=== PATIENT | female | born 1985 | race Caucasian/White ===

== ENCOUNTER 2017-06-30 16:35 | Emergency (ER) | payer OTHER ==
[~2017-06-30] VITALS: Ht 167.6 cm; Wt 86.2 kg
--- OUTSIDE RECORDS SUMMARY | ~2017-06-30 | XMS ---
Demographics + + + | Address | [address] | | | [place] [address] | + + + | Preferred Language | Unknown | + + + | Marital Status | Unknown | + + + | Faith Affiliation | Unknown | + + + | Race | Unknown | + + + | Ethnic Group | Unknown | + + + Author + + + | Author | [facility] | + + + | Organization | [facility] | + + + | Address | [address] | | | [place] [address] | + + + | Phone | | + + + Care Team Providers + + + + | Care Toy Designer Name | Role | Phone | + + + + Unavailable | Unavailable | + + + + PROBLEMS +---------+ + + +--------+ + + | Type | Condition | ICD9-CM | [id number] | Onset | Condition | SNOMED | | | | Code | Code | Dates | Status | Code | +---------+ + + +--------+ + + | Problem | Encounter | Z34.90 | | | Active | [id number] | | | for | | | | | | | | supervisio | | | | | | | | n of | | | | | | | | normal | | | | | | | | | | | | | | +---------+ + + +--------+ + + | Problem | Asthma | | J45.909 | | Active | [id number] | +---------+ + + +--------+ + + ALLERGIES Unknown Allergies SOCIAL HISTORY No smoking Hx information available PLAN OF CARE VITAL SIGNS MEDICATIONS Unknown Medications RESULTS No Results PROCEDURES No Known procedures IMMUNIZATIONS No Known Immunizations"
[~2017-06-30 16:35] MED LIST: ADVAIR 250-501 EACH INH; ALBUTEROL SULF8.5 GM INH; CELEXA20 MG PO; CELEXA40 MG PO; CLARITIN10 MG PO; CYCLOBENZAPRINE5 MG PO; MACROBID 100 M100 MG PO; OMEPRAZOLE20 MG PO; ONDANSETRON ODT8 MG PO; PHENADOZ25 MG PR; PHENERGAN25 MG RC; POTASSIUM CHLO20 ME1 PO; PRENATAL 19 CH1 EAC1 PO; PRENATAL VITAM1 EAC7 PO; PROMETHAZINE HC25 M1 PO; PROMETHAZINE HC25 MG PR; REGLAN10 MG PO; ZOFRAN ODT4 MG PO; ZOFRAN ODT4 MG SL; ZOFRAN4 MG PO
== END 2017-06-30 16:48 | disposition home or self-care (01) ==
LOC: ED 16:35
DX: Z00.8 Encounter for other general examination (principal)

== ENCOUNTER 2017-08-10 01:40 | Inpatient (IN) | payer OTHER ==
[~2017-08-10] VITALS: Ht 167.6 cm; Wt 91.0 kg
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
--- OUTSIDE RECORDS SUMMARY | ~2017-08-10 | XMS ---
Demographics + + + | Address | [address] | | | [place] [address] | + + + | Preferred Language | Unknown | + + + | Marital Status | Unknown | + + + | Lutheran Affiliation | Unknown | + + + | Race | Unknown | + + + | Ethnic Group | Unknown | + + + Author + + + | Author | [facility] | + + + | Organization | [facility] | + + + | Address | [address] | | | [place] [address] | + + + | Phone | | + + + Care Team Providers + + + + | Care Hog Ringer Name | Role | Phone | + + + + Unavailable | Unavailable | + + + + PROBLEMS +---------+ + + +--------+ + + | Type | Condition | ICD9-CM | [id number] | Onset | Condition | SNOMED | | | | Code | Code | Dates | Status | Code | +---------+ + + +--------+ + + | Problem | Encounter | Z34.90 | | | Active | [id number] | | | for | | | | | | | | supervisio | | | | | | | | n of | | | | | | | | normal | | | | | | | | | | | | | | +---------+ + + +--------+ + + | Problem | Asthma | | J45.909 | | Active | [phone] | +---------+ + + +--------+ + + [...]
--- OUTSIDE RECORDS SUMMARY | ~2017-08-10 | XMS ---
Demographics + + + | Address | [address] | | | [place] [address] | + + + | Preferred Language | Unknown | + + + | Marital Status | Unknown | + + + | Rastafari Affiliation | Unknown | + + + | Race | Unknown | + + + | Ethnic Group | Unknown | + + + Author + + + | Author | [facility] | + + + | Organization | [facility] | + + + | Address | [address] | | | [place] [address] | + + + | Phone | | + + + Care Team Providers + + + + | Care Flavorer Name | Role | Phone | + + + + Unavailable | Unavailable | + + + + PROBLEMS +---------+ + + +--------+ + + | Type | Condition | ICD9-CM | [id number] | Onset | Condition | SNOMED | | | | Code | Code | Dates | Status | Code | +---------+ + + +--------+ + + | Problem | Encounter | Z34.90 | | | Active | [id number] | | | for | | | | | | | | supervisio | | | | | | | | n of | | | | | | | | normal | | | | | | | | | | | | | | +---------+ + + +--------+ + + | Problem | Asthma | | J45.909 | | Active | [id number] | +---------+ + + +--------+ + + [...]
--- OUTSIDE RECORDS SUMMARY | ~2017-08-10 | XMS ---
Demographics + + + | Address | [address] | | | [place] [address] | + + + | Preferred Language [...] | + + + | Organization | [facility] | + + + | Address | [address] | | | [place] [address] | + + + | Phone | | + + + Care Team Providers + + + + | Care Day Habilitation Specialist Name | Role | Phone | + + + + Unavailable | Unavailable | + + + + PROBLEMS +---------+ + + +--------+ + + | Type | Condition | ICD9-CM | APU53-ZE | Onset | Condition | SNOMED | | | | Code | Code | Dates | Status | Code | +---------+ + + +--------+ + + | Problem | Encounter | Z34.90 | | | Active | [id number] | | | for | | | | | | | | supervisio | | | | | | | | n of | | | | | | | | normal | | | | | | | | | | | | | | +---------+ + + +--------+ + + | Problem | Asthma | | J45.909 | | Active | [phone] | +---------+ + + +--------+ + + [...]
--- OUTSIDE RECORDS SUMMARY | ~2017-08-10 | XMS ---
Demographics + + + | Address | [address] | | | [place] [address] | + + + | Preferred Language | Unknown | + + + | Marital Status | Unknown | + + + | Judaism Affiliation | Unknown | + + + | Race | Unknown | + + + | Ethnic Group | Unknown | + + + Author + + + | Author | [facility] | + + + | Organization | [facility] | + + + | Address | [address] | | | [place] [address] | + + + | Phone | | + + + Care Team Providers + + + + | Care Commissioning Manager Name | Role | Phone | + + + + Unavailable | Unavailable | + + + + PROBLEMS +---------+ + + +--------+ + + | Type | Condition | ICD9-CM | OQI71-DU | Onset | Condition | SNOMED | | | | Code | Code | Dates | Status | Code | +---------+ + + +--------+ + + | Problem | Encounter | Z34.90 | | | Active | [id number] | | | for | | | | | | | | supervisio | | | | | | | | n of | | | | | | | | normal | | | | | | | | | | | | | | +---------+ + + +--------+ + + | Problem | Asthma | | J45.909 | | Active | [phone] | +---------+ + + +--------+ + + [...]
--- NOTE | 2017-08-10 05:32 | NUR ---
08/10/17 0532 Meghann Whitney 0524 - PT ARRIVED TO PACU. MAINTAINING OWN AIRWAY. DENIES PAIN AND NAUSEA.
--- NOTE | 2017-08-11 15:37 | OR ---
[facility] [address], [place] [address] Signed DATE OF PROCEDURE: 08/10/17 PREOPERATIVE DIAGNOSES The patient is a 32-year-old, 6, para 4 at 37.6 weeks with estimated gestational age, who presents to a birthing center with spontaneous rupture of membranes in active labor. She is for repeat of the section. Has a history of hyperemesis gravidarum, anemia, of borderline personality disorder with depression and PTSD, asthma. The has been complicated by multiple episodes of hypokalemia for which she has been treated with IV therapy. POSTOPERATIVE DIAGNOSES The patient is a 32-year-old, 6, para 4 at 37.6 weeks with estimated gestational age, who presents to a birthing center with spontaneous rupture of membranes in active labor. She is for repeat of the section. Has a history of hyperemesis gravidarum, anemia, of borderline personality disorder with depression and PTSD, asthma. The has been complicated by multiple episodes of hypokalemia for which she has been treated with IV therapy. PROCEDURE Emergent low transverse section with bilateral tubal ligation and lysis of adhesions. GARDENING SUPERVISOR SURGEON: Fantasma Young MD. ANESTHESIOLOGIST: Jann Rabago CRNA. IV FLUIDS: 1750 mL. ESTIMATED BLOOD LOSS: 750 mL. URINE OUTPUT: 300 mL with Silva draining to gravity. FINDINGS Extremely scarred abdominal wall with fascial thickening and scarring as well as omental adhesions and abnormally thickened uterine wall with scarring. PROCEDURE TECHNIQUE The patient was taken to the operating room with IV fluids hanging. She was placed in the sitting upright position and a spinal was placed. She was then repositioned in the supine position with a left lateral tilt. She was prepped and draped in the normal sterile fashion. A Silva catheter had been placed with sterile technique prior to the prep. She was then checked for anesthesia. A Pfannenstiel skin incision was made with a Electronically Signed By: ANJELICA MOREL MD 08/11/17 1537 PATIENT NAME: EH MCCRAY OPERATIVE REPORT DATE OF : 89 PHYSICIAN: ANJELICA MOREL MD REPORT #: [id number] REPORT IS CONFIDENTIAL AND NOT TO BE RELEASED WITHOUT AUTHORIZATION [facility] [address], [place] [address] Signed scalpel through the skin and through the subcutaneous tissue to the fascia, which was nicked in the midline. Bovie cautery was used as well as Garnett scissors. The incision was extended laterally with some difficulty due to significant scarring and thickening of that layer. Saji clamps were then used to grasp the inferior edge of the fascia and tented up and exposed the rectus abdominis muscles, which were off sharply and bluntly. The same was performed superiorly and the rectus abdominis muscles were in the midline. Garnett scissors were used to extend that incision superiorly and inferiorly. The attention was then turned to the bladder which was noted be quite low and the Karel retractor was placed into the incision and tightened down against the anterior abdominal wall. The uterovesical fascia was then easily visualized and it was noted that there was some significant scarring. A bladder flap was then created by entering the uterovesical fascia with Metzenbaum scissors and pushing the bladder down below the edge of the lower uterine segment. The scalpel was then used to incise the lower uterine segment, which was noted to be quite thin and the excision was extended laterally and digitally. The amniotic sac was noted to bulge out and was easily ruptured and baby's shoulders were noted to be present at the incision site. The blindstitch machine operator's hand was placed through the incision into the pelvis and baby's head and shoulders were lifted out through the incision in the direct OA position. The baby's right arm and shoulder were then delivered through the incision and then baby was delivered completely. The baby was bulb suctioned both mouth and nose, and cord was clamped and cut. The baby was passed off to the awaiting pediatric nurse. Baby was noted to have a weight of 7 pounds 11 ounces with Apgars of 8 at one minute and 9 at five minutes. Attention was then turned to the uterus where the cord blood had been drawn, the placenta was off manually and laparotomy sponge was used to clear out all membranes and debris from the uterus. The lateral apices were clamped with T clamps. There was a small extension of the incision noted on the patient's left apex. An 0 Monocryl was used to reapproximate the uterine incision in a continuous running locked fashion. A second layer was used to imbricate the first with 0 Monocryl continuous running in a vertical mattress fashion. There were some areas that needed to be oversewn with [id number] due to the bleeding and areas that were thin or had extra vasculature. Once good hemostasis was achieved, the pelvis was then irrigated with normal saline. Attention was then turned to the right fallopian tube, which was grasped with a Smita clamp. A small hole was made through the mesosalpinx and 0 chromic gut was then tied on either side of the tube. Tubal segment was cut with Metzenbaum scissors and passed off to pathology. Good hemostasis was achieved in those areas that were excised and same was performed on the left fallopian tube. Both sides were hemostatic and the uterus was then returned to the pelvis. The incision again inspected for hemostasis, which was adequate and the Karel retractor was then removed from the pelvis. The peritoneum was then identified and clamped with Nica clamps x3. The omentum was noted to be adherent to several areas and had to be freed from the peritoneum and so there was no entrapment of bowel. It was tied off and excised using the 0 chromic gut. Once it was cleared, the peritoneum was then reapproximated with 2-0 Vicryl in a Electronically Signed By: ANJELICA MOREL MD 08/11/17 1537 PATIENT NAME: EH MCCRAY OPERATIVE REPORT DATE OF : 89 PHYSICIAN: ANJELICA MOREL MD REPORT #: [id number] REPORT IS CONFIDENTIAL AND NOT TO BE RELEASED WITHOUT AUTHORIZATION [facility] [address] [place] [id number] Signed continuous running fashion. Good hemostasis was achieved and prior to closing the peritoneum, the ACell graft was placed over the uterine incision to promote healing. Attention was then turned to the rectus abdominis muscles, which were reapproximated with 0 Vicryl interrupted x2. There was a small area with a rent in the fascial layer anteriorly that was reapproximated with ksifhj-yo-uhneh 0 Vicryl as well and then the fascia and prior to doing this, the rectus abdominis muscle was sprinkled with ACell powder again to promote healing. The fascia was then reapproximated using 0 Vicryl in a continuous running fashion from the right apex to the midline and from the left apex to the midline. Good hemostasis was achieved and the subcutaneous layer was then approximated using 2-0 Vicryl in a continuous running fashion. A-Cell powder was sprinkled on the layers in order to promote healing and the skin was then closed using stainless steel stapler. A pressure dressing was placed over the incision and the uterus was expressed of all clots and debris. The patient was then taken to the [facility] room in stable condition. All sponge, needle, and instrument counts were correct. There were no complications and the baby had been taken to the nursery. MD SHUBHAM Adams/Ervin /[id number] cc: Sumit Levi DO Electronically Signed By: ANJELICA MOREL MD 08/11/17 1537 PATIENT NAME: EH MCCRAY JERILYN OPERATIVE REPORT DATE OF : 89 PHYSICIAN: ANJELICA MOREL MD REPORT #: [id number] REPORT IS CONFIDENTIAL AND NOT TO BE RELEASED WITHOUT AUTHORIZATION
== END 2017-08-12 11:35 | disposition home or self-care (01) | DRG 766 ==
LOC: FBCO 01:40 → FBC 01:55
PROVIDERS: ADMIT Obstetrics & Gynecology
PROC: 0UT70ZZ Resection of Bilateral Fallopian Tubes, Open Approach (ICD-10-PCS; 2017-08-10)
PROC: 10D00Z1 Extraction of Products of Conception, Low, Open Approach (ICD-10-PCS; principal; 2017-08-10 03:50)
DX: O34.211 Maternal care for low transverse scar from previous cesarean delivery (principal); Z3A.37 37 weeks gestation of pregnancy; Z37.0 Single live birth; O42.02 Full-term premature rupture of membranes, onset of labor within 24 hours of rupture; Z30.2 Encounter for sterilization
CPT/HCPCS: 01961; 36415; 80048; 85027; 90674; 94640; 94667; 94668; C1763; G0008; J0690; J1200; J1885; J2274; J2405; J2550; J2590; J2765; J3010; J3105; J3480; J7120

== ENCOUNTER 2017-09-17 08:57 | Emergency (ER) | payer OTHER ==
[~2017-09-17] VITALS: Ht 167.6 cm; Wt 90.7 kg
== END 2017-09-17 12:13 | disposition home or self-care (01) ==
LOC: ED 08:57
DX: O99.355 Diseases of the nervous system complicating the puerperium (principal); G43.A0 Cyclical vomiting, in migraine, not intractable; O99.345 Other mental disorders complicating the puerperium; F32.9 Major depressive disorder, single episode, unspecified; O99.335 Smoking (tobacco) complicating the puerperium; F17.200 Nicotine dependence, unspecified, uncomplicated; Z90.49 Acquired absence of other specified parts of digestive tract; Z88.0 Allergy status to penicillin; Z79.899 Other long term (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
CPT/HCPCS: 80053; 83690; 85025; 96361; 96372; 96374; 96375; 99283; J2405; J2550; J3486; J7030

== ENCOUNTER 2019-01-03 15:44 | Emergency (ER) | payer OTHER ==
[~2019-01-03] VITALS: Ht 167.6 cm; Wt 86.2 kg
--- OUTSIDE RECORDS SUMMARY | 2019-01-03 15:46 | XMS ---
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 Care History Substance Use/Overdose 01/28/2018 [facility] PATIENT CURRENTLY USING METHAMPHETAMINES. USE CAUTION WITH ANY NARCOTICS. PATIENT IS CURRENTLY HOMELESS AND HER CHILDREN ARE IN STATE CUSTODY. REFER TO MENTAL HEALTH FOLLOW UP AND ENCOURAGE DRUG/ALCOHOL REHABILITATION. E.D. VISIT COUNT (12 MO.) 1 [facility] TOTAL 1 NOTE: Visits indicate total known visits. ED/UCC VISIT TRACKING (12 MO.) 01/03/2019 15:45 [facility] [place] TYPE: Emergency COMPLAINT: - R EYE PAIN INPATIENT VISIT TRACKING (12 MO.) No inpatient visits to display in this time frame [id number]
[2019-01-03] MEDS ORDERED: CITALOPRAM HBR40 MG PO (16:00)
[2019-01-03] MEDS ORDERED: DOXYCYCLINE HY100 MG PO (16:14)
== END 2019-01-03 16:23 | disposition home or self-care (01) ==
LOC: ED 15:44
DX: L08.9 Local infection of the skin and subcutaneous tissue, unspecified (principal); J45.909 Unspecified asthma, uncomplicated; F43.10 Post-traumatic stress disorder, unspecified; F32.9 Major depressive disorder, single episode, unspecified; Z88.0 Allergy status to penicillin; Z79.899 Other long term (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
CPT/HCPCS: 99283

== ENCOUNTER 2019-02-15 10:39 | Emergency (ER) | payer OTHER ==
[~2019-02-15] VITALS: Ht 167.6 cm; Wt 86.2 kg
--- OUTSIDE RECORDS SUMMARY | ~2019-02-15 | XMS | Clinical Summary ---
Demographics + + + | Address | General Delivery | | | [place] [address] | + + + | Home Phone | | + + + | Preferred Language | Unknown | + + + | Marital Status | | + + + | Gnosticist Affiliation | Unknown | + + + | Race | Unknown | + + + | Ethnic Group | Unknown | + + + Author + + + | Author | [facility] | | | and [place] | + + + | Organization | [facility] | | | [...] Team Providers + +------+ + | Care Chief Of Staff Name | Role | Phone | + +------+ + | No, Physician | PP | Unavailable | + +------+ + Allergies + + + +--------+ + | Active Allergy | Reactions | Severity | Noted | Comments | | | | | Date | | + + + +--------+ + | Estradiol | Nausea And Vomiting | | | | + + + +--------+ + | Penicillins | Hives | | | | + + + +--------+ + Medications + + + +---------+------+------+-------+ | Medication | Sig | Dispensed | Refills | Star | End | Statu | | | | | | t | Date | s | | | | | | Date | | | + + + +---------+------+------+-------+ | 27-0.8 mg | Take 1 tablet by | | 0 | | | Activ | | multivitamin tablet | mouth Daily. | | | | | e | + + + +---------+------+------+-------+ | predniSONE | Take by mouth | | 0 | | | Activ | | (DELTASONE) 20 mg | Daily. | | | | | e | | tablet | | | | | | | + + + +---------+------+------+-------+ | | Inhale 1 puff into | | 0 | | | Activ | | fluticasone-salmeter | the lungs Twice | | | | | e | | ol (ADVAIR) 250-50 | Daily. | | | | | | | mcg/puff diskus | | | | | | | | inhaler | | | | | | | + + + +---------+------+------+-------+ | citalopram | Take 40 mg by mouth | | 0 | | | Activ | | (CELEXA) 40 mg | Daily. | | | | | e | | tablet | | | | | | | + + + +---------+------+------+-------+ Active Problems + + + | Problem | Noted Date | + + + | ASTHMA | | + + + | ALLERGIC RHINITIS | | + + + | DEPRESSION | | + + + | ECZEMA | | + + + Social History + + + +--------+ + | Tobacco Use | Types | Packs/Day | Years | Date | | | | | Used | | + + + +--------+ + | Former Smoker | Cigarettes | 0.5 | 0.5 | Quit: 02/16/2014 | + + + +--------+ + + +---+---+---+ | Smokeless Tobacco: | | | | | Never Used | | | | + +---+---+---+ + + +---------+ + | Alcohol Use | Drinks/We | oz/Week | Comments | | | ek | | | + + +---------+ + | No | | | | + + +---------+ + + + + | Sex Assigned at [...] recent travel history available. | + + Last Filed Vital Signs + + + + | Vital Sign | Reading | Time Taken | + + + + | Blood Pressure | 101/74 | 01/01/201843 PDT | + + + + | Pulse | 76 | 01/01/201843 PDT | + + + + | Temperature | 36.1 C (97 F) | 12/31/20172151 PDT | + + + + | Respiratory Rate | 14 | 01/01/201843 PDT | + + + + | Oxygen Saturation | 96% | 01/01/20184 PDT | + + + + | Inhaled Oxygen | - | - | | Concentration | | | + + + + | Weight | 73 kg (160 lb 15 oz) | 12/31/20172151 PDT | + + + + | Height | 167.6 cm (5' 6") | 12/31/20172151 PDT | + + + + | Body Mass Index | 25.98 | 12/31/20172151 PDT | + + + + Plan of Treatment + + + + + | Health Maintenance | Due Date | Last Done | Comments | + + + + + | Vaccine: | | | | | Dtap/Tdap/Td (1 - | 6 | | | | Tdap) | | | | + + + + + | Cervical Cancer | | 10/20/2008 | | | Screening (Pap) | 7 | | | + + + + + | Vaccine: Influenza | | | | | (Season Ended) | 9 | | | + + + + + Results Not on filefrom Last 3 Months Insurance + +--------+ +--------+ +---------+--------+ | Payer | Benefi | Subscriber | Effect | Phone | Address | Type | | | t Plan | ID | gus | | | | | | / | | Dates | | | | | | Group | | | | | | + +--------+ +--------+ +---------+--------+ | [employer] | CAREOR | [id number] | | [phone] | | Medica | | HMO | EGON | | 018-Pr | 0 | | id | | | HEALTH | | esent | | | | | | SHARE | | | | | | | | MDCD | | | | | | | | HMO [place] | | | | | | + +--------+ +--------+ +---------+--------+ + +--------+ +--------+ + + | Guarantor Name | Accoun | Relation to | Date | Phone | Billing Address | | | t Type | Patient | of | | | | | | | | | | + +--------+ +--------+ + + | Patito Nelson | Person | Self [birth year] | General Delivery | | | al/Fam | | 1984 | [phone] | [address] | | | may | | | [address] ([place]) | [address] | + +--------+ +--------+ + + Advance Directives Patient has advance care planning documents on file. For more information, please contact:[facility] [place] [address]
--- OUTSIDE RECORDS SUMMARY | ~2019-02-15 | XMS | Clinical Summary ---
Demographics + + + | Address | General Delivery | | | [place] [address] | + + + | Home Phone | | + + + | Preferred Language | Unknown | + + + | Marital Status | | + + + | Catholic Affiliation | Unknown | + + + | Race | Unknown | + + + | Ethnic Group | Unknown | + + + Author + + + | Author | [facility] | | | and [place] | + + + | Organization | [facility] | | | [...] Team Providers + +------+ + | Care Pit Shoveler Name | Role | Phone | + [...] +---------+--------+ | [employer] | CAREOR | [id number] | | [phone] | | Medica | [...] | | may | | | 4 ([place]) | [address] | + +--------+ +--------+ + + Advance Directives Patient has advance care planning documents on file. For more information, please contact:[facility] [place] [address]
[~2019-02-15 10:39] MED LIST changes: +CITALOPRAM HBR40 MG PO; +DOXYCYCLINE HY100 MG PO
--- OUTSIDE RECORDS SUMMARY | 2019-02-15 10:42 | XMS ---
PreManage Notification: EH MCCRAY Security Outsole Tacker Events No recent Security Events currently on file CRITERIA MET - Group Notification - [facility] CARE PROVIDERS FREDY ADAMS Physician 01/04/2019-Current PHONE: Unknown KIMBERLEE Stoddard Internal Medicine Current PHONE: Unknown [employer] Case or World History Teacher Current PHONE: [phone] FREDY Parham Current PHONE: [phone] Saleem has no Care Guidelines for this patient. Care History Substance Use/Overdose 01/28/2018 [facility] PATIENT CURRENTLY USING METHAMPHETAMINES. USE CAUTION WITH ANY NARCOTICS. PATIENT IS CURRENTLY HOMELESS AND HER CHILDREN ARE IN STATE CUSTODY. REFER TO MENTAL HEALTH FOLLOW UP AND ENCOURAGE DRUG/ALCOHOL REHABILITATION. Steve VISIT COUNT (12 MO.) 2 [facility] TOTAL 2 NOTE: Visits indicate total known visits. ED/UCC VISIT TRACKING (12 MO.) 02[facility]15/2019 10:[facility] [place] TYPE: Emergency COMPLAINT: - DIFFICULTY BREATHING 01/03/2019 15:[address] 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
[2019-02-15] MEDS ORDERED: PREDNISONE20 MG PO (11:10)
[2019-02-15] MEDS ORDERED: VENTOLIN HFA18 GM INH (11:10)
== END 2019-02-15 11:23 | disposition home or self-care (01) ==
LOC: ED 10:39
DX: J45.901 Unspecified asthma with (acute) exacerbation (principal); F43.10 Post-traumatic stress disorder, unspecified; F32.9 Major depressive disorder, single episode, unspecified; Z88.0 Allergy status to penicillin; Z79.899 Other long term (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
CPT/HCPCS: 94640; 99284; J7512

== ENCOUNTER 2019-08-04 22:29 | Observation (INO) | payer OTHER ==
[~2019-08-04] VITALS: Ht 167.6 cm; Wt 86.0 kg
--- OUTSIDE RECORDS SUMMARY | ~2019-08-04 | XMS | Clinical Summary ---
Demographics + + + | Address | General Delivery | | | [place] [address] | + + + | Home Phone | | + + + | Preferred Language | Unknown | + + + | Marital Status | | + + + | Catholic Affiliation | Unknown | + + + | Race | Unknown | + + + | Ethnic Group | Unknown | + + + Author + + + | Author | [facility] | | | and [place] | + + + | Organization | [facility] | | | [...] Team Providers + +------+ + | Care Certification Technician Name | Role | Phone | + [...] +---------+--------+ | [employer] | CAREOR | [id number] | | [phone] | | Medica | [...] | | may | | | 4 ([place]) | [address] | + +--------+ +--------+ + + Advance Directives Patient has advance care planning documents on file. For more information, please contact:[facility] [place] [address]
--- OUTSIDE RECORDS SUMMARY | ~2019-08-04 | XMS | Clinical Summary ---
Demographics + + + | Address | General Delivery | | | [place] [address] | + + + | Home Phone | | + + + | Preferred Language | Unknown | + + + | Marital Status | | + + + | Judaism Affiliation | Unknown | + + + [...] Team Providers + +------+ + | Care Commercial Intelligence Manager Name | Role | Phone | + [...] +---------+--------+ | [employer] | CAREOR | [id number] | | [phone] | | Medica | [...] | | may | | | 4 ([place]) | [address] | + +--------+ +--------+ + + Advance Directives Patient has advance care planning documents on file. For more information, please contact:[facility] [place] [address]
--- OUTSIDE RECORDS SUMMARY | ~2019-08-04 | XMS | Clinical Summary ---
Demographics + + + | Address | General Delivery | | | [place] [address] | + + + | Home Phone | | + + + | Preferred Language | Unknown | + + + | Marital Status | | + + + | Restorationist Affiliation | Unknown | + + + | Race | Unknown | + + + | Ethnic Group | Unknown | + + + Author + + + | Author | [facility] | | | and [place] | + + + | Organization | [facility] | | | [...] Providers + +------+ + | Care Commercial Attache Name | Role | Phone | + [...] +---------+--------+ | [employer] | CAREOR | [id number] | | [phone] | | Medica | [...] | | may | | | 4 ([place]) | [address] | + +--------+ +--------+ + + Advance Directives Patient has advance care planning documents on file. For more information, please contact:[facility] [place] [address]
[~2019-08-04 22:29] MED LIST changes: +PREDNISONE20 MG PO; +VENTOLIN HFA18 GM INH
--- OUTSIDE RECORDS SUMMARY | 2019-08-04 22:32 | XMS ---
PreManage Notification: [facility] Security Systems Management Consultant Events No recent Security Events currently on file CRITERIA MET - Group Notification - [facility] - Has [facility] CARE PROVIDERS FREDY ADAMS Physician Labor Supervisor 01/04/2019-Current PHONE: Unknown Shreyas Rangel Internal Medicine: Pulmonary Disease 02/15/2019-Current PHONE: Unknown KIMBERLEE Stoddard Internal Medicine Current PHONE: Unknown [employer] Case or Batch Still Operator Current PHONE: [phone] FREDY ANGIE Other Current PHONE: [phone] Saleem has no Care Guidelines for this patient. Care History Medical/Surgical 02/15/2019 [facility] - PATIENT CURRENT PCP IS DR RANGEL OF 02/04/19. NEXT FOLLOW UP APT IS ON . - Patient is currently established with [facility]. If patient is seen in the ED during business hours. Please contact CHWs at [facility]. Care Recommendation: This patient has had 5 or more Emergency Department visits in the last 12 months.\T\nbsp; Patient requires education on the scope and purpose of the ED as an acute care provider not a Primary Care Provider and should not be utilized for chronic conditions.\T\nbsp; These are guidelines and the provider should exercise clinical judgment when providing care. Substance Use/Overdose 01/28/2018 [facility] PATIENT CURRENTLY USING METHAMPHETAMINES. USE CAUTION WITH ANY NARCOTICS. PATIENT IS CURRENTLY HOMELESS AND HER CHILDREN ARE IN STATE CUSTODY. REFER TO MENTAL HEALTH FOLLOW UP AND ENCOURAGE DRUG/ALCOHOL REHABILITATION. E.D. VISIT COUNT (12 MO.) 3 [facility]. TOTAL 3 NOTE: Visits indicate total known visits. ED/UCC VISIT TRACKING (12 MO.) 08/04/2019 22:29 [facility] [place] TYPE: Emergency COMPLAINT: - SOB 02/15/2019 10:39 [facility] [place] TYPE: Emergency COMPLAINT: - DIFFICULTY BREATHING DIAGNOSES: - Other intermediate project manager (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 - Shortness of breath - Allergy status to penicillin - Post-traumatic stress disorder, unspecified - Major depressive disorder, single episode, unspecified - Unspecified asthma with (acute) exacerbation 01/03/2019 15:[address] [facility] [place] TYPE: Emergency COMPLAINT: - R EYE PAIN DIAGNOSES: - Localized swelling, mass and lump, head - Local infection of the skin and subcutaneous tissue, unsp - Unspecified asthma, uncomplicated - Post-traumatic stress disorder, unspecified - Allergy status to penicillin - Major depressive disorder, single episode, unspecified - Other intermediate project manager (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 INPATIENT VISIT TRACKING (12 MO.) No inpatient visits to display in this time frame [id number]
--- NOTE | 2019-08-05 01:50 | NUR ---
PT TO ROOM FROM ED VIA STRETCHER. PT TRANSFERRED SELF TO BED, NO SOB NOTED, 15L O2 VIA OXYMASK, SATS 92%. CPOX IN PLACE. PT DENIES SOB, PAIN, OR NAUSEA. ASSESSMENT COMPLETE. PT ORIENTED TO ROOM, ENCOURAGED TO USE NURSE CALL LIGHT WHEN GETTING OOB. WARM BLANKETS GIVEN PER PT REQUEST. PT DENIES FURTHER NEEDS AT THIS TIME. CALL LIGHT IN REACH.
--- NOTE | 2019-08-05 02:51 | NUR ---
PT RESTING IN BED WITH EYES CLOSE, LYING FLAT. CPOX 95% ON 15L OXYMASK, HR 81, RR 22. CALL LIGHT IN REACH.
--- NOTE | 2019-08-05 04:22 | NUR ---
PT OOB AMB TO BR TO VOID 400 ML CL YELLOW URINE. MIKEY FAIR. INCREASED RR WITH AMB, UNLABORED, PT DENIES SOB. O2 SATS 95% ON 10L OXYMASK. NO FURTHER NEEDS AT THIS TIME.
--- NOTE | 2019-08-05 04:24 | NUR ---
O2 SATS 99% ON 15L OXYMASK AT REST. O2 TITRATED TO 10L. RR EVEN AND UNLABORED.
--- NOTE | 2019-08-05 06:26 | NUR ---
PT RESTING IN BED WITH EYES CLOSED. O2 SATS 96% 10L OXYMASK. RR EVEN AND UNLABORED. UP TO BR TO VOID 400 ML YELLOW URINE, MIKEY WELL. BACK TO BED. DENIES SOB WITH AMBULATION, HR 80'S. I & O COMPLETE. NO OTHER REQUESTS AT THIS TIME.
--- NOTE | 2019-08-05 06:28 | NUR ---
PT RESTED WELL AFTER ARRIVING TO THE FLOOR. OXYGEN TITRATED FROM 15L TO 10L PER OXYMASK. PT HAS DENIED SOB. RR EVEN AND UNLABORED. WHEEZES IN BILATERAL UPPER LOBES, DIMINISHED IN THE BASES. IV FLUIDS INFUSING WITHOUT DIFFICULTY. PT AMB WITH MINIMAL ASSIST. CPOX AND TELE #[address]
--- NOTE | 2019-08-05 07:38 | NUR ---
0715: REPORT RECIEVED FROM MIKE ROSADO. PT SLEEPING, SAT 91% ON 11L VIA OXYMASK. TELE READS SR AT 65. CALL CHANDLER WITHIN REACH.
[2019-08-05] MEDS ORDERED: VENTOLIN HFA18 GM INH (08:23)
[2019-08-05] MEDS ORDERED: TRAZODONE HCL50 MG PO (08:24)
--- NOTE | 2019-08-05 08:35 | NUR ---
PT RESTING IN HER BED WITH NO COMPLAINTS OF SOB, SAT 94%. O2 DECREASED TO 8L VIA OXYMASK AND SAT REMAINS UNCHANGED. PT REMAINS ON CPOX AND WILL CONTINUE TO MONITOR. PT INSTRUCTED TO CALL WITH ANY SOB AND SHE STATES UNDERSTANDING.
--- NOTE | 2019-08-05 09:21 | NUR ---
PT SITTING IN BED. PT WAITING FOR BREAKFAST. PT WANTING TO GO HOME TODAY.
--- NOTE | 2019-08-05 09:45 | NUR ---
SPOKE WITH PATIENT IN ROOM. SHE STATES SHE LIVES IN AN APARTMENT, IS EMPLOYED. PLANS TO RETURN HOME AND KNOWS NO BARRIERS TO DO THAT SAFELY. SHE HAS A NEBULIZER IF NEEDED. PATIENT HAS NO AMBULATION ISSUES. DISCUSSED TO KNOW DIAGNOSIS, TEST RESULTS, MEDICATIONS AND THEIR SIDE EFFECTS AND WHO TO FOLLOW UP WITH AFTER DISCHARGE. QUESTIONS ANSWERED. WILL FOLLOW NEEDED.
--- NOTE | 2019-08-05 09:50 | NUR ---
SAT OM 6L VIA NC IS 96%, O2 DECREASED TO 3L. PT DENIES ANY SOB.
[2019-08-05] MEDS ORDERED: MONTELUKAST SOD10 MG PO (10:05)
--- NOTE | 2019-08-05 10:06 | NUR ---
MED REC COMPLETE
--- NOTE | 2019-08-05 10:38 | NUR ---
SAT 93%, O2 DECREASED TO 2L VIA NC. PT REMAINS ON CPOX AND DENIES ANY SOB.
--- NOTE | 2019-08-05 11:37 | NUR ---
Pt sleeping, sat 88%. o2 increased to 4l and sat increased to 92%.
--- NOTE | 2019-08-05 13:30 | NUR ---
SAT 93% WHILE SLEEPING ON 4L VIA NC. PT AWAKES TO VOICE AND DENIES ANY SOB OR OTHER PROBLEMS. SEE ASSESSMENT.
--- NOTE | 2019-08-05 13:59 | NUR ---
STAFF IN CARING FOR PT. WILL CHECK BACK
--- NOTE | 2019-08-05 14:49 | NUR ---
PT SLEEPING, SAT 93% ON 4L VIA NC.
--- NOTE | 2019-08-05 15:31 | NUR ---
PT SLEEPING, SAT 93% ON 4L.
--- NOTE | 2019-08-05 17:23 | NUR ---
Sat 95%, o2 decreased to 2l at this time. Pt sitting up in her bed talking with her visitor. Pt denies any sob or problems at this time.
--- NOTE | 2019-08-05 17:33 | NUR ---
Sat 94% on 2l at this time.
--- NOTE | 2019-08-05 20:22 | NUR ---
PATIENT IN NO RESPIRATORY DISTRESS, LAYING IN BED WATCHING TV WITH HER . DENIES PAIN. O2 SAT 91% ON 2L/NC. CALL LIGHT IN REACH.
--- NOTE | 2019-08-05 21:23 | NUR ---
PATIENT'S JUST STEPPED OUT FOR THE NIGHT, PATIENT RESTING IN BED WATCHING TV. CALL LIGHT IN REACH.
--- NOTE | 2019-08-05 23:16 | NUR ---
PATIENT SITTING IN BED PLAYING ON HER PHONE. NO NEEDS AT THIS TIME. SATS 93% ON ROOM AIR AT THIS TIME. CALL LIGHT IS IN REACH.
--- NOTE | 2019-08-06 01:18 | NUR ---
PATIENT RESTING QUIETLY, EYES CLOSED, PULSE OX READS 92% ON ROOM AIR. REPIRATIONS REGULAR AND EVEN AT 18. CALL LIGHT IN REACH.
--- NOTE | 2019-08-06 03:01 | NUR ---
PATIENT IN RM AIR AND IS AT 93% ON HER PULSE OX AT THIS TIME RESTING ON HER LEFT SIDE, EYES CLOSED, RESPIRATIONS REGULAR AND EVEN AND CALL LIGHT IN REEACH WITH EYES CLOSED.
--- NOTE | 2019-08-06 04:21 | NUR ---
PATIENT SEEMS TO HAVE RESTED WELL MOST OF THE NIGHT OF O2 WITH A RA SAT OF 92-93%. PATIENT DID NOT WANT HER MIDNIGHT TREATMENT AND IS CURRENTLY SLEEPING SO HAS NOT GOTTEN THE 4AM TREATMENT EITHER. PATIENT IS BASICALLY INDEPENDENT AND IS PLANNING TO GO HOME TODAY. CALL LIGHT IS IN REACH.
--- NOTE | 2019-08-06 07:10 | NUR ---
PT RESTING SUPINE IN BED ALERT AND OREINETED, RA SAT 93% PER CPOX. PT EDUCATED ON SMOKING SESATION ND PT STATES "I'D RATHER KEEP SMOKING TO MANAGE MY MENTAL HEALTH THAN QUIT SMOKING" PT ROLLS OVER CLOSES HER EYES. PER NOC SHIFT RN PT WAS EDUCATED LAST NIGHT ON SMOKING CESSATION AND PT SAYS SHE WILL LOOK INTO ALTERNATIVE MEANS OF USING THC THAN SMOKING/USING INHALED "DABS VAPORAZOR". CALL LIGHT AND H2O IN REACH. NO NEEDS OR CONCERNS VOICED. RESPIRATIONS EVEN UNLABORED.
--- NOTE | 2019-08-06 08:35 | NUR ---
PT RESTING SUPINE IN BED ALERT AND ORIENTED TO VOICE, PT ASSESSMENT COMPLETED. PT PROVIDED MENUE AND PHONE TO ORDER BREAKFAST. CALL LIGHT AND H2O IN REACH. NO NEEDS OR CONCERNS VOICED.
--- NOTE | 2019-08-06 08:45 | NUR ---
WAS NOTIFIED BY ALONZO POWELL THAT PT REPORTS NEEDING TO DISCHARGE SOON OR SHE WILL BE FIRED FROM HER JOB. SPOKE WITH PT WHO STATES "I'VE MISSED A LOT OF WORK OVER THE PAST FEW WEEKS AND I KNOW THEY WILL FIRE ME IF I DONT GO BACK TODAY, I'M BREATHING JUST FINE, I DON'T FEEL SHORT OF BREATH WITHOUT OXYGEN ANYMORE" PT SATTING 92% ON RA AND EATING BREAKFAST. CALL LIGHT AND H2O IN REACH. MD NOTIFIED OF PT'S CONCERN AND REQUEST TO DISCHARGE AND NEED FOR WORK RELEASE.
[2019-08-06] MEDS ORDERED: ALBUTEROL2.5 MG/3 M INH (09:05)
[2019-08-06] MEDS ORDERED: DELTASONE20 MG PO (09:10)
[2019-08-06] MEDS ORDERED: ADVAIR 250-501 EACH INH (09:11)
[2019-08-06] MEDS ORDERED: FERROUS SULFAT325 MG PO (09:12)
--- NOTE | 2019-08-06 09:49 | NUR ---
PT DECLINED INFLUENZA VACCINE WHEN OFFERED PRIOR TO DISCHARGE.
== END 2019-08-06 10:00 | disposition home or self-care (01) ==
LOC: ED 22:29 → MS 22:30
PROVIDERS: ADMIT Internal Medicine
DX: J96.01 Acute respiratory failure with hypoxia (principal); J45.41 Moderate persistent asthma with (acute) exacerbation; F43.10 Post-traumatic stress disorder, unspecified; F32.9 Major depressive disorder, single episode, unspecified; F60.9 Personality disorder, unspecified; N92.0 Excessive and frequent menstruation with regular cycle; D50.0 Iron deficiency anemia secondary to blood loss (chronic); F17.290 Nicotine dependence, other tobacco product, uncomplicated; E87.6 Hypokalemia; E83.42 Hypomagnesemia; Z79.899 Other long term (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; Z88.0 Allergy status to penicillin
CPT/HCPCS: 36600; 71045; 80053; 82728; 82803; 83540; 83735; 84466; 85025; 85379; 94640; 94645; 94762; 96361; 96374; 96375; 96376; 99285-25; G0378; J2920; J2930; J3475; J3480; J7030

== ENCOUNTER 2019-09-27 00:31 | Emergency (ER) | payer OTHER ==
[~2019-09-27] VITALS: Ht 167.6 cm; Wt 81.7 kg
[~2019-09-27 00:31] MED LIST changes: +ALBUTEROL2.5 MG/3 M INH; +DELTASONE20 MG PO; +FERROUS SULFAT325 MG PO; +MONTELUKAST SOD10 MG PO; +TRAZODONE HCL50 MG PO
--- OUTSIDE RECORDS SUMMARY | 2019-09-27 00:34 | XMS ---
PreManage Notification: EH MCCRAY Security Telegraphic Typewriter Operator Events No recent Security Events currently on file CRITERIA MET - Group Notification - [facility] - Has [facility] CARE PROVIDERS FREDY ADAMS Physician Wireless Internet Installer 01/04/2019-Current PHONE: Unknown Shreyas Rangel Internal Medicine: Pulmonary Disease 02/15/2019-Current PHONE: Unknown KIMBERLEE Stoddard Internal Medicine Current PHONE: Unknown [employer] Case or Pack Out Operator Current PHONE: [phone] FREDY Parham Current PHONE: [phone] Guidelines Source: [employer] [facility] [place] Guidelines Date: 08/06/2019 Care Coordination: Mental health services provided by [employer].\T\nbsp; Please contact [employer] with mental health concerns.\T\nbsp; Zina/Jack Alvarez: [phone]\T\ nbsp; Celine: [phone]. Care History Substance Use/Overdose 01/28/2018 [facility] PATIENT CURRENTLY USING METHAMPHETAMINES. USE CAUTION WITH ANY NARCOTICS. PATIENT IS CURRENTLY HOMELESS AND HER CHILDREN ARE IN STATE CUSTODY. REFER TO MENTAL HEALTH FOLLOW UP AND ENCOURAGE DRUG/ALCOHOL REHABILITATION. Medical/Surgical 02/15/2019 [facility] - PATIENT CURRENT PCP IS DR RANGEL OF 02/04/19. NEXT FOLLOW UP APT IS ON . - Patient is currently established with [facility]. If patient is seen in the ED during business hours. Please contact CHWs at [facility]. Care Recommendation: This patient has had 5 or more Emergency Department visits in the last 12 months.\T\nbsp; Patient requires education on the scope and purpose of the ED as an acute care provider not a Primary Care Provider and should not be utilized for chronic conditions.\T\nbsp; These are guidelines and the provider should exercise clinical judgment when providing care. E.D. VISIT COUNT (12 MO.) [address] [facility] TOTAL 4 NOTE: Visits indicate total known visits. 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 - Shortness of breath - Allergy status to penicillin - Post-traumatic stress disorder, unspecified - Major depressive disorder, single episode, unspecified - Unspecified asthma with (acute) exacerbation 01/03/2019 15:45 [facility] [place] TYPE: Emergency COMPLAINT: - R EYE PAIN DIAGNOSES: - Localized swelling, mass and lump, head - Local infection of the skin and subcutaneous tissue, unsp - Unspecified asthma, uncomplicated - Post-traumatic stress disorder, unspecified - Allergy status to penicillin - Major depressive disorder, single episode, unspecified - 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 (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 INPATIENT VISIT TRACKING (12 MO.) 08/04/2019 22:30 [facility] [place] TYPE: Observation COMPLAINT: - ACUTE ASTHMA DIAGNOSES: - Hypokalemia - 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
== END 2019-09-27 02:28 | disposition home or self-care (01) ==
LOC: ED 00:31
DX: J45.901 Unspecified asthma with (acute) exacerbation (principal); F43.10 Post-traumatic stress disorder, unspecified; F32.9 Major depressive disorder, single episode, unspecified; Z87.891 Personal history of nicotine dependence; Z88.0 Allergy status to penicillin; Z79.899 Other long term (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
CPT/HCPCS: 71046; 80053; 83735; 85025; 94645; 96374; 99285-25; J2930

== ENCOUNTER 2019-10-25 21:03 | Emergency (ER) | payer OTHER ==
[~2019-10-25] VITALS: Ht 167.6 cm; Wt 81.7 kg
--- OUTSIDE RECORDS SUMMARY | ~2019-10-25 | XMS | Encounter Summary ---
Demographics + + + | Address | General Delivery | | | [place] [address] | + + + | Home Phone | | + + + | Preferred Language | Unknown | + + + | Marital Status | | + + + | Pentecostal Affiliation | Unknown | + + + | Race | Unknown | + + + | Ethnic Group | Unknown | + + + Author + + + | Author | [facility] | | | and [place] | + + + | Organization | [facility] | | | and [place] | + + + | Address | Unknown | + + + | Phone | Unavailable | + + + Support + + +---------+ + | Name | Relationship | Address | Phone | + + +---------+ + | Maris Cantrell | ECON | Unknown | | + + +---------+ + Care Team Providers + +------+ + | Care Internal Grinding Machine Operator Name | Role | Phone | + +------+ + PCP | Unavailable | + +------+ + Encounter Details +--------+ + + + + | Date | Type | Department | Care Team | Description | +--------+ + + + + | 09/19/ | Hospital | [facility] | [place], | | | 2008 | Encounter | [facility] | DO [address] | | | | | [address] [place] | [place] | | | | | [place] | [id number] | | | | | [address] | | | | | | [phone] | | | +--------+ + + + + Social History + +-------+ +--------+------+ | Tobacco Use | Types | Packs/Day | Years | Date | | | | | Used | | + +-------+ +--------+------+ | Never Assessed | | | | | + +-------+ +--------+------+ + + + | Sex Assigned at | Date Recorded | | | | + + + | Not on file | | + + + + + + + | Job Start Date | Occupation | Industry | + + + + | Not on file | Not on file | Not on file | + + + + + + + + | Travel History | Travel Start | Travel End | + + + + + + | No recent travel history available. | + + documented as of this encounter Plan of Treatment Not on filedocumented as of this encounter Visit Diagnoses Not on filedocumented in this encounter"
--- OUTSIDE RECORDS SUMMARY | ~2019-10-25 | XMS | Encounter Summary ---
Demographics + + + | Address | General Delivery | | | [place] [address] | + + + | Home Phone | | + + + | Preferred Language | Unknown | + + + | Marital Status | | + + + | Pentecostal Affiliation | Unknown | + + + | Race | Unknown | + + + | Ethnic Group | Unknown | + + + Author + + + | Author | [facility] | | | and [place] | + + + | Organization | [facility] | | | and [...] Team Providers + +------+ + | Care Tappet Adjuster Name | Role | Phone | + +------+ + PCP | Unavailable | + +------+ + Encounter Details +--------+ + + + + | Date | Type | Department | Care Team | Description | +--------+ + + + + | 03/10/ | Hospital | [facility] | Basia Dorsey, | | | 2011 | Encounter | [facility] | [address] | | | | | [facility] [address] | [place] [address] | | | | | [place], | [phone] | | | | | [place] [address] | | | | | | [phone] | | | +--------+ + + + [...] + + documented as of this encounter Medications at Time of Discharge + + + +---------+ + + | Medication | Sig | Dispensed | Refills | Start | End Date | | | | | | Date | | + + + +---------+ + + | citalopram | Take 20 mg by mouth | | 0 | 04/18/20 | | | (CELEXA) 20 mg | Daily. | | | 11 | 5 | | tablet | | | | | | + + + +---------+ + + | triamcinolone | Apply to rash 3 | | 0 | 06/22/20 | | | (KENALOG) 0.1% cream | times daily until | | | 10 | 5 | | | gone | | | | | + + + +---------+ + + documented as of this encounter Plan of Treatment Not on filedocumented as of this encounter Visit Diagnoses Not on filedocumented in this encounter"
--- OUTSIDE RECORDS SUMMARY | ~2019-10-25 | XMS | Encounter Summary ---
Demographics + + + | Address | General Delivery | | | [place] [address] | + + + | Home Phone | | + + + | Preferred Language | Unknown | + + + | Marital Status | | + + + | Shinto Affiliation | Unknown | + + + | Race | Unknown | + + + | Ethnic Group | Unknown | + + + Author + + + | Author | [facility] | | | and [place] | + + + | Organization | [facility] | | [...] Team Providers + +------+ + | Care Test Facility Engineer Name | Role | Phone | + +------+ + PCP | Unavailable | + +------+ + Encounter Details +--------+ + + + + | Date | Type | Department | Care Team | Description | +--------+ + + + + | 05/14/ | Hospital | [facility] | Sunny Alvarado | | | 2005 | Encounter | MED CTR EM[facility] | MD [address] | | | | CENTER [address] | [facility] | | | | | [place] | [place] [address] | | | | | [address] | [phone] | | | | | [phone] | | | +--------+ + + + [...]
--- OUTSIDE RECORDS SUMMARY | ~2019-10-25 | XMS | Encounter Summary ---
Demographics + + + | Address | General Delivery | | | [place] [address] | + + + | Home Phone | | + + + | Preferred Language | Unknown | + + + | Marital Status | | + + + | Hindu Affiliation | Unknown | + + + | Race | Unknown | + + + | Ethnic Group | Unknown | + + + Author + + + | Author | [facility] | | | and [place] | + + + | Organization | [facility] | | | and [...] Team Providers + +------+ + | Care Excelsior Machine Feeder Name | Role | Phone | + +------+ + PCP | Unavailable | + +------+ + Encounter Details +--------+ + + + + | Date | Type | Department | Care Team | Description | +--------+ + + + + | 07/02/ | Abstract | [facility] | | | 2011 | | Conversion Location | SR | | | | | [phone] | | | +--------+ + + + [...] + + documented as of this encounter Last Filed Vital Signs + + + + + | Vital Sign | Reading | Time Taken | Comments | + + + + + | Blood Pressure | 127/75 | 08/10/2011 12:00 AM | | | | | PDT | | + + + + + | Pulse | - | - | | + + + + + | Temperature | - | - | | + + + + + | Respiratory Rate | - | - | | + + + + + | Oxygen Saturation | - | - | | + + + + + | Inhaled Oxygen | - | - | | | Concentration | | | | + + + + + | Weight | 81.6 kg (180 lb) | 08/10/2011 12:00 AM | | | | | PDT | | + + + + + | Height | 168.9 cm (5' 6.5") | 02/14/2010 12:00 AM | | | | | PDT | | + + + + + | Body Mass Index | 28.62 | 02/14/2010 12:00 AM | | | | | PDT | | + + + + + documented in this encounter Plan of Treatment Not on filedocumented as of this encounter Procedures + +--------+ + + + | Procedure Name | Priori | Date/Time | Associated Diagnosis | Comments | | | ty | | | | + +--------+ + + + | PAP SMEAR | Routin | 10/20/2008 | | Results for this | | | e | 12:00 AM | | procedure are in the | | | | PST | | results section. | + +--------+ + + + documented in this encounter Results Pap Smear (10/20/2008 12:00 AM PST) + + | Specimen | + + | | + + + + + | Narrative | Performed At | + + + | | | + + + documented in this encounter Visit Diagnoses Not on filedocumented in this encounter
--- OUTSIDE RECORDS SUMMARY | ~2019-10-25 | XMS | Encounter Summary ---
Demographics + + + | Address | General Delivery | | | [place] [address] | + + + | Home Phone | | + + + | Preferred Language | Unknown | + + + | Marital Status | | + + + | Hoahaoism Affiliation | Unknown | + + + | Race | Unknown | + + + | Ethnic Group | Unknown | + + + Author + + + | Author | [facility] | | | and [place] | + + + | Organization | [facility] | | | [...] Team Providers + +------+ + | Care Licensed Physical Therapy Assistant Name | Role | Phone | + +------+ + PCP | Unavailable | + +------+ + Encounter Details +--------+ + + + + | Date | Type | Department | Care Team | Description | +--------+ + + + + | 04/13/ | [facility] | [facility] | Sumit Tinajero, | | | 2006 | Encounter | MED CTR XRAY [address] | [address] | | | | | [place] | [place] | | | | | [place] [address] | [address] | | | | | [phone] | | | +--------+ + + + [...]
--- OUTSIDE RECORDS SUMMARY | ~2019-10-25 | XMS | Encounter Summary ---
Demographics + + + | Address | General Delivery | | | [place] [address] | + + + | Home Phone | | + + + | Preferred Language | Unknown | + + + | Marital Status | | + + + | Mu-Ism Affiliation | Unknown | + + + | Race | Unknown | + + + | Ethnic Group | Unknown | + + + Author + + + | Author | [facility] | | | and [place] | + + + | Organization | [facility] | | | and [...] Team Providers + +------+ + | Care Scarf And Anneal Operator Name | Role | Phone | + +------+ + PCP | Unavailable | + +------+ + Encounter Details +--------+ + + + + | Date | Type | Department | Care Team | Description | +--------+ + + + + | 10/12/ | Hospital | [facility] | Sunny Alvarado | | | 2010 | Encounter | MED CTR EMERGENCY | MD Josue [address] | | | | | CENTER [address] | [facility] | | | | | [place] | [place] [address] | | | | | [address] | [phone] | | | | | [phone] | | | +--------+ + + + [...] | + +--------+ + + + | HCG, SERUM, QUANT | Routin | 10/12/2011 | | Results for this | | | e | 3:37 PM | | procedure are in the | | | | PST | | results section. | + +--------+ + + + | URINALYSIS, REFLEX | Routin | 10/12/2011 | | Results for this | | MICROSCOPIC AND/OR | e | 2:50 PM | | procedure are in the | | CULTURE | | PST | | results section. | + +--------+ + + + | US OB TRANSVAGINAL | | 10/12/2011 | | Results for this | | | | 1:14 PM | | procedure are in the | | | | PST | | results section. | + +--------+ + + + | US OB < 14 WEEKS | | 10/12/2011 | | Results for this | | SINGLE OR FIRST | | 1:14 PM | | procedure are in the | | GESTATION | | PST | | results section. | + +--------+ + + + documented in this encounter Results HCG, Serum, Quant (10/12/2011 3:37 PM PST) + + + + + + | Component | Value | Ref Range | Performed | Pathologist | | | | | At | Signature | + + + + + + | hCG Quant, | 102,960 (H)Comment: @HAS | <0.5 - 5.0 | [facility] | | | Serum | HhCG QC BEEN RUN? | mIU/mL | [facility] | | | | [facility] R[facility]: | | MEDICAL | | | | NON- FEMALE | | CENTER - | | | | <0.5-5.0 mIU/mL | | LABORATORY | | | | | | | | | | | | | | | | B-hCG LEVEL | | | | | | | | | | | | Gestational Age | | | | | | Expected hCG Values | | | | | | | | | | | | | | | | | | | | | | | | | | | | | | 0.2-1 week | | | | | | 5-50 | | | | | | mIU/mL | | | | | | 1-2 weeks | | | | | | | | | | | | 50-500 mIU/mL | | | | | | 2-3 | | | | | | weeks | | | | | | 100-5,000 mIU/mL | | | | | | 3-4 | | | | | | weeks | | | | | | 500-10,000 mIU/mL | | | | | | 4-5 | | | | | | weeks | | | | | | 1,000-50,000 mIU/mL | | | | | | | | | | | | 5-6 weeks | | | | | | 10,000-100,000 mIU/mL | | | | | | | | | | | | 6-8 weeks | | | | | | 15,000-200,000 mIU/mL | | | | | | | | | | | | 2-3 months | | | | | | 10,000-100,000 mIU/mL | | | | | | Testing performed on | | | | | | the Rahul Roseline | | | | | | Access Analyzer. | | | | + + + + + + + + | Specimen | + + | | + + + + + + + | Performing | Address | City/State/Zipcode | Phone Number | | Organization | | | | + + + + + | [facility] | [address] | [place] | [phone] | | [facility] | | [address] | | | - LABORATORY | | | | + + + + + | [facility] | [address] | [place], [place] | | | [facility] | | [address] | | | - LABORATORY | | | | + + + + + Urinalysis, Reflex Microscopic and/or Culture (10/12/2011 2:50 PM PST) + + + + + + | Component | Value | Ref Range | Performed | Pathologist | | | | | At | Signature | + + + + + + | COLLECTION | CL.CATCH | | [facility] | | | [facility] | | | [facility] | | | | | | MEDICAL | | | | | | CENTER - | | | | | | LABORATORY | | + + + + + + | Color | YELLOW | | [facility] | | | | | | [facility] | | | | | | MEDICAL | | | | | | CENTER - | | | | | | LABORATORY | | + + + + + + | Clarity | TURBID | | [facility] | | | | | | [facility] | | | | | | MEDICAL | | | | | | CENTER - | | | | | | LABORATORY | | + + + + + + | Glucose, | NEGATIVE | NEGATIVE mg/dL | [facility] | | | Urine | | | [facility] | | | | | | MEDICAL | | | | | | CENTER - | | | | | | LABORATORY | | + + + + + + | Bilirubin, | NEGATIVE | NEGATIVE | [facility] | | | Urine | | | [facility] | | | | | | MEDICAL | | | | | | CENTER - | | | | | | LABORATORY | | + + + + + + | Ketones, | SMALL | NEGATIVE | [facility] | | | Urine | | | [facility] | | | | | | MEDICAL | | | | | | CENTER - | | | | | | LABORATORY | | + + + + + + | Specific | 1.020 | 1.001 - 1.030 | [facility] | | | [place] | | | [facility] | | | | | | MEDICAL | | | | | | CENTER - | | | | | | LABORATORY | | + + + + + + | Blood, | NEGATIVE | NEGATIVE | [facility] | | | Urine | | | [facility] | | | | | | MEDICAL | | | | | | CENTER - | | | | | | LABORATORY | | + + + + + + | pH, Urine | 8.5 (H) | 5.0 - 8.0 | [facility] | | | | | | [facility] | | | | | | MEDICAL | | | | | | CENTER - | | | | | | LABORATORY | | + + + + + + | Protein, | TRACE | NEGATIVE mg/dL | [facility] | | | Urine | | | [facility] | | | | | | MEDICAL | | | | | | CENTER - | | | | | | LABORATORY | | + + + + + + | Urobilinoge | NORMAL | NORMAL EU/dL | [facility] | | | n, Urine | | | [facility] | | | | | | MEDICAL | | | | | | CENTER - | | | | | | LABORATORY | | + + + + + + | Nitrite, | NEGATIVE | NEGATIVE | [facility] | | | Urine | | | [facility] | | | | | | MEDICAL | | | | | | CENTER - | | | | | | LABORATORY | | + + + + + + | Leukocyte | NEGATIVE | NEGATIVE | [facility] | | | Esterase, | | | [facility] | | | Urine | | | MEDICAL | | | | | | CENTER - | | | | | | LABORATORY | | + + + + + + | WBC UA | NONE | 0 - 1 /hpf | [facility] | | | | | | [facility] | | | | | | MEDICAL | | | | | | CENTER - | | | | | | LABORATORY | | + + + + + + | RBC UA | NONE | 0 - 4 /hpf | [facility] | | | | | | [facility] | | | | | | MEDICAL | | | | | | CENTER - | | | | | | LABORATORY | | + + + + + + | SQUAMOUS | FEW | FEW /hps | [facility] | | | EPITHELIAL | | | [facility] | | | UA | | | MEDICAL | | | | | | CENTER - | | | | | | LABORATORY | | + + + + + + | BACTERIA UA | NONE | NONE /hpf | [facility] | | | | | | [facility] | | | | | | MEDICAL | | | | | | CENTER - | | | | | | LABORATORY | | + + + + + + | AMORPHOUS | LARGE | /hpf | [facility] | | | CRYSTALS | | | [facility] | | | | | | MEDICAL | | | | | | CENTER - | | | | | | LABORATORY | | + + + + + + | Culture | NO | | [facility] | | | Indicated | | | [facility] | | | | | | MEDICAL | | | | | | CENTER - | | | | | | LABORATORY | | + + + + + + + + | Specimen | + + | | + + + + + + + | Performing | Address | City/State/Zipcode | Phone Number | | Organization | | | | + + + + + | [facility] | [address] | [place] | [phone] | | [facility] | | [address] | | | - LABORATORY | | | | + + + + + | [facility] | [address] | [place] | | | [facility] | | [address] | | | - LABORATORY | | | | + + + + + US OB Transvaginal (10/12/2011 1:14 PM PST) + + | Specimen | + + | | + + + + + | Narrative | Performed At | + + + | [facility] Diagnostic Imaging Department | [place] | | [address], [place] | [facility] | | EARLY OBSTETRIC ULTRASOUND | DIAG IMG | | CLINICAL HISTORY: 9 WEEKS BY DATES. CRAMPING. FINDINGS: The | | | pelvic structures are imaged transabdominally and also using | | | endovaginal scanning. There is a living intrauterine | | | present with documented cardiac activity at 154 beats per | | | minute. By crown-rump measurement of 1.6 cm, this would date to 8 | | | weeks 1 day. A normal yolk sa c is seen. This would be too early | | | for anatomic evaluation, but no perigestational abnormaliti es | | | or hemorrhage are seen. Gestational sac size appears concordant. | | | The right ovary appears normal. The left ovary is not | | | visualized. No pelvic free fluid is seen. IMPRESSION: 1. | | | LIVING INTRAUTERINE MEASURING TO AN 8-WEEK 1-DAY | | | GESTATIONAL SIZE. NO PERIGESTATIONAL ABNORMALITIES ARE SEEN. | | | Dictated Date/Time: 10/13/2011 10:34 Transcribed Date/Time: | | | 10/13/2011 13:21 Asian Art Curator: <Electronically Signed | | | by Ryan Acevedo MD> 10/15/11 0945 | | + + + + + | Procedure Note | + + | Romie, Rad Conversion - 11/26/2013 4:27 PM Merged with [facility] | | Diagnostic Imaging Department [address] [facility] | | EARLY OBSTETRIC ULTRASOUND CLINICAL HISTORY: 9 WEEKS BY | | DATES. CRAMPING. FINDINGS: The pelvic structures are imaged transabdominally and also | | using endovaginal scanning. There is a living intrauterine present with | | documented cardiac activity at 154 beats per minute. By crown-rump measurement of | | 1.6 cm, this would date to 8 weeks 1 day. A normal yolk sac is seen. This would be | | too early for anatomic evaluation, but no perigestational abnormalities or | | hemorrhage are seen. Gestational sac size appears concordant. The right ovary appears | | normal. The left ovary is not visualized. No pelvic free fluid is seen. IMPRESSION: | | 1. LIVING INTRAUTERINE MEASURING TO AN 8-WEEK 1-DAY GESTATIONAL SIZE. NO | | PERIGESTATIONAL ABNORMALITIES ARE SEEN. Dictated Date/Time: 10/13/2011 | | 10:34Transcribed Date/Time: 10/13/2011 13:21Transcriptionist: <Electronically | | Signed by Ryan Acevedo MD> 10/15/11 0945 | |c is seen. This would be too early for anatomic evaluation, but no perigestational a bnormaliti | |es or hemorrhage are seen. Gestational sac size appears concordant. The right ovary appea rs normal. | | The left ovary is not visualized. No pelvic free fluid is seen. | | | |IMPRESSION: | |1. LIVING INTRAUTERINE MEASURING TO AN 8-WEEK 1-DAY GESTATIONAL SIZE. NO PERIGE STATIONAL | |ABNORMALITIES ARE SEEN. | | | |Dictated Date/Time: 10/13/2011 10:34 | |Transcribed Date/Time: 10/13/2011 13:21 | |Asian Art Curator: | |<Electronically Signed by Ryan Acevedo MD> 10/15/11 0945 | + + + +---------+ + + | Performing | Address | City/State/Zipcode | Phone Number | | Organization | | | | + +---------+ + + | [place] | | | | | [facility] | | | | + +---------+ + + US OB < 14 Weeks Singl or First Gestatio (10/12/2011 1:14 PM PST) + + | Specimen | + + | | + + + + + | Narrative | Performed At | + + + | [facility] Diagnostic Imaging Department | [facility] | | [address] [facility] | [facility] | | EARLY OBSTETRIC ULTRASOUND | DIAG IMG | | CLINICAL HISTORY: 9 WEEKS BY DATES. CRAMPING. FINDINGS: The | | | pelvic structures are imaged transabdominally and also using | | | endovaginal scanning. There is a living intrauterine | | | present with documented cardiac activity at 154 beats per | | | minute. By crown-rump measurement of 1.6 cm, this would date to 8 | | | weeks 1 day. A normal yolk sa c is seen. This would be too early | | | for anatomic evaluation, but no perigestational abnormaliti es | | | or hemorrhage are seen. Gestational sac size appears concordant. | | | The right ovary appears normal. The left ovary is not | | | visualized. No pelvic free fluid is seen. IMPRESSION: 1. | | | LIVING INTRAUTERINE MEASURING TO AN 8-WEEK 1-DAY | | | GESTATIONAL SIZE. NO PERIGESTATIONAL ABNORMALITIES ARE SEEN. | | | Dictated Date/Time: 10/13/2011 10:34 Transcribed Date/Time: | | | 10/13/2011 13:21 Asian Art Curator: [email or web address] <Electronically Signed | | | by Ryan Acevedo MD> 10/13/11 1858 | | + + + + + | Procedure Note | + + | Romie, Rupesh Conversion - 11/26/2013 4:27 PM Merged with [facility] | | Diagnostic Imaging Department [address] [place] [address] | | EARLY OBSTETRIC ULTRASOUND CLINICAL HISTORY: 9 WEEKS BY | | DATES. CRAMPING. FINDINGS: The pelvic structures are imaged transabdominally and also | | using endovaginal scanning. There is a living intrauterine present with | | documented cardiac activity at 154 beats per minute. By crown-rump measurement of | | 1.6 cm, this would date to 8 weeks 1 day. A normal yolk sac is seen. This would be | | too early for anatomic evaluation, but no perigestational abnormalities or | | hemorrhage are seen. Gestational sac size appears concordant. The right ovary appears | | normal. The left ovary is not visualized. No pelvic free fluid is seen. IMPRESSION: | | 1. LIVING INTRAUTERINE MEASURING TO AN 8-WEEK 1-DAY GESTATIONAL SIZE. NO | | PERIGESTATIONAL ABNORMALITIES ARE SEEN. Dictated Date/Time: 10/13/2011 | | 10:34Transcribed Date/Time: 10/13/2011 13:21Transcriptionist: <Electronically | | Signed by Ryan Acevedo MD> 10/13/111857 | |c is seen. This would be too early for anatomic evaluation, but no perigestational a bnormaliti | |es or hemorrhage are seen. Gestational sac size appears concordant. The right ovary appea rs normal. | | The left ovary is not visualized. No pelvic free fluid is seen. | | | |IMPRESSION: | |1. LIVING INTRAUTERINE MEASURING TO AN 8-WEEK 1-DAY GESTATIONAL SIZE. NO PERIGE STATIONAL | |ABNORMALITIES ARE SEEN. | | | |Dictated Date/Time: 10/13/2011 10:34 | |Transcribed Date/Time: 10/13/2011 13:21 | |Asian Art Curator: | |<Electronically Signed by Ryan Acevedo MD> 10/13/111857 | + + + +---------+ + + | Performing | Address | City/State/Zipcode | Phone Number | | Organization | | | | + +---------+ + + | [place] | | | | | [place] | | | | + +---------+ + + documented in this encounter Visit Diagnoses Not on filedocumented in this encounter"
--- OUTSIDE RECORDS SUMMARY | ~2019-10-25 | XMS | Clinical Summary ---
Demographics + + + | Address | General Delivery | | | [place] [address] | + + + | Home Phone | | + + + | Preferred Language | Unknown | + + + | Marital Status | | + + + | Scientology Affiliation | Unknown | + + + | Race | Unknown | + + + | Ethnic Group | Unknown | + + + Author + + + | Author | [facility] | | | and [place] | + + + | Organization | [facility] | | [...] Team Providers + +------+ + | Care Inspector Metal Fabricating Name | Role | Phone | + +------+ + | No, Physician | PCP | Unavailable | + +------+ + Allergies [...] + +---------+ + | Alcohol Use | Drinks/Week | oz/Week | Comments | + + +---------+ + | No [...] + | Blood Pressure | 101/74 | 01/01/2018 12:44 AM | | | | | PDT | | + + + + + | Pulse | 76 | 01/01/2018 12:44 AM | | | | | PDT | | + + + + + | Temperature | 36.1 C (97 F) | 12/31/2017 9:52 PM | | | | | PDT | | + + + + + | Respiratory Rate | 14 | 01/01/2018 12:44 AM | | | | | PDT | | + + + + + | Oxygen Saturation | 96% | 01/01/2018 12:44 AM | | | | | PDT | | + + + + + | Inhaled Oxygen | - | - | | | Concentration | | | | + + + + + | Weight | 73 kg (160 lb 15 oz) | 12/31/2017 9:52 PM | | | | | PDT | | + + + + + | Height | 167.6 cm (5' 6") | 12/31/2017 9:52 PM | | | | | PDT | | + + + + + | Body Mass Index | 25.98 | 12/31/2017 9:52 PM | | | | | PDT | | + + + + + Plan of Treatment + + + + + | Health Maintenance | Due Date | Last Done | Comments | + + + + + | Vaccine: | | | | | Dtap/Tdap/Td (1 - | 8 | | | | Tdap) | | | | + + + + + | Cervical Cancer | | 10/20/2008 | | | Screening (Pap) | 7 | | | + + + + + | Vaccine: Influenza | | | | | (#1) | 9 | | | + + [...] +---------+--------+ | [employer] | CAREOR | [id number] | | [phone] | | Medica | [...] Delivery | | | al/Fam | | 1985 | [phone] | [place] | | | may | | | 4 (Home) | [address] | + +--------+ +--------+ + + Advance Directives + + + + + | Type | Date Recorded | Patient | Explanation | | | | Medical Affairs Director | | + + + + + | Power of | | | | | Vein Access Technician | | | | + + + + + | Advance | 01/16/2015 12:26 | | | | Directive | PM | | | + + + + +
--- OUTSIDE RECORDS SUMMARY | ~2019-10-25 | XMS | Encounter Summary ---
Demographics + + + | Address | General Delivery | | | [place] [address] | + + + | Home Phone | | + + + | Preferred Language | Unknown | + + + | Marital Status | | + + + | Mormon Affiliation | Unknown | + + + | Race | Unknown | + + + | Ethnic Group | Unknown | + + + Author + + + | Author | [facility] | | | and [place] | + + + | Organization | [facility] | | | [...] Team Providers + +------+ + | Care Physical Education Department Chair Name | Role | Phone | + +------+ + | No, Physician | PCP | Unavailable | + +------+ + Reason for Visit + + + | Reason | Comments | + + + | Suicidal | | + + + Encounter Details +--------+ + + + + | Date | Type | Department | Care Team | Description | +--------+ + + + + | 12/31/ | Emergency | [facility] | 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 | | 2018 - | | MED CTR EMERGENCY | MD Justo [address] | problem (Primary Dx) | | | | CENTER [address] | [facility] | | | 01/01/ | | [place], [place] | [place] [address] | | | 2018 | | [address] | [phone] | | | | | [phone] | | | +--------+ + + + + Social History + + [...] + + + documented in this encounter Discharge Instructions AttachmentsThe following attachments cannot be sent through Care Everywhere.Mental Illness, When a Loved One Has a (Algerian)documented in this encounter Medications at Time of Discharge + + + +---------+--------+ + | Medication | Sig | Dispensed | Refills | Start | End Date | | | | | | Date | | + + + +---------+--------+ + | citalopram | Take 40 mg by mouth | | 0 | | | | (CELEXA) 40 mg | Daily. | | | | | | tablet | | | | | | + + + +---------+--------+ + | | Inhale 1 puff into | | 0 | | | | fluticasone-salmeter | the lungs Twice | | | | | | ol (ADVAIR) 250-50 | Daily. | | | | | | mcg/puff diskus | | | | | | | inhaler | | | | | | + + + +---------+--------+ + | predniSONE | Take by mouth | | 0 | | | | (DELTASONE) 20 mg | Daily. | | | | | | tablet | | | | | | + + + +---------+--------+ + | 27-0.8 mg | Take 1 tablet by | | 0 | | | | multivitamin tablet | mouth Daily. | | | | | + + + +---------+--------+ + documented as of this encounter Plan of Treatment + +------+--------+ + + | Name | Type | Priori | Associated Diagnoses | Date/Time | | | | ty | | | + +------+--------+ + + | ED INFORMATION | KEYUR | Routin | | 12/31/2017 9:43 PM | | EXCHANGE | | e | | PDT | + +------+--------+ + + documented as of this encounter Procedures + +--------+ + + + | Procedure Name | Priori | Date/Time | Associated Diagnosis | Comments | | | ty | | | | + +--------+ + + + | EXTRA BLUE TOP TUBE | Routin | 12/31/2017 | | Results for this | | | e | 10:49 PM | | procedure are in the | | | | PDT | | results section. | + +--------+ + + + | CBC WITH | STAT | 12/31/2017 | | Results for this | | DIFFERENTIAL | | 10:49 PM | | procedure are in the | | | | PDT | | results section. | + +--------+ + + + | , SERUM, | STAT | 12/31/2017 | | Results for this | | QUAL | | 10:49 PM | | procedure are in the | | | | PDT | | results section. | + +--------+ + + + | TSH | STAT | 12/31/2017 | | Results for this | | | | 10:49 PM | | procedure are in the | | | | PDT | | results section. | + +--------+ + + + | ALCOHOL | STAT | 12/31/2017 | | Results for this | | | | 10:49 PM | | procedure are in the | | | | PDT | | results section. | + +--------+ + + + | ACETAMINOPHEN LEVEL | STAT | 12/31/2017 | | Results for this | | | | 10:49 PM | | procedure are in the | | | | PDT | | results section. | + +--------+ + + + | SALICYLATE LEVEL | STAT | 12/31/2017 | | Results for this | | | | 10:49 PM | | procedure are in the | | | | PDT | | results section. | + +--------+ + + + | COMPREHENSIVE | STAT | 12/31/2017 | | Results for this | | METABOLIC PANEL | | 10:49 PM | | procedure are in the | | | | PDT | | results section. | + +--------+ + + + | POCT TEST, | STAT | 12/31/2017 | | Results for this | | URINE, QUAL | | 10:26 PM | | procedure are in the | | | | PDT | | results section. | + +--------+ + + + | URINALYSIS WITH | Routin | 12/31/2017 | | Results for this | | MICROSCOPIC WITH | e | 10:20 PM | | procedure are in the | | CULTURE IF INDICATED | | PDT | | results section. | + +--------+ + + + | DRUGS OF ABUSE, | STAT | 12/31/2017 | | Results for this | | SCREEN, URINE | | 10:20 PM | | procedure are in the | | | | PDT | | results section. | + +--------+ + + + | ED INFORMATION | Routin | 12/31/2017 | | | | EXCHANGE | e | 9:43 PM | | | | | | PDT | | | + +--------+ + + + +---+--------+ | | | | | Proced | | | ure | | | Note - | | | Jorge, | | | Lab In | | | | | | Hlseve | | | n - | | | | | | 2017 | | | 9:44 | | | PM PDT | | | | | | Format | | | ting | | | of | | | this | | | note | | | might | | | be | | | differ | | | ent | | | from | | | the | | | origin | | | al.JORGE | | | E?NOTI | | | FICATI | | | ON?/ | | | | | | 8 | | | 21:39? | | | STRIEF | | | EL, | | | PATITO | | | | | | A?MRN: | | | | | | [id number] | | | [id number] | | | his | | | patien | | | t has | | | regist | | | ered | | | at the | | | | | | Provid | | | ence | | | St. | | | [facility] | Med[facility] | | | l | | | Center | | | | | | Emerge | | | ncy | | | Depart | | | ment | | | For | | | more | | | inform | | | ation | | | visit: | | | | | | https: | | | //secu | | | re.jorge | | | ecarep | | | [email or web address] | | | m/jackson | | | ent/39 | | | [id number] | | | -[id number] | | | [id number] | | | [id number] | | | [id number] | | | [id number] | | | Securi | | | ty | | | Events | | | Date | | | Locati | | | on | | | Type | | | Specif | | | ics | | | 6/24/1 | | | 7 4:28 | | | AM | | | [facility] | | | al Not | | | | | | Specif | | | ied | | | Detail | | | s: PT | | | WAS | | | ADVISE | | | D SHE | | | COULD | | | NOT | | | DRIVE | | | AT | | | DISCHA | | | RGE | | | DUE TO | | | | | | MEDICA | | | TIONS | | | GIVEN. | | | | | | PATIEN | | | T | | | REFUSE | | | D TO | | | LISTEN | | | TO | | | ADVICE | | | . | | | PATIEN | | | T LEFT | | | | | | AGAINS | | | T THIS | | | | | | ADVISE | | | , | | | POLICE | | | WERE | | | CALLED | | | . | | | Securi | | | ty | | | Events | | | (18 | | | Mo.) | | | Count | | | Not | | | Specif | | | ied 1 | | | Total | | | 1 ED | | | Care | | | Guidel | | | inesTh | | | ere | | | are | | | curren | | | tly no | | | ED | | | Care | | | Guidel | | | mariia | | | in | | | KEYUR | | | for | | | this | | | patien | | | t. | | | Please | | | check | | | your | | | facili | | | ty's | | | medica | | | l | | | record | | | s | | | system | | | .Recen | | | t | | | Emerge | | | ncy | | | Depart | | | ment | | | Visit | | | Summar | | | yAdmit | | | Date | | | Facili | | | ty | | | City | | | State | | | Type | | | Major | | | Type | | | Diagno | | | ses or | | | Chief | | | | | | Compla | | | int | | | Mar | | | 14, | | | 2018 | | | Provid | | | ence | | | St. | | | [facility] | | | [place] 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 | | | [place] | | | Emerge | | | ncy | | | Emerge | | | ncy | | | | | | Vagino | | | sis | | | Other | | | | | | chroni | | | c pain | | | | | | Homele | | | ssness | | | | | | Pelvic | | | and | | | perine | | | al | | | pain | | | | | | Acute | | | cystit | | | is | | | withou | | | t | | | hematu | | | simon | | | Feb | | | 23, | | | 2018 | | | Legacy | | | Good | | | [facility] | | | [place] | | | [place] | | [place] | | | Emerge | | | ncy | | | Emerge | | | ncy | | | POST | | | C-SECT | | | ION | | | COMPLI | | | CATION | | | S | | | Urinar | | | y | | | tract | | | infect | | | ion, | | | site | | | not | | | specif | | | ied | | | Other | | | | | | specif | | | ied | | | bacter | | | ial | | | agents | | | as | | | the | | | cause | | | of | | | diseas | | | es | | | classi | | | fied | | | elsewh | | | ere | | | Major | | | | | | depres | | | sive | | | disord | | | er, | | | single | | | | | | episod | | | e, | | | unspec | | | ified | | | | | | Acute | | | vagini | | | tis | | | E.D. | | | Visit | | | Count | | | (12 | | | mo.)Fa | | | cility | | | | | | Visits | | | Low | | | Acuity | | | | | | Legacy | | | Good | | | Samari | | | meyer 2 | | | 0 | | | Provid | | | ence | | | St. | | | [facility] | | | Medica | | | l | | | Center | | | 1 0 | | | [facility] | | [facility] y | | | Hospit | | | al 11 | | | 0 | | | Total | | | 14 0 | | | Note: | | | Visits | | | | | | indica | | | te | | | total | | | known | | | visits | | | . | | | Medica | | | id Low | | | | | | Acuity | | | Dx | | | are | | | the | | | number | | | of | | | primar | | | y | | | diagno | | | ses on | | | the | | | Medica | | | id's | | | Low | | | Acuity | | | dx | | | list. | | | | | | Recent | | | | | | Inpati | | | ent | | | Visit | | | Summar | | | yNo | | | record | | | ed | | | inpati | | | ent | | | visits | | | . PDMP | | | | | | Report | | | PDMP | | | query | | | found | | | no | | | report | | | .[!] | | | Patien | | | t is | | | on | | | Washin | | | gton | | | PRCPro | | | vider | | | PRC | | | Type | | | Phone | | | Servic | | | e | | | Dates | | | | | | [employer] | | | YS | | | INC, | | | CM | | | Lock | | | In | | | (541) | | | [phone] | | | 07 | | | ([phone]) | | | [phone] | | | 28 | | | Curren | | | t If | | | this | | | client | | | is | | | seen | | | in | | | your | | | facili | | | ty, | | | please | | | | | | notify | | | the | | | client | | | 's PCP | | | | | | and/or | | | refer | | | the | | | client | | | back | | | to | | | their | | | PCP | | | for | | | approp | | | riate | | | follow | | | -up | | | and | | | manage | | | ment | | | of | | | care. | | | If you | | | have | | | any | | | questi | | | ons or | | | | | | concer | | | ns | | | about | | | the | | | client | | | or | | | the | | | PRC | | | progra | | | m, | | | please | | | feel | | | free | | | to | | | contac | | | t us | | | at | | | [phone] | | | [phone] | | | [phone] | | | ext. | | | [phone] | | | or go | | | to the | | | PRC | | | websit | | | e at | | | http:/ | | | [email or web address]. | | | [email or web address] | | | a.gov/ | | | PRR/ | | | for | | | more | | | inform | | | ation. | | | | | | Additi | | | onal | | | Care | | | Provid | | | ersPro | | | vider | | | PRC | | | Type | | | Phone | | | Fax | | | Servic | | | e | | | Dates | | | LEGACY | | | | | | [facility] | | | [facility] | | | | | | MEDICA | | | L | | | CENTER | | | | | | Primar | | | y Care | | | | | | [phone]) | | | [phone] | | | 11 | | | Curren | | | t | | | LEGAC[facility] | | | GOOD | | | [facility] | | | [facility] | | | MEDICA | | | L | | | CENTER | | | | | | Primar | | | y Care | | | | | | Curren | | | t | | | FACKEN | | | THALL, | | | EDWARD | | | A. | | | Other | | | [phone]) | | | [phone] | | | 00 | | | May | | | 19, | | | 2012 - | | | | | | Curren | | | t DR | | | RAFAEL | | | PIZANO, | | | MD | | | Specia | | | list | | | [phone] | | | [phone] | | | 35 | | | [phone] | | | [phone] | | | 84 Apr | | | 1, | | | 2017 - | | | | | | Curren | | | t | | | Care | | | Histor | | | yBehav | | | [email or web address] | | | /24/17 | | | 12:00 | | | AM | | | [facility] | | [facility] | | | al6/24 | | | /17 PT | | | | | | REFUSE | | | D TO | | | COMPLY | | | WITH | | | ADVICE | | | TO | | | NOT | | | DRIVE | | | AFTER | | | RECEIV | | | ING | | | NARCOT | | | ICS AT | | | | | | DISCHA | | | RGE | | | FROM | | | ED.? | | | POLICE | | | WERE | | | CALLED | | | .? | | | THIS | | | WAS | | | REPORT | | | ED TO | | | HER | | | PLASTIC CARD GRADER CARDROOM | | | | | | 6/1 | | | 7.?USE | | | | | | CAUTIO | | | N WITH | | | | | | NARCOT | | | ICS | | | UNLESS | | | THIS | | | PATIEN | | | T HAS | | | A SAFE | | | PLAN | | | FOR | | | LEAVIN | | | G AT | | | DISCHA | | | RGE.Me | | | dical/ | | | Surgic | | | al6/27 | | | /17 | | | 12:00 | | | AM | | | [facility] | | [facility] | | | alPATI | | | ENT | | | HAS | | | OUTPAT | | | IENT | | | ORDERS | | | FOR | | | HYPERE | | | MESIS | | | THROUG | | | H DR | | | PIZANO | | | AT ST | | | [facility] | | | Y | | | HOSPIT | | | AL.?5/ | | | 3/17 | | | 12:00 | | | AM | | | [facility] | | [facility] | | | alPT | | | IS | | | BEING | | | TREATE | | | D BY | | | HER | | | PLASTIC CARD GRADER CARDROOM | | | DR | | | RAFAEL | | | PIZANO | | | FOR | | | HYPERE | | | MESIS. | | | ? IF | | | PATIEN | | | T | | | PRESEN | | | TS, | | | CALL | | | DR | | | PIZANO | | | AT ST | | | [facility] | | | Y | | | WOMEN' | | | S | | | CLINIC | | | AT | | | [phone] | | | [phone] | | | .Crite | | | simon | | | met | | | PRCKno | | | wn | | | Aliase | | | sNo | | | known | | | aliase | | | s. The | | | above | | | | | | inform | | | ation | | | is | | | provid | | | ed for | | | the | | | sole | | | purpos | | | e of | | | patien | | | t | | | treatm | | | ent. | | | Use of | | | this | | | inform | | | ation | | | beyond | | | the | | | terms | | | of | | | Data | | | Sharin | | | g | | | Memora | | | ndum | | | of | | | Unders | | | tandin | | | g and | | | Licens | | | e | | | Agreem | | | ent is | | | | | | prohib | | | ited. | | | In | | | certai | | | n | | | cases | | | not | | | all | | | visits | | | may | | | be | | | repres | | | ented. | | | | | | Consul | | | t the | | | aforem | | | ention | | | ed | | | facili | | | ties | | | for | | | additi | | | onal | | | inform | | | ation. | | | ? | | | 2018 | | | Colle[employer] | | | tive | | | Medica | | | l | | | Techn[employer] | | | logies | | | , Inc[employer] | | | - | | | [place] | | | [place] | | | [place], | | | [place] - | | | info@c | | | ollect | | | ivemed | | | icalte | | | [email or web address] | | | | +---+--------+ documented in this encounter Results Extra Blue Top Tube (12/31/2017 10:49 PM PDT) + +-------+ + + + | Component | Value | Ref Range | Performed | Pathologist | | | | | At | Signature | + +-------+ + + + | Extra Blue | Done | | [facility] | | | Top Tube | | | [facility] | | | | | | MEDICAL | | | | | | CENTER - | | | | | | LABORATORY | | + +-------+ + + + + + | Specimen | + + | Blood | + + + + + + + | Performing | Address | City/State/Zipcode | Phone Number | | Organization | | | | + + + + + | [facility] | [address] | [place] | [phone] | | [facility] | | [address] | | | - LABORATORY | | | | + + + + + , Serum, Qual (12/31/2017 10:49 PM PDT) + + + + + + | Component | Value | Ref Range | Performed | Pathologist | | | | | At | Signature | + + + + + + | hCG Screen, | Negative | Negative | [facility] | | | Serum | | | [facility] | | | | | | MEDICAL | | | | | | CENTER - | | | | | | LABORATORY | | + + + + + + + + | Specimen | + + | Blood | + + + + + + + | Performing | Address | City/State/Zipcode | Phone Number | | Organization | | | | + + + + + | [facility] | [address] | [place] | [phone] | | [facility] | | [address] | | | - LABORATORY | | | | + + + + + TSH (12/31/2017 10:49 PM PDT) + + + + + + | Component | Value | Ref Range | Performed | Pathologist | | | | | At | Signature | + + + + + + | TSH | 1.24Comment: This is a | 0.45 - 5.33 | [facility] | | | | third generation TSH | uIU/mL | [facility] | | | | test. | | MEDICAL | | | | | | CENTER - | | | | | | LABORATORY | | + + + + + + + + | Specimen | + + | Blood | + + + + + + + | Performing | Address | City/State/Zipcode | Phone Number | | Organization | | | | + + + + + | [facility] | [address] | [place] | [phone] | | [facility] | | [address] | | | - LABORATORY | | | | + + + + + Ethanol (12/31/2017 10:49 PM PDT) + +-------+ + + + | Component | Value | Ref Range | Performed | Pathologist | | | | | At | Signature | + +-------+ + + + | ALCOHOL, | <5 | <400 mg/dL | [facility] | | | SERUM/PLASM | | | [facility] | | | A | | | MEDICAL | | | | | | CENTER - | | | | | | LABORATORY | | + +-------+ + + + + + | Specimen | + + | Blood | + + + + + + + | Performing | Address | City/State/Zipcode | Phone Number | | Organization | | | | + + + + + | [facility] | [address] | [place] | [phone] | | [facility] | | [address] | | | - LABORATORY | | | | + + + + + Salicylate Level (12/31/2017 10:49 PM PDT) + +-------+ + + + | Component | Value | Ref Range | Performed | Pathologist | | | | | At | Signature | + +-------+ + + + | Salicylate | <4.0 | <30.0 mg/dL | [facility] | | | Level | | | [facility] | | | | | | MEDICAL | | | | | | CENTER - | | | | | | LABORATORY | | + +-------+ + + + + + | Specimen | + + | Blood | + + + + + + + | Performing | Address | City/State/Zipcode | Phone Number | | Organization | | | | + + + + + | [facility] | [address] | [place] | [phone] | | [facility] | | [address] | | | - LABORATORY | | | | + + + + + Acetaminophen Level (12/31/2017 10:49 PM PDT) + +-------+ + + + | Component | Value | Ref Range | Performed | Pathologist | | | | | At | Signature | + +-------+ + + + | Acetaminoph | <10 | <10 ug/mL | [facility] | | | en Level | | | [facility] | | | | | | MEDICAL | | | | | | CENTER - | | | | | | LABORATORY | | + +-------+ + + + + + | Specimen | + + | Blood | + + + + + + + | Performing | Address | City/State/Zipcode | Phone Number | | Organization | | | | + + + + + | [facility] | [address] | [place] | [phone] | | [facility] | | [address] | | | - LABORATORY | | | | + + + + + Comprehensive Metabolic Panel (12/31/2017 10:49 PM PDT) + + + + + + | Component | Value | Ref Range | Performed | Pathologist | | | | | At | Signature | + + + + + + | Na | 138 | 136 - 149 | [facility] | | | | | mmol/L | [facility] | | | | | | MEDICAL | | | | | | CENTER - | | | | | | LABORATORY | | + + + + + + | K | 3.4 (L) | 3.5 - 5.1 | [facility] | | | | | mmol/L | [facility] | | | | | | MEDICAL | | | | | | CENTER - | | | | | | LABORATORY | | + + + + + + | Cl | 104 | 98 - 109 mmol/L | [facility] | | | | | | [facility] | | | | | | MEDICAL | | | | | | CENTER - | | | | | | LABORATORY | | + + + + + + | CO2 | 27 | 24 - 31 mmol/L | [facility] | | | | | | [facility] | | | | | | MEDICAL | | | | | | CENTER - | | | | | | LABORATORY | | + + + + + + | Anion Gap | 7 | 3 - 16 mmol/L | [facility] | | | | | | [facility] | | | | | | MEDICAL | | | | | | CENTER - | | | | | | LABORATORY | | + + + + + + | Glucose | 106 | 70 - 109 mg/dL | [facility] | | | | | | [facility] | | | | | | MEDICAL | | | | | | CENTER - | | | | | | LABORATORY | | + + + + + + | BUN | 11 | 7 - 18 mg/dL | [facility] | | | | | | [facility] | | | | | | MEDICAL | | | | | | CENTER - | | | | | | LABORATORY | | + + + + + + | Creatinine | 0.88 | 0.60 - 1.30 | [facility] | | | | | mg/dL | [facility] | | | | | | MEDICAL | | | | | | CENTER - | | | | | | LABORATORY | | + + + + + + | eGFR if not | >60Comment: GLOMERULAR | >=60 | [facility] | | | | FILTRATION | mL/min/1.73m2 | [facility] | | | [place] | RATE,ESTIMATED | | MEDICAL | | | | mL/min/1.38y9Ocrg than | | CENTER - | | | | 60 Chronic kidney | | LABORATORY | | | | disease,if found over a | | | | | | 3-month period.Less than | | | | | | 15 Kidney failureFor | | | | | | | | | | | | Americans,multiply the | | | | | | calculated GFR by 1.21. | | | | | | | | | | + + + + + + | Calcium | 9.1 | 8.3 - 10.5 | [facility] | | | | | mg/dL | [facility] | | | | | | MEDICAL | | | | | | CENTER - | | | | | | LABORATORY | | + + + + + + | Albumin | 3.5 | 3.2 - 5.0 g/dL | [facility] | | | | | | [facility] | | | | | | MEDICAL | | | | | | CENTER - | | | | | | LABORATORY | | + + + + + + | Bilirubin | 0.3Comment: This is an | 0.1 - 1.5 mg/dL | [facility] | | | Total | appended report. These | | [facility] | | | | results have been | | MEDICAL | | | | appended to a previously | | CENTER - | | | | preliminary verified | | LABORATORY | | | | report. | | | | + + + + + + | Total | 6.2 | 6.0 - 7.8 g/dL | [facility] | | | Protein | | | [facility] | | | | | | MEDICAL | | | | | | CENTER - | | | | | | LABORATORY | | + + + + + + | AST | 16Comment: This is an | 10 - 42 U/L | [facility] | | | | appended report. These | | [facility] | | | | results have been | | MEDICAL | | | | appended to a previously | | CENTER - | | | | preliminary verified | | LABORATORY | | | | report. | | | | + + + + + + | ALT | 14Comment: This is an | 6 - 45 U/L | [facility] | | | | appended report. These | | [facility] | | | | results have been | | MEDICAL | | | | appended to a previously | | CENTER - | | | | preliminary verified | | LABORATORY | | | | report. | | | | + + + + + + | Alkaline | 50Comment: This is an | 40 - 110 U/L | [facility] | | | Phosphatase | appended report. These | | [facility] | | | | results have been | | MEDICAL | | | | appended to a previously | | CENTER - | | | | preliminary verified | | LABORATORY | | | | report. | | | | + + + + + + | Globulin | 2.7 | 2.1 - 3.8 g/dL | [facility] | | | | | | [facility] | | | | | | MEDICAL | | | | | | CENTER - | | | | | | LABORATORY | | + + + + + + | Albumin/Cherry | 1.3 | 0.8 - 2.0 | [facility] | | | bulin Ratio | | | [facility] | | | | | | [facility] | | | | | | [facility] - | | | | | | LABORATORY | | + + + + + + | BUN/Creatin | 12.5 | | [facility] | | | ine Ratio | | | [facility] | | [facility] | [facility] | | | | | | [facility] - | | | | | | LABORATORY | | + + + + + + + + | Specimen | + + | Blood | + + + + + + + | Performing | Address | City/State/Zipcode | Phone Number | | Organization | | | | + + + + + | [facility] | [address] | [place] | [phone] | | [facility] | | [address] | | | - LABORATORY | | | | + + + + + CBC with Differential (12/31/2017 10:49 PM PDT) + + + + + + | Component | Value | Ref Range | Performed | Pathologist | | | | | At | Signature | + + + + + + | WBC | 13.6 (H) | 4.0 - 11.0 K/uL | [facility] | | | | | | [facility] | | [facility] | [facility] | | | | | | [facility] - | | | | | | LABORATORY | | + + + + + + | RBC | 4.02 | 3.70 - 5.20 | [facility] | | | | | M/uL | [facility] | | | | | | [facility] | | | | | | [facility]ENTER - | | | | | | LABORATORY | | + + + + + + | Hemoglobin | 9.8 (L) | 11.5 - 16.0 | [facility] | | | | | g/dL | [facility] | | | | | | [facility] | | | | | | CENTER - | | | | | | LABORATORY | | + + + + + + | Hematocrit | 31.8 (L) | 34.0 - 47.0 % | [facility] | | | | | | [facility] | | | | | | [facility] | | | | | | [facility] - | | | | | | LABORATORY | | + + + + + + | MCV | 79.1 (L) | 83.0 - 101.0 fL | [facility] | | | | | | [facility] | | | | | | [facility] | | | | | | [facility] - | | | | | | LABORATORY | | + + + + + + | MCH | 24.4 (L) | 28.0 - 35.0 pg | [facility] | | | | | | [facility] | | | | | | [facility] | | | | | | [facility]ENTER - | | | | | | LABORATORY | | + + + + + + | MCHC | 30.9 (L) | 32.0 - 36.0 | [facility] | | | | | g/dL | [facility] | | | | | | [facility] | | | | | | [facility] - | | | | | | LABORATORY | | + + + + + + | RDW-CV | 18.5 (H) | <15.0 % | [facility] | | | | | | [facility] | | | | | | [facility] | | | | | | [facility] - | | | | | | LABORATORY | | + + + + + + | Platelet | 318 | 140 - 440 K/uL | [facility] | | | Count | | | [facility] | | | | | | [facility] | | | | | | [facility] - | | | | | | LABORATORY | | + + + + + + | MPV | 8.3 | fL | [facility] | | | | | | [facility] | | | | | | [facility] | | | | | | [facility] - | | | | | | LABORATORY | | + + + + + + | % | 57.7 | 45.0 - 82.0 % | [facility] | | | Neutrophils | | | [facility] | | | | | | [facility] | | | | | | CENTER - | | | | | | LABORATORY | | + + + + + + | % | 32.2 | 20.0 - 45.0 % | [facility] | | | Lymphocytes | | | [facility] | | | | | | [facility] | | | | | | CENTER - | | | | | | LABORATORY | | + + + + + + | % Monocytes | 6.7 | 4.0 - 12.0 % | [facility] | | | | | | [facility] | | | | | | [facility] | | | | | | [facility] - | | | | | | LABORATORY | | + + + + + + | % | 2.2 | 0.0 - 5.0 % | [facility] | | | Eosinophils | | | [facility] | | | | | | [facility] | | | | | | CENTER - | | | | | | LABORATORY | | + + + + + + | % Basophils | 1.2 (H) | 0.0 - 1.0 % | [facility] | | | | | | [facility] | | | | | | [facility] | | | | | | [facility]ENTER - | | | | | | LABORATORY | | + + + + + + | Absolute | 7.80 | 1.80 - 8.50 | [facility] | | | Neutrophils | | K/uL | [facility] | | | | | | MEDICAL | | | | | | CENTER - | | | | | | LABORATORY | | + + + + + + | Absolute | 4.40 (H) | 0.60 - 3.20 | [facility] | | | Lymphocytes | | K/uL | [facility] | | | | | | MEDICAL | | | | | | CENTER - | | | | | | LABORATORY | | + + + + + + | Absolute | 0.90 | 0.00 - 1.00 | [facility] | | | Monocytes | | K/uL | [facility] | | | | | | MEDICAL | | | | | | CENTER - | | | | | | LABORATORY | | + + + + + + | Absolute | 0.30 | 0.00 - 0.40 | [facility] | | | Eosinophils | | K/uL | [facility] | | | | | | MEDICAL | | | | | | CENTER - | | | | | | LABORATORY | | + + + + + + | Absolute | 0.20 (H) | 0.00 - 0.10 | [facility] | | | Basophils | | K/uL | [facility] | | | | | | MEDICAL | | | | | | CENTER - | | | | | | LABORATORY | | + + + + + + + + | Specimen | + + | Blood | + + + + + + + | Performing | Address | City/State/Zipcode | Phone Number | | Organization | | | | + + + + + | [facility] | [address] | [place] | [phone] | | [facility] | | [address] | | | - LABORATORY | | | | + + + + + POCT Test, Urine, QUAL (12/31/2017 10:26 PM PDT) + + + + + + | Component | Value | Ref Range | Performed | Pathologist | | | | | At | Signature | + + + + + + | | Negative | Negative | | | | Test, | | | | | | Urine, POC | | | | | + + + + + + | Internal QC | Acceptable | Acceptable | | | + + + + + + | Specific | | 1.010, 1.015, | | | | [place], | | 1.020, 1.025 | | | | POC | | | | | + + + + + + | Lot Number | [id number] | | | | + + + + + + | Expiration | 2019-02-04 | | | | | Date | | | | | + + + + + + + + | Specimen | + + | Urine | + + Drugs of Abuse, Screen, Urine (12/31/2017 10:20 PM PDT) + + + + + + | Component | Value | Ref Range | Performed | Pathologist | | | | | At | Signature | + + + + + + | Amphetamine | Negative | Negative | [facility] | | | Screen, | | | [facility] | | | Urine | | | MEDICAL | | | | | | CENTER - | | | | | | LABORATORY | | + + + + + + | Barbiturate | Negative | Negative | [facility] | | | s Screen, | | | [facility] | | | Urine | | | MEDICAL | | | | | | CENTER - | | | | | | LABORATORY | | + + + + + + | Benzodiazep | Negative | Negative | [facility] | | | mariia | | | [facility] | | | Screen, | | | MEDICAL | | | Urine | | | CENTER - | | | | | | LABORATORY | | + + + + + + | Cannabinoid | Positive (A) | Negative | [facility] | | | s Screen, | | | [facility] | | | Urine | | | MEDICAL | | | | | | CENTER - | | | | | | LABORATORY | | + + + + + + | Cocaine | Negative | Negative | [facility] | | | Screen, | | | [facility] | | | Urine | | | MEDICAL | | | | | | CENTER - | | | | | | LABORATORY | | + + + + + + | Methadone | Negative | Negative | [facility] | | | Screen, | | | [facility] | | | Urine | | | MEDICAL | | | | | | CENTER - | | | | | | LABORATORY | | + + + + + + | Opiates | Negative | Negative | [facility] | | | Screen, | | | [facility] | | | Urine | | | MEDICAL | | | | | | CENTER - | | | | | | LABORATORY | | + + + + + + + + | Specimen | + + | Urine | + + + + + + + | Performing | Address | City/State/Zipcode | Phone Number | | Organization | | | | + + + + + | [facility] | [address] | [place], [place] | [phone] | | [facility] | | [address] | | | - LABORATORY | | | | + + + + + Urinalysis with Microscopic with Culture if Indicated (12/31/2017 10:20 PM PDT) + + + + + + | Component | Value | Ref Range | Performed | Pathologist | | | | | At | Signature | + + + + + + | Color | Yellow | Light Yellow, | [facility] | | | | | Yellow, Straw | [facility] | | | | | | MEDICAL | | | | | | CENTER - | | | | | | LABORATORY | | + + + + + + | Clarity | Clear | Clear | [facility] | | | | | | [facility] | | | | | | MEDICAL | | | | | | CENTER - | | | | | | LABORATORY | | + + + + + + | pH, Urine | 5.0 | 5.0 - 8.0 | [facility] | | | | | | [facility] | | | | | | MEDICAL | | | | | | CENTER - | | | | | | LABORATORY | | + + + + + + | Specific | 1.016 | 1.001 - 1.030 | [facility] | | | [place] | | | [facility] | | | | | | MEDICAL | | | | | | CENTER - | | | | | | LABORATORY | | + + + + + + | Protein, | Negative | Negative | [facility] | | | Urine | | | [facility] | | | | | | MEDICAL | | | | | | CENTER - | | | | | | LABORATORY | | + + + + + + | Blood, | Small (A) | Negative | [facility] | | | Urine | | | [facility] | | | | | | MEDICAL | | | | | | CENTER - | | | | | | LABORATORY | | + + + + + + | Glucose, | Negative | Negative | [facility] | | | Urine | | | [facility] | | | | | | MEDICAL | | | | | | CENTER - | | | | | | LABORATORY | | + + + + + + | Ketones, | Negative | Negative | [facility] | | | Urine | | | [facility] | | | | | | MEDICAL | | | | | | CENTER - | | | | | | LABORATORY | | + + + + + + | Bilirubin, | Negative | Negative | [facility] | | | Urine | | | [facility] | | | | | | MEDICAL | | | | | | CENTER - | | | | | | LABORATORY | | + + + + + + | Nitrite, | Negative | Negative | [facility] | | | Urine | | | [facility] | | | | | | MEDICAL | | | | | | CENTER - | | | | | | LABORATORY | | + + + + + + | Leukocyte | Negative | Negative | [facility] | | | Esterase, | | | [facility] | | | Urine | | | MEDICAL | | | | | | CENTER - | | | | | | LABORATORY | | + + + + + + | Urobilinoge | Negative | 0.2 mg/dL, 1.0 | [facility] | | | n, Urine | | mg/dL, Negative | [facility] | | | | | | MEDICAL | | | | | | CENTER - | | | | | | LABORATORY | | + + + + + + | WBC UA | 2-5 (A) | 0 - 2 /HPF | [facility] | | | | | | [facility] | | | | | | MEDICAL | | | | | | CENTER - | | | | | | LABORATORY | | + + + + + + | RBC UA | 0-2 | 0 - 2 /HPF | [facility] | | | | | | [facility] | | | | | | MEDICAL | | | | | | CENTER - | | | | | | LABORATORY | | + + + + + + | SQUAMOUS | 50-100 (A) | 0 - 2 /LPF | [facility] | | | EPITHELIAL | | | [facility] | | | UA | | | MEDICAL | | | | | | CENTER - | | | | | | LABORATORY | | + + + + + + | BACTERIA UA | 1+ (A) | Negative /HPF | [facility] | | | | | | [facility] | | | | | | MEDICAL | | | | | | CENTER - | | | | | | LABORATORY | | + + + + + + | MUCUS UA | Present (A) | Negative /LPF | [facility] | | | | | | [facility] | | | | | | MEDICAL | | | | | | CENTER - | | | | | | LABORATORY | | + + + + + + | URINE | Urine Culture Not | | [facility] | | | COMMENT | Indicated | | [facility] | | | | | | MEDICAL | | | | | | CENTER - | | | | | | LABORATORY | | + + + + + + + + | Specimen | + + | Urine | + + + + + + + | Performing | Address | City/State/Zipcode | Phone Number | | Organization | | | | + + + + + | [facility] | [address] | [place], [place] | [phone] | | [facility] | | [address] | | | - LABORATORY | | | | + + + + + documented in this encounter Visit Diagnoses + + | Diagnosis | + + | Mental health problem - Primary Unspecified mental or behavioral problem | + + documented in this encounter Administered Medications + + + +------+------+------+ | Medication Order | MAR | Action | Dose | Rate | Site | | | Action | Date | | | | + + + +------+------+------+ | LORazepam (ATIVAN) 1 mg tablet | Dispense | 01/02/20 | 1 mg | | | | (ER Prepack) 1 mg 1 mg, Oral, | to Home | 18 12:41 | | | | | EVERY 8 HOURS PRN, Anxiety, | | AM PDT | | | | | Starting Татьяна 01/01/18 at 0022 | | | | | | + + + +------+------+------+ +---+---+ | | | +---+---+ documented in this encounter
--- OUTSIDE RECORDS SUMMARY | ~2019-10-25 | XMS | Encounter Summary ---
Demographics + + + | Address | General Delivery | | | [place] [address] | + + + | Home Phone | | + + + | Preferred Language | Unknown | + + + | Marital Status | | + + + | Christian Affiliation | Unknown | + + + | Race | Unknown | + + + | Ethnic Group | Unknown | + + + Author + + + | Author | [facility] | | | and [place] | + + + | Organization | [facility] | | | and [...] Team Providers + +------+ + | Care Center Rep Name | Role | Phone | + +------+ + PCP | Unavailable | + +------+ + Encounter Details +--------+ + + + + | Date | Type | Department | Care Team | Description | +--------+ + + + + | 10/24/ | Hospital | [facility] | | | | 2003 | Encounter | MED CTR XRAY [address] | | | | | | [place] | | | | | | [place] [address] | | | | | | [phone] | | | +--------+ + + + [...]
--- OUTSIDE RECORDS SUMMARY | ~2019-10-25 | XMS | Encounter Summary ---
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 | | | [place] | | | y | | | [...] | | | ext. | | | [id number] | | | or go | | [...] | | | [place] | | | [place] | | | | | | MEDICA [...] | | | St. | | | [place] | | | y | | | [...] | | | HER | | | CONSOLE ATTENDANT | | | | | | 6/1 [...] | | | St. | | | [place] | | | y | | | [...] | | | St. | | | [place] | | | y | | | Hospit | | | alPT | | | IS | | | BEING | | | TREATE | | | D BY | | | HER | | | CONSOLE ATTENDANT | | | DR | | | [...] [address] | [place] | [phone] | | [facility] | | [address] | | | - LABORATORY | | [...] + | [facility] | [address] | [place] | [phone] | | [facility] | | [address] | | | - LABORATORY | | [...] + | [facility] | [address] | [place] | [phone] | | [facility] | | [address] | | | - LABORATORY | | [...] [address] | [place] | [phone] | | [facility] | | [address] | | | - LABORATORY | | [...] + | [facility] | [address] | [place] | [phone] | | [facility] | | [address] | | | - LABORATORY | | [...] + | [facility] | [address] | [place] | [phone] | | [facility] | | [address] | | | - LABORATORY | | [...] mL/min/1.73m2 | [facility] | | | [facility] | RATE,ESTIMATED | | MEDICAL | | | | mL/min/1.20f9Yaqy than | | CENTER - | | [...] + | [facility] | [address] | [place] | [phone] | | [facility] | | [address] | | | - LABORATORY | | [...] [facility] | [address] | [place] | [phone] | | [facility] | | [address] | | | - LABORATORY | | [...] | 1.010, 1.015, | | | | [place], | | 1.020, 1.025 | | | | POC | | | | | + + + + + + | Lot Number | [id number] | | | | + + + [...] ST. | [address] | [place], [place] | [phone] | | [facility] | | [address] | | | - LABORATORY | | [...] - 1.030 | [facility] | | | [place] | | | [facility] | | [...] ST. | [address] | [place], [place] | [phone] | | [facility] | | [address] | | | - LABORATORY | | [...]
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
--- OUTSIDE RECORDS SUMMARY | ~2019-10-25 | XMS | Encounter Summary ---
Demographics + + + | Address | General Delivery | | | [place] [address] | + + + | Home Phone | | + + + | Preferred Language | Unknown | + + + | Marital Status | | + + + | Mosque Affiliation | Unknown | + + + | Race | Unknown | + + + | Ethnic Group | Unknown | + + + Author + + + | Author | [facility] | | | and [place] | + + + | Organization | [facility] | | [...] Team Providers + +------+ + | Care Substation Wireman Name | Role | Phone | + +------+ + PCP | Unavailable | + +------+ + Encounter Details +--------+ + + + + | Date | Type | Department | Care Team | Description | +--------+ + + + + | 10/24/ | Hospital | [facility] | [place], | | | 2009 | Encounter | MED CTR LABORATORY | DO [address] | | | | | [address] [place] | [place] | | | | | [place] | [id number] | | | | | [address] | | | | | | [phone] | | | +--------+ + + + [...]
--- OUTSIDE RECORDS SUMMARY | ~2019-10-25 | XMS | Encounter Summary ---
Demographics + + + | Address | General Delivery | | | [place] [address] | + + + | Home Phone | | + + + | Preferred Language | Unknown | + + + | Marital Status | | + + + | Zoroastrian Affiliation | Unknown | + + + [...] Team Providers + +------+ + | Care Unix Systems Administrator Name | Role | Phone | + +------+ + PCP | Unavailable | + +------+ + Encounter Details +--------+ + + + + | Date | Type | Department | Care Team | Description | +--------+ + + + + | 05/11/ | [facility] | [facility] | Paul Mora MD | | | 2008 | Encounter | MED CTR XRAY [address] | [address] | | | | | [place] | [place] | | | | | [place] [address] | [address] | | | | | [phone] | | | +--------+ + + + [...]
--- OUTSIDE RECORDS SUMMARY | ~2019-10-25 | XMS | Encounter Summary ---
Demographics + + + | Address | General Delivery | | | [place] [address] | + + + | Home Phone | | + + + | Preferred Language | Unknown | + + + | Marital Status | | + + + | Zoroastrian Affiliation | Unknown | + + + | Race | Unknown | + + + | Ethnic Group | Unknown | + + + Author + + + | Author | [facility] | | | and [place] | + + + | Organization | [facility] | | | [...] Providers + +------+ + | Care Chief Building Inspector Name | Role | Phone | + +------+ + PCP | Unavailable | + +------+ + Encounter Details +--------+ + + + + | Date | Type | Department | Care Team | Description | +--------+ + + + + | 05/10/ | Hospital | [facility] | Sunny Alvarado | | | 2005 | Encounter | MED CTR EMERGENCY | MD Jos[address] | | | | | CENTER [address] | [facility] | | | | | [place] | [place] [address] | | | | | [address] | [phone] | | | | | [phone] | | | +--------+ + + + [...]
--- OUTSIDE RECORDS SUMMARY | ~2019-10-25 | XMS | Encounter Summary ---
Demographics + + + | Address | General Delivery | | | [place] [address] | + + + | Home Phone | | + + + | Preferred Language | Unknown | + + + | Marital Status | | + + + | Latter Day Affiliation | Unknown | + + + | Race | Unknown | + + + | Ethnic Group | Unknown | + + + Author + + + | Author | [facility] | | | and [place] | + + + | Organization | [facility] [...] Team Providers + +------+ + | Care Sign Writer Letterer Or Painter Name | Role | Phone | + +------+ + | No, Physician | PCP | Unavailable | + +------+ + Reason for Visit + + + | Reason | Comments | + + + | Gynecology Problem | | + + + Encounter Details +--------+ + + + + | Date | Type | Department | Care Team | Description | +--------+ + + + + | 01/16/ | Emergency | [facility] | Dank, | IUD complication, | | 2015 | | MED CTR EMERGENCY | Justo Ariza MD [address] | initial encounter | | | | CENTER [address] | [address] [place] | ([facility]) (Primary Dx) | | | | [place], [place] | [place] [address] | | | | | [address] | [phone] | | | | | [phone] | | | +--------+ + + + [...] + + + | Blood Pressure | 108/66 | 01/16/2015 12:22 PM | | | | | PDT | | + + + + + | Pulse | 86 | 01/16/2015 12:22 PM | | | | | PDT | | + + + + + | Temperature | 36.3 C (97.3 F) | 01/16/2015 11:38 AM | | | | | PDT | | + + + + + | Respiratory Rate | 16 | 01/16/2015 12:22 PM | | | | | PDT | | + + + + + | Oxygen Saturation | 96% | 01/16/2015 12:22 PM | | | | | PDT | | + + + + + | Inhaled Oxygen | - | - | | | Concentration | | | | + + + + + | Weight | 83 kg (183 lb) | 01/16/2015 11:38 AM | | | | | PDT | | + + + + + | Height | 167.6 cm (5' 5.98") | 01/16/2015 11:38 AM | | | | | PDT | | + + + + + | Body Mass Index | 29.55 | 01/16/2015 11:38 AM | | | | | PDT | | + + + + + documented in this encounter Discharge Instructions Instructions Justo Weems MD - 01/16/2015Dr. Sultana's office will be in contact wi javier to schedule removal of this IUD documented in this encounter Plan of Treatment Not on filedocumented as of this encounter Visit Diagnoses + + | Diagnosis | + + | IUD complication, initial encounter - Primary | + + documented in this encounter
--- OUTSIDE RECORDS SUMMARY | ~2019-10-25 | XMS | Encounter Summary ---
Demographics + + + | Address | General Delivery | | | [place] [address] | + + + | Home Phone | | + + + | Preferred Language | Unknown | + + + | Marital Status | | + + + | Adventism Affiliation | Unknown | + + + | Race | Unknown | + + + | Ethnic Group | Unknown | + + + Author + + + | Author | [facility] | | | and [place] | + + + | Organization | [facility] | | | [...] Team Providers + +------+ + | Care Addiction Counselor Name | Role | Phone | + +------+ + PCP | Unavailable | + +------+ + Encounter Details +--------+ + + + + | Date | Type | Department | Care Team | Description | +--------+ + + + + | 09/21/ | Hospital | [facility] | [place], | | | 2008 | Encounter | MED CTR LABORATORY | DO [address] | | | | | [address] [place] | [place] | | | | | [place] | [address] | | | | | [address] | | | | | | [phone] | | | +--------+ + + + [...]
--- OUTSIDE RECORDS SUMMARY | ~2019-10-25 | XMS | Encounter Summary ---
Demographics + + + | Address | General Delivery | | | [place] [address] | + + + | Home Phone | | + + + | Preferred Language | Unknown | + + + | Marital Status | | + + + | Latter-Day Affiliation | Unknown | + + + | Race | Unknown | + + + | Ethnic Group | Unknown | + + + Author + + + | Author | [facility] | | | and [place] | + + + | Organization | [facility] | | [...] Team Providers + +------+ + | Care Operations Liaison Name | Role | Phone | + +------+ + PCP | Unavailable | + +------+ + Encounter Details +--------+ + + + + | Date | Type | Department | Care Team | Description | +--------+ + + + + | 05/05/ | Hospital | [facility] | | | | 1991 | Encounter | MED CTR XRAY [address] | | | | | | [place] | | | | | | [place] [address] | | | | | | [phone] | | | +--------+ + + + [...]
--- OUTSIDE RECORDS SUMMARY | ~2019-10-25 | XMS | Encounter Summary ---
Demographics + + + | Address | General Delivery | | | [place] [address] | + + + | Home Phone | | + + + | Preferred Language | Unknown | + + + | Marital Status | | + + + | Latter Day Affiliation | Unknown | + + + | Race | Unknown | + + + | Ethnic Group | Unknown | + + + Author + + + | Author | [facility] | | | and [place] | + + + | Organization | [facility] | | | and [...] Team Providers + +------+ + | Care Iso Coordinator Name | Role | Phone | + +------+ + PCP | Unavailable | + +------+ + Encounter Details +--------+ + + + + | Date | Type | Department | Care Team | Description | +--------+ + + + + | 10/06/ | [facility] | [facility] | | | | 2005 | Encounter | MED CTR XRAY [address] | | | | | | [place] | | | | | | [place] [address] | | | | | | [phone] | | | +--------+ + + + [...]
--- OUTSIDE RECORDS SUMMARY | ~2019-10-25 | XMS | Encounter Summary ---
Demographics + + + | Address | General Delivery | | | [place] [address] | + + + | Home Phone | | + + + | Preferred Language | Unknown | + + + | Marital Status | | + + + | Taoism Affiliation | Unknown | + + + | Race | Unknown | + + + | Ethnic Group | Unknown | + + + Author + + + | Author | [facility] | | | and [place] | + + + | Organization | [facility] | | | [...] Team Providers + +------+ + | Care Polysomnographer Name | Role | Phone | + +------+ + PCP | Unavailable | + +------+ + Encounter Details +--------+ + + + + | Date | Type | Department | Care Team | Description | +--------+ + + + + | 05/10/ | Hospital | [facility] | [facility] | | | 2005 | Encounter | MED CTR EMERGENCY | MD Josue [address] | | | | | CENTER [address] | [facility] | | | | | [place] | [place] [address] | | | | | [address] | [phone] | | | | | [phone] | | | +--------+ + + + [...]
--- OUTSIDE RECORDS SUMMARY | ~2019-10-25 | XMS | Encounter Summary ---
Demographics + + + | Address | General Delivery | | | [place] [address] | + + + | Home Phone | | + + + | Preferred Language | Unknown | + + + | Marital Status | | + + + | Jehovah'S Witness Affiliation | Unknown | + + + | Race | Unknown | + + + | Ethnic Group | Unknown | + + + Author + + + | Author | [facility] | | | and [place] | + + + | Organization | [facility] | | | [...] Team Providers + +------+ + | Care Consulting Sales Executive Name | Role | Phone | + +------+ + PCP | Unavailable | + +------+ + Encounter Details +--------+ + + + + | Date | Type | Department | Care Team | Description | +--------+ + + + + | 02/18/ | Hospital | [facility] | Sanjeev [place], | | | 2010 | Encounter | MED CTR EMERGENCY | [address] | | | | | CENTER [address] | [place] | | | | | [place] | [address] | | | | | [address] | | | | | | [phone] | | | +--------+ + + + [...] | HCG, SERUM, QUANT | Routin | 02/18/2011 | | Results for this | | | e | 3:27 PM | | procedure are in the | | | | PDT | | results section. | + +--------+ + + + | COMPREHENSIVE | Routin | 02/18/2011 | | Results for this | | METABOLIC PANEL | e | 3:27 PM | | procedure are in the | | | | PDT | | results section. | + +--------+ + + + | US OB TRANSVAGINAL | | 02/18/2011 | | Results for this | | | | 1:08 PM | | procedure are in the | | | | PDT | | results section. | + +--------+ + + + | US OB < 14 WEEKS | | 02/18/2011 | | Results for this | | SINGLE OR FIRST | | 1:08 PM | | procedure are in the | | GESTATION | | PDT | | results section. | + +--------+ + + + documented in this encounter Results Comprehensive Metabolic Panel (02/18/2011 3:27 PM PDT) + + + + + + | Component | Value | Ref Range | Performed | Pathologist | | | | | At | Signature | + + + + + + | Glucose | 79 | 70 - 109 mg/dL | [facility] | | | | | | [facility] | | | | | | MEDICAL | | | | | | CENTER - | | | | | | LABORATORY | | + + + + + + | Calcium | 9.6 | 8.3 - 10.5 | [facility] | | | | | mg/dL | [facility] | | | | | | MEDICAL | | | | | | CENTER - | | | | | | LABORATORY | | + + + + + + | Alkaline | 55 | 40 - 110 IU/L | [facility] | | | Phosphatase | | | [facility] | | | | | | MEDICAL | | | | | | CENTER - | | | | | | LABORATORY | | + + + + + + | AST | 21 | 10 - 42 IU/L | [facility] | | | | | | [facility] | | | | | | MEDICAL | | | | | | CENTER - | | | | | | LABORATORY | | + + + + + + | ALT | 19 | 6 - 45 IU/L | [facility] | | | | | | [facility] | | | | | | MEDICAL | | | | | | CENTER - | | | | | | LABORATORY | | + + + + + + | Bilirubin | 0.5 | 0.2 - 1.0 mg/dL | [facility] | | | Total | | | [facility] | | | | | | MEDICAL | | | | | | CENTER - | | | | | | LABORATORY | | + + + + + + | Total | 6.8 | 6.0 - 7.8 gm/dL | [facility] | | | Protein | | | [facility] | | | | | | MEDICAL | | | | | | CENTER - | | | | | | LABORATORY | | + + + + + + | Albumin | 3.8 | 3.2 - 5.0 gm/dL | [facility] | | | | | | [facility] | | | | | | MEDICAL | | | | | | CENTER - | | | | | | LABORATORY | | + + + + + + | BUN | 5 (L) | 7 - 18 mg/dL | [facility] | | | | | | [facility] | | | | | | MEDICAL | | | | | | CENTER - | | | | | | LABORATORY | | + + + + + + | Creatinine | 0.54 (L) | 0.60 - 1.30 | [facility] | | | | | mg/dL | [facility] | | | | | | [facility] | | | | | | CENTER - | | | | | | LABORATORY | | + + + + + + | Estimated | >60Comment: For | >60 mL/min/A | [facility] | | | GFR | -Americans, | | [facility] | | | | please multiply the | | MEDICAL | | | | result by 1.210 | | CENTER - | | | | This is an estimated | | LABORATORY | | | | GFR and is based on | | | | | | a standard body | | | | | | mass and serum | | | | | | creatinine | | | | + + + + + + | BUN/Creatin | 9.3 (L) | 12 - 20 | [facility] | | | ine Ratio | | | [facility] | | | | | | MEDICAL | | | | | | CENTER - | | | | | | LABORATORY | | + + + + + + | Na | 139 | 136 - 149 mEq/L | [facility] | | | | | | [facility] | | | | | | MEDICAL | | | | | | CENTER - | | | | | | LABORATORY | | + + + + + + | K | 3.2 (L) | 3.5 - 5.1 mEq/l | [facility] | | | | | | [facility] | | | | | | MEDICAL | | | | | | CENTER - | | | | | | LABORATORY | | + + + + + + | Cl | 104 | 98 - 109 mEq/l | [facility] | | | | | | [facility] | | | | | | MEDICAL | | | | | | CENTER - | | | | | | LABORATORY | | + + + + + + | CO2 | 27 | 24 - 31 mEq/L | [facility] | | | | | | [facility] | | | | | | MEDICAL | | | | | | CENTER - | | | | | | LABORATORY | | + + + + + + | Anion Gap | 11.2 | 6.0 - 17.0 | [facility] | | | | | [...] + | [facility] | [address] | [place] | [phone] | | [facility] | | [address] | | | - LABORATORY | | | | + + + + + | [facility] | [address] | [place] | | | [facility] | | [address] | | | - LABORATORY | | | | + + + + + HCG, Serum, Quant (02/18/2011 3:27 PM PDT) + + + + + + | Component | Value | Ref Range | Performed | Pathologist | | | | | At | Signature | + + + + + + | hCG Quant, | [phone] (H)Comment: @HAS | <0.5 - 5.0 | [facility] | | | Serum | HhCG QC BEEN RUN? | mIU/mL | [facility] | | | | [facility]: | | MEDICAL | | | [...] | | | | | | the [employer] | | | | | | Access Analyzer. | | | | + + + + + + + + | Specimen | + + | | + + + + + + + | Performing | Address | City/State/Zipcode | Phone Number | | Organization | | | | + + + + + | [facility] | [address] | [place], [place] | [phone] | | [facility] | | [address] | | | - LABORATORY | | | | + + + + + | [facility] | [address] | [place], [place] | | | [facility] | | [address] | | | - LABORATORY | | | | + + + + + US OB Transvaginal (02/18/2011 1:08 PM PDT) + + | Specimen | + + | | + + + + + | Narrative | Performed At | + + + | [facility] Diagnostic Imaging Department | [facility] | | [address] | [facility] | | O B S T E T R I C A L | DIAG IMG | | U L T R A S O U N D R E P O R T | | | FIRST TRIMESTER Attending Physician: KATIE | | | Hotel Sales Manager: HESHAM LMP: [id number] Mens AGE: 6w 3d : 2 | | | Para: 1 Additional Info: MOVED THIS WKND MID PELVIC PAIN - | | | - - - - - - - - - - - - - - - - - - - - - - - - - - - - - - - - - - | | | CRL: .9 AGE: 7w 0d Mean Sac Diameter: 2.5 Age: | | | 7w 5d Yolk Sac? YES Diameter: .24 Amnion? NO Heart Rate: | | | 130 bpm OB LESS THAN 14 WEEKS TRANSABDOMINAL ULTRASOUND, | | | 02/20/2011 CLINICAL HISTORY: 6 WEEKS WITH VOMITING. | | | COMPARISON: Note the exam was unable to be viewed due to | | | technical difficulties with transferring to the PACS system. A | | | preliminary report had been provided to the Emergency Room | | | physician by the admitting coordinator prior to having the technical | | | difficulties which precluded the radiologist interpreting images | | | on the date of acquisition. FINDINGS: TRANSABDOMINAL: | | | There is an intrauterine gestation identified as an embryonic pole | | | and yolk sac. Cardiac activity is identified and documented at | | | 130 beats per minute. Ovaries are visualized. TRANSVAGINAL: | | | Transvaginal imaging confirms the intrauterine gestation and | | | embryonic pole. Both ovaries are visualized and are unremarkable. | | | No sonographic evidence for ovarian torsion. The right | | | measures 2.7 x 1.9 x 2.8 cm and the left measures 2.4 x 1.8 x 2.2 cm. | | | IMPRESSION: 1. INTRAUTERINE GESTATION IS CONFIRMED AND | | | MEASUREMENTS CORRELATE WITH AN ESTIMATED GESTATIONAL AGE OF 7 WEEKS | | | 3 DAYS. 2. NO EVIDENCE FOR ECTOPIC . 3. NO | | | SONOGRAPHIC EVIDENCE TO SUGGEST OVARIAN TORSION. Dictated | | | Date/Time: 02/20/2011 10:19 Transcribed Date/Time: 02/20/2011 | | | 10:57 Oil Producer: <Electronically Signed by Sumit Romano | | | MD Apple> 02/21/11 8908 | | + + + + + | Procedure Note | + + | Rupesh Grbubs Conversion - 11/26/2013 2:51 PM [facility] | | Diagnostic Imaging Department | | [address] | | | | | | | | O B S T E T R I C A L U L T R A S O U N D R E P O R T | | FIRST TRIMESTER | | | | Attending Physician: KATIE Hotel Sales Manager: HESHAM | | LMP: [id number] Mens AGE: 6w 3d : 2 Para: 1 | | Additional Info: MOVED THIS WKND MID PELVIC PAIN | | | | - - - - - - - - - - - - - - - - - - - - - - - - - - - - - - - - - - - | | | | CRL: .9 AGE: 7w 0d Mean Sac Diameter: 2.5 Age: 7w 5d | | Yolk Sac? YES Diameter: .24 Amnion? NO Heart Rate: 130 bpm | | | | OB LESS THAN 14 WEEKS TRANSABDOMINAL ULTRASOUND, 02/20/2011 | | | | CLINICAL HISTORY: 6 WEEKS WITH VOMITING. | | | | COMPARISON: Note the exam was unable to be viewed due to technical | | difficulties with | | transferring to the PACS system. A preliminary report had been provided to the | | Emergency Room | | physician by the admitting coordinator prior to having the technical difficulties which | | precluded the | | radiologist interpreting images on the date of acquisition. | | | | FINDINGS: | | | | TRANSABDOMINAL: There is an intrauterine gestation identified as an embryonic | | pole and yolk | | sac. Cardiac activity is identified and documented at 130 beats per minute. | | Ovaries are visualized. | | | | TRANSVAGINAL: Transvaginal imaging confirms the intrauterine gestation and | | embryonic pole. | | Both ovaries are visualized and are unremarkable. No sonographic evidence for | | ovarian torsion. | | The right measures 2.7 x 1.9 x 2.8 cm and the left measures 2.4 x 1.8 x 2.2 cm. | | | | | | IMPRESSION: | | 1. INTRAUTERINE GESTATION IS CONFIRMED AND MEASUREMENTS CORRELATE | | WITH AN ESTIMATED GESTATIONAL AGE OF 7 WEEKS 3 DAYS. | | | | 2. NO EVIDENCE FOR ECTOPIC . | | | | 3. NO SONOGRAPHIC EVIDENCE TO SUGGEST OVARIAN TORSION. | | | | Dictated Date/Time: 02/20/2011 10:19 | | Transcribed Date/Time: 02/20/2011 10:57 | | Oil Producer: FER | | <Electronically Signed by Sumit Chiu MD> 02/21/11 1708 | + + + +---------+ + + | Performing | Address | City/State/Zipcode | Phone Number | | Organization | | | | + +---------+ + + | [place] | | | | | [facility] | | | | + +---------+ + + US OB < 14 Weeks Singl or First Gestatio (02/18/2011 1:08 PM PDT) + + | Specimen | + + | | + + + + + | Narrative | Performed At | + + + | [facility] Diagnostic Imaging Department | [facility] | | [address] | [facility] | | O B S T E T R I C A L | DIA IMG | | U L T R A S O U N D R E P O R T | | | FIRST TRIMESTER Attending Physician: KATIE | | | Hotel Sales Manager: HESHAM LMP: [id number] Mens AGE: 6w 3d : 2 | | | Para: 1 Additional Info: MOVED THIS WKND MID PELVIC PAIN - | | | - - - - - - - - - - - - - - - - - - - - - - - - - - - - - - - - - - | | | CRL: .9 AGE: 7w 0d Mean Sac Diameter: 2.5 Age: | | | 7w 5d Yolk Sac? YES Diameter: .24 Amnion? NO Heart Rate: | | | 130 bpm OB LESS THAN 14 WEEKS TRANSABDOMINAL ULTRASOUND, | | | 02/20/2011 CLINICAL HISTORY: 6 WEEKS WITH VOMITING. | | | COMPARISON: Note the exam was unable to be viewed due to | | | technical difficulties with transferring to the PACS system. A | | | preliminary report had been provided to the Emergency Room | | | physician by the admitting coordinator prior to having the technical | | | difficulties which precluded the radiologist interpreting images | | | on the date of acquisition. FINDINGS: TRANSABDOMINAL: | | | There is an intrauterine gestation identified as an embryonic pole | | | and yolk sac. Cardiac activity is identified and documented at | | | 130 beats per minute. Ovaries are visualized. TRANSVAGINAL: | | | Transvaginal imaging confirms the intrauterine gestation and | | | embryonic pole. Both ovaries are visualized and are unremarkable. | | | No sonographic evidence for ovarian torsion. The right | | | measures 2.7 x 1.9 x 2.8 cm and the left measures 2.4 x 1.8 x 2.2 cm. | | | IMPRESSION: 1. INTRAUTERINE GESTATION IS CONFIRMED AND | | | MEASUREMENTS CORRELATE WITH AN ESTIMATED GESTATIONAL AGE OF 7 WEEKS | | | 3 DAYS. 2. NO EVIDENCE FOR ECTOPIC . 3. NO | | | SONOGRAPHIC EVIDENCE TO SUGGEST OVARIAN TORSION. Dictated | | | Date/Time: 02/20/2011 10:19 Transcribed Date/Time: 02/20/2011 | | | 10:57 Oil Producer: <Electronically Signed by Sumit Romano | | | MD Apple> 02/20/11 1450 | | + + + + + | Procedure Note | + + | Romie, Rad Conversion - 11/26/2013 2:51 PM [facility] | | Diagnostic Imaging Department | | [address] | | | | | | | | O B S T E T R I C A L U L T R A S O U N D R E P O R T | | FIRST TRIMESTER | | | | Attending Physician: KATIE Hotel Sales Manager: HESHAM | | LMP: [id number] Mens AGE: 6w 3d : 2 Para: 1 | | Additional Info: MOVED THIS WKND MID PELVIC PAIN | | | | - - - - - - - - - - - - - - - - - - - - - - - - - - - - - - - - - - - | | | | CRL: .9 AGE: 7w 0d Mean Sac Diameter: 2.5 Age: 7w 5d | | Yolk Sac? YES Diameter: .24 Amnion? NO Heart Rate: 130 bpm | | | | OB LESS THAN 14 WEEKS TRANSABDOMINAL ULTRASOUND, 02/20/2011 | | | | CLINICAL HISTORY: 6 WEEKS WITH VOMITING. | | | | COMPARISON: Note the exam was unable to be viewed due to technical | | difficulties with | | transferring to the PACS system. A preliminary report had been provided to the | | Emergency Room | | physician by the admitting coordinator prior to having the technical difficulties which | | precluded the | | radiologist interpreting images on the date of acquisition. | | | | FINDINGS: | | | | TRANSABDOMINAL: There is an intrauterine gestation identified as an embryonic | | pole and yolk | | sac. Cardiac activity is identified and documented at 130 beats per minute. | | Ovaries are visualized. | | | | TRANSVAGINAL: Transvaginal imaging confirms the intrauterine gestation and | | embryonic pole. | | Both ovaries are visualized and are unremarkable. No sonographic evidence for | | ovarian torsion. | | The right measures 2.7 x 1.9 x 2.8 cm and the left measures 2.4 x 1.8 x 2.2 cm. | | | | | | IMPRESSION: | | 1. INTRAUTERINE GESTATION IS CONFIRMED AND MEASUREMENTS CORRELATE | | WITH AN ESTIMATED GESTATIONAL AGE OF 7 WEEKS 3 DAYS. | | | | 2. NO EVIDENCE FOR ECTOPIC . | | | | 3. NO SONOGRAPHIC EVIDENCE TO SUGGEST OVARIAN TORSION. | | | | Dictated Date/Time: 02/20/2011 10:19 | | Transcribed Date/Time: 02/20/2011 10:57 | | Oil Producer: FER | | <Electronically Signed by Sumit Chiu MD> 02/20/11 1450 | + + + +---------+ + + | Performing | Address | City/State/Zipcode | Phone Number | | Organization | | | | + +---------+ + + | [place] | | | | | [facility] | | | | + +---------+ + + documented in this encounter Visit Diagnoses Not on filedocumented in this encounter"
--- OUTSIDE RECORDS SUMMARY | ~2019-10-25 | XMS | Encounter Summary ---
Demographics + + + | Address | General Delivery | | | [place] [address] | + + + | Home Phone | | + + + | Preferred Language | Unknown | + + + | Marital Status | | + + + | Baptist Affiliation | Unknown | + + + | Race | Unknown | + + + | Ethnic Group | Unknown | + + + Author + + + | Author | [facility] | | | and [place] | + + + | Organization | [facility] | | [...] Team Providers + +------+ + | Care Adult Specialist Name | Role | Phone | + +------+ + PCP | Unavailable | + +------+ + Encounter Details +--------+ + + + + | Date | Type | Department | Care Team | Description | +--------+ + + + + | 05/05/ | Hospital | [facility] | | | | 1991 | Encounter | MED CTR XRAY [address] | | | | | | [place] | | | | | | [place] [address] | | | | | | [phone] | | | +--------+ + + + [...]
--- OUTSIDE RECORDS SUMMARY | ~2019-10-25 | XMS | Encounter Summary ---
Demographics + + + | Address | General Delivery | | | [place] [address] | + + + | Home Phone | | + + + | Preferred Language | Unknown | + + + | Marital Status | | + + + | Gnosticism Affiliation | Unknown | + + + [...] Team Providers + +------+ + | Care Pediatric Oncology Nurse Name | Role | Phone | + +------+ + PCP | Unavailable | + +------+ + Encounter Details +--------+ + + + + | Date | Type | Department | Care Team | Description | +--------+ + + + + | 10/24/ | Hospital | [facility] | | | | 2003 | Encounter | MED CTR XRAY [address] | | | | | | [place] | | | | | | [place] [address] | | | | | | [phone] | | | +--------+ + + + [...]
--- OUTSIDE RECORDS SUMMARY | ~2019-10-25 | XMS | Encounter Summary ---
Demographics + + + | Address | General Delivery | | | [place] [address] | + + + | Home Phone | | + + + | Preferred Language | Unknown | + + + | Marital Status | | + + + | Nondenominational Affiliation | Unknown | + + + [...] Team Providers + +------+ + | Care Land Leases And Rentals Manager Name | Role | Phone | + +------+ + | No, Physician | PCP | Unavailable | + +------+ + Reason for Visit + + + | Reason | Comments | + + + | Non-stress Test | Hyperemesis | + + + Auth/Cert +--------+--------+ + + + + | [...] | +--------+ + + + + | 08/15/ | Hospital | [facility] | Sunny Raza | | | 2014 | Encounter | MED CTR LABOR AND | MD Luciana [address] [facility] | | | | | DELIVERY [address] | [place] | | | | | [place], | [id number] | | | | | [place] [address] | | | | | | [phone] | | | +--------+ + + + [...] + + + | Blood Pressure | 114/43 | 08/15/2015 9:52 AM | | | | | PDT | | + + + + + | Pulse | 89 | 08/15/2015 10:27 AM | | | | | PDT | | + + + + + | Temperature | 36.5 C (97.7 F) | 08/15/2015 10:00 AM | | | | | PDT | | + + + + + | Respiratory Rate | 18 | 08/15/2015 10:00 AM | | | | | PDT | | + + + + + | Oxygen Saturation | 91% | 08/15/2015 10:27 AM | | | | | PDT | | + + + + + | Inhaled Oxygen | - | - | | | Concentration | | | | + + + + + | Weight | 79.4 kg (175 lb) | 08/15/2015 6:08 AM | | | | | PDT | | + + + + + | Height | 167.6 cm (5' 6") | 08/15/2015 6:08 AM | | | | | PDT | | + + + + + | Body Mass Index | 28.25 | 08/15/2015 6:08 AM | | | | | PDT | | + + + + + documented in this encounter Discharge Instructions Instructions Nanda Olson RN - 08/15/2015 Hyperemesis Of Hyperemesis of is a severe form of "morning sickness", where the vomiting is exce ssive and may cause dehydration and chemical imbalances in the body. It occurs in about 1% o f pregnancies, and is usually worse during the 10-12th week of . It gets better by the 16th week. Its cause is not well understood, but may be related to rising hormone levels early in the . It can be a serious threat to mother and fetus if dehydration becom es severe. Therefore, follow the advice below carefully. If symptoms are severe and not controlled by home measures, intravenous fluids and admissio n to the hospital may be needed. Home Care: 1) Activity a. After awakening from sleep, remain in bed for 15 minutes before getting up. 2) Diet a. Eat frequent small meals rather than 3 large meals. b. A diet high in carbohydrates (starches) and fiber is best. Avoid greasy or spicy foods. c. If you are having trouble keeping down solid foods, drink frequent, small amounts of liq uids with electrolytes, such as broth or sports drinks. If nausea and vomiting continue, res t your stomach by waiting 1-2 hours before trying to drink again. d. Keep a log of the foods you eat and how they affect your symptoms. Avoid foods that trig taryn your symptoms. e. Keep Saltine crackers at the bedside. If you are nauseated upon awakening, eat some crac kers or dry toast before getting out of bed. 3) Medicine a. In general, it is best to avoid strong medicines during , especially during the first three months. The effect on the growing baby is not always known and these could caus e harm. Your doctor will recommend a prescription medicine only when the symptoms you are fuentes ving (vomiting and dehydration) are more dangerous to the baby than the small risk of using the medicine. b. Taking Vitamin B6 (pyridoxine), 10-25 mg daily is safe and may be helpful to reduce naus ea. c. Check with your doctor before taking any other mqmd-nuk-rwvwjwf or herbal medicines duri ng your . Follow Up: With your doctor within the next few days or as instructed by this facility. Get Prompt Medical Attention if any of the following occur: -- Unable to keep any clear liquids down over a six-hour period -- Worsening weakness, dizziness or fainting occurs -- No weight gain over a two-week period -- Severe constant lower right abdominal pain -- Fever, chills or frequent diarrhea [id number] [place], [place] [id number]. All righ ts reserved. This information is not intended as a substitute for professional medical care. Always follow your healthcare professional's instructions. documented in this encounter Medications at Time of [...] +---------+--------+ + documented as of this encounter Progress Notes Nanda Olson RN - 08/15/2015 10:30 AM PDTPt reports she feels much better and wants to go home now. IV removed and pt given verbal and written discharge instructions. She verbalizes understanding. Discharged to home in stable condition with a friend. Nanda Montgomery RN - 08/15/2015 8:25 AM PDTPt w ith emesis. Nanda Montgomery RN - 08/15/2015 8:20 AM PDTPt reports she is only feeling a little bit better. Second bag of LR hung. Nanda Montgomery RN - 08/15/2015 7:15 AM PDTAssumed care of patient. Patient is sleeping.Electronically s igned by Nanda Olson RN at 08/15/2015 10:37 AM Jeanette Centeno RN - 08/15/2015 7:00 AM PDTLR infusing. Zofran given, phenergan 25mg IVPB started. PT having a little relie f from nausea. Report to Nanda ROSADO.Electronically signed by Jeanette Johnson RN at 08/15 7:33 AM Jeanette Centeno RN - 08/15/2015 6:00 AM PDTPt. Arrives per WC with nausea and vomiting; loud noises/.growl with emesis; 30 4/7 wks gestation[address] Her OB Dr. Is in [place]. Due to distance, she has come here for assistance. Reports nausea and vomiting every day of her . She reports oral antiemetics no longer effective. She has tri ed Zofran ODT and marijuana last 24 hours for nausea without relief. To room 364.Electronica lly signed by Jeanette Johnson RN at 08/15/2015 6:45 AM PDTdocumented in this encounte r Plan of Treatment Not on filedocumented as of this encounter Visit Diagnoses Not on filedocumented in this encounter Administered Medications + +---------+ +------+-------+------+ | Medication Order | MAR | Action | Dose | Rate | Site | | | Action | Date | | | | + +---------+ +------+-------+------+ | lactated ringers (LR) infusion | New Bag | 08/15/20 | | 999 | | | at 999 mL/hr, Intravenous, ONCE, | | 15 6:39 | | mL/hr | | | 08/15/15 at 0645, For 1 dose | | AM PDT | | | | + +---------+ +------+-------+------+ +---+---+ | | | +---+---+ + +---------+ +---------+-------+---+ | lactated ringers (LR) infusion | New Bag | 08/15/20 | 500 mLs | 500 | | | at 500 mL/hr, Intravenous, ONCE | | 15 8:22 | | mL/hr | | | PRN, if nausea doesn't improve | | AM PDT | | | | | and pt. not feeling improved | | | | | | | after first bag of LR, Starting | | | | | | | 08/15/15 at 0624, For 1 dose | | | | | | + +---------+ +---------+-------+---+ +---+---+ | | | +---+---+ + +-------+ +------+---+---+ | ondansetron (ZOFRAN) injection | Given | 08/15/20 | 8 mg | | | | 8 mg 8 mg, Intravenous, ONCE, | | 15 6:47 | | | | | Fri08/15/15 at 0700, For 1 dose | | AM PDT | | | | + +-------+ +------+---+---+ +---+---+ | | | +---+---+ + +---------+ +-------+-------+---+ | promethazine (PHENERGAN) 25 mg | New Bag | 08/15/20 | 25 mg | 204 | | | in sodium chloride 0.9% 50 mL | | 15 6:55 | | mL/hr | | | IVPB 25 mg, Intravenous, | | AM PDT | | | | | Administer over 15 Minutes, EVERY | | | | | | | 6 HOURS PRN, Nausea, Vomiting, | | | | | | | Starting 08/15/15 at 0636 | | | | | | + +---------+ +-------+-------+---+ +---+---+ | | | +---+---+ documented in this encounter
--- OUTSIDE RECORDS SUMMARY | ~2019-10-25 | XMS | Encounter Summary ---
Demographics + + + | Address | General Delivery | | | [place] [address] | + + + | Home Phone | | + + + | Preferred Language | Unknown | + + + | Marital Status | | + + + | Jain Affiliation | Unknown | + + + | Race | Unknown | + + + | Ethnic Group | Unknown | + + + Author + + + | Author | [facility] | | | and [place] | + + + | Organization | [facility] | | | [...] Team Providers + +------+ + | Care Electric Lineman Name | Role | Phone | + +------+ + | No, Physician | PCP | Unavailable | + +------+ + Reason for Visit + + + | Reason | Comments | + + + | Emesis | | + + + | Contractions | | + + + Encounter Details +--------+ + + + + | Date | Type | Department | Care Team | Description | +--------+ + + + + | 09/03/ | Hospital | [facility] | Mai Tierney | | | 2015 | Encounter | MED CTR LABOR AND | Lucinda Moseley DO | | | | | DELIVERY [address] | [address] | | | | | [place], | [place], [place] | | | | | [place] [address] | [address] | | | | | [phone] | | | +--------+ + + + [...] + + + | Blood Pressure | - | - | | + [...] Weight | 81.6 kg (180 lb) | 09/03/2015 5:12 AM | | | | | PST | | + + + + + | Height | - | - | | + + + + + | Body Mass Index | 29.05 | 08/15/2015 6:08 AM | | | | | PDT | | + + + + + documented in this encounter Discharge Instructions Instructions Amauri Hamm RN - 09/03/2015Keep follow-up with your OB tomorrow. Return i f nausea and vomiting returns and persists. Monitor movement. Discharge Education for the Undelivered Patient You can use the following list as [...] a pad Temperature over 100.4 (38 C) documented in this encounter Medications at Time [...] documented as of this encounter Progress Notes Amauri Hamm RN - 09/03/2015 12:25 PM PSTPatient states understanding of discharge inst ruction. DC's to home. Amauri Cavazos RN - 09/03/2015 12:15 PM PSTPatient again reports feeling better. Po meds given. Amauri Ferrera RN - 09/03/2015 12:15 PM PSTDrAnamika Tierney here, reviews heart tracing. Orders to discharge patient to home. P M Amauri Ferrera RN - 09/03/2015 11:15 AM PSTPatient reports having nausea again after drinking a large amount of water. Patient does have emesis. And request more nausea medicati on. Amauri Ferrera RN - 09/03/2015 10:45 AM PSTPatient reports feeling better. Tolerating PO fluid and ordering lunch now. Sunshine Ferrera RN - 09/03/2015 8:56 AM PSTPatient awake now but drowsy. Reports feeling better. She does not feel that she could void at this time. ounds, Amauri Mcclelland RN - 09/03/2015 8:30 AM PSTAssumed patient care. Patient appears to be sleeping comfortably.Electronically signed by Amauri Hamm RN at 1 11/03/2014 8:56 AM PSTWiMickie christensen RN - 09/03/2015 7:26 AM PSTReport to Nanda ROSADO.Mariah ctronically signed by Mickie Nolasco RN at 09/03/2015 7:26 AM PSTWiMickie christensen RN - 09/03/2015 7:00 AM PSTPt appears to be sleeping. Reactive strip obtained and monitors of f at this time. iMickie julio om, RN - 09/03/2015 6:18 AM PSTZofran 8mg given ickie Nolasco RN - 09/03/2015 5:11 AM PSTPt arrives with complaints of vomiting since 0200 and contractions that she does not know when they started. Denies bleeding or leaking of any fluids.. documented in this encounter Plan of Treatment Not on filedocumented as of this encounter Procedures + +--------+ + + + | Procedure Name | Priori | Date/Time | Associated Diagnosis | Comments | | | ty | | | | + +--------+ + + + | ALCOHOL, URINE | Routin | 09/03/2015 | | Results for this | | | e | 10:42 AM | | procedure are in the | | | | PST | | results section. | + +--------+ + + + | DRUGS OF ABUSE, 7 | Routin | 09/03/2015 | | Results for this | | DRUG PANEL, REFLEX, | e | 10:40 AM | | procedure are in the | | URINE | | PST | | results section. | + +--------+ + + + | URINALYSIS | Routin | 09/03/2015 | | Results for this | | | e | 10:40 AM | | procedure are in the | | | | PST | | results section. | + +--------+ + + + | BASIC METABOLIC | Routin | 09/03/2015 | | Results for this | | PANEL | e | 9:05 AM | | procedure are in the | | | | PST | | results section. | + +--------+ + + + documented in this encounter Results Alcohol, Urine (09/03/2015 10:42 AM PST) + + + + + + | Component | Value | Ref Range | Performed | Pathologist | | | | | At | Signature | + + + + + + | ETHANOL UR | See CommentsComment: | NEG mg/dL | REFERENCE | | | | NegativeCutoff: 20 | | [facility] | | | | mg/dLTesting Performed: | | | | | | [place], [address], | | | | | | [place] [address] | | | | + + + + + + + + | Specimen | + + | Urine specimen | | (specimen) | + + + + + + + | Performing | Address | City/State/Zipcode | Phone Number | | Organization | | | | + + + + + | [facility] | [address] | [place] [address] | [phone] | + + + + + Urinalysis (09/03/2015 10:40 AM PST) + + + + + + | Component | Value | Ref Range | Performed | Pathologist | | | | | At | Signature | + + + + + + | Color | Yellow | Light Yellow, | [facility] | | | | | Yellow | [facility] | | | | [...] - 1.030 | [facility] | | | [place] | | | [facility] | | | | | | MEDICAL | | | | | | CENTER - | | | | | | LABORATORY | | + + + + + + | Protein, | Trace (A) | Negative | [facility] [...] + + + + | Ketones, | >= 80 mg/dL (A) | Negative | [facility] | [...] + | [facility] | [address] | [place] | [phone] | | [facility] | | [address] | | | - LABORATORY | | | | + + + + + Drugs of Abuse, 7 Drug Panel, Reflex, Urine (09/03/2015 10:40 AM PST) + + + + + + | Component | Value | Ref Range | Performed | Pathologist | | | | | At | Signature | + + + + + + | Phencyclidi | See Comments | NEG ng/mL | REFERENCE | | | ne, Screen, | Comment: | | [facility] | | | Urine | Negative | | | | | | Cutoff: 25 ng/mL | | | | + + + + + + | Amp/Methamp | See Comments | NEG ng/mL | REFERENCE | | | hetamine, | Comment: | | [facility] | | | Screen, | Negative | | | | | Urine | Cutoff: 500 ng/mL | | | | + + + + + + | BARBITURATE | See Comments | NEG ng/mL | REFERENCE | | | S SCR | Comment: | | [facility] | | | | Negative | | | | | | Cutoff: 200 ng/mL | | | | + + + + + + | Cannabinoid | See Comments (A)Comment: | NEG ng/mL | REFERENCE | | | Screen, | AdditionalTesting | | [facility] | | | Urine | Required. See Analyte | | | | | | Confirmation | | | | + + + + + + | Benzodiazep | See Comments | NEG ng/mL | REFERENCE | | | mariia | Comment: | | [facility] | | | Screen, | Negative | | | | | Urine | Cutoff: 300 ng/mL | | | | + + + + + + | Cocaine | See Comments | NEG ng/mL | REFERENCE | | | Screen, | Comment: | | [facility] | | | Urine | Negative | | | | | | Cutoff: 150 ng/mL | | | | + + + + + + | Oxycodone | See Comments | NEG ng/mL | REFERENCE | | | | Comment: | | [facility] | | | | Negative | | | | | | Cutoff: 100 ng/mL | | | | + + + + + + | Opiates | See Comments | NEG ng/mL | REFERENCE | | | Screen, | Comment: | | [facility] | | | Urine | Negative | | | | | | Cutoff: 300 ng/mL | | | | + + + + + + | 6-MYRA | See Comments | NEG ng/mL | REFERENCE | | | Screen | Comment: | | [facility] | | | | Negative | | | | | | Cutoff: 10 ng/mL | | | | + + + + + + | pH, Urine | 8.2 | 4.0 - 9.0 | REFER[facility] | | | | | | [facility] | | + + + + + + | Creatinine, | 185 | >19 mg/dL | [facility]FER[facility] | | | Urine | | | [facility] | | + + + + + + | Specific | 1.013Comment: Testing | 1.003 - 1.020 | [facility]FER[facility] | | | [place] | Performed: [facility], [address] | | [facility] | | | | [address], [place] | | | | | | [address] | | | | + + + + + + | CARBOXY THC | >400 (A)Comment: LOQ: 4 | NOTDET ng/mL | REFERENCE | | | GC/MS | ng/mL | | [facility] | | + + + + + + + + | Specimen | + + | Urine specimen | | (specimen) | + + + + + + + | Performing | Address | City/State/Zipcode | Phone Number | | Organization | | | | + + + + + | [facility] | [address] | [place] [address] | [phone] | + + + + + Basic Metabolic Panel (09/03/2015 9:05 AM PST) + + + + + + | Component | Value | Ref Range | Performed | Pathologist | | | | | At | Signature | + + + + + + | Na | 132 (L) | 136 - 149 | [facility] | | | | | mmol/L | [facility] | | | | | | MEDICAL | | | | | | CENTER - | | | | | | LABORATORY | | + + + + + + | K | 3.3 (L) | 3.5 - 5.1 | [facility] [...] + + + + | CO2 | 23 (L) | 24 - 31 mmol/L | [facility] | | | | | | [facility] | | | | | | MEDICAL | | | | | | CENTER - | | | | | | LABORATORY | | + + + + + + | Anion Gap | 5 | 3 - 16 mmol/L | [facility] | | | | | | [facility] | | | | | | MEDICAL | | | | | | CENTER - | | | | | | LABORATORY | | + + + + + + | Glucose | 80 | 70 - 109 mg/dL | [facility] | | | | | | [facility] | | | | | | MEDICAL [...] + + + + | Creatinine | 0.33 (L) | 0.60 - 1.30 | [facility] [...] | | | FILTRATION | mL/min/1.73m2 | [facility] | | | [place] | RATE,ESTIMATED | | MEDICAL | | | | mL/min/1.24i1Panf than | | CENTER - | | [...] + + + + | Calcium | 8.0 (L) | 8.3 - 10.5 | [facility] | | | | | mg/dL | [facility] | | | | | | MEDICAL | | | | | | CENTER - | | | | | | LABORATORY | | + + + + + + | BUN/Creatin | 9.1 | | [facility] | | | ine Ratio | | | . [facility] | | | | | | [...] [facility]. | [address] | [place] | [phone] | | [facility] | | [address] | | | - LABORATORY | | | | + + + + + documented in this encounter Visit Diagnoses Not on filedocumented in this encounter Administered Medications + +--------+ + +------+------+ | Medication Order | MAR | Action | Dose | Rate | Site | | | Action | Date | | | | + +--------+ + +------+------+ | calcium-vitamin D (OSCAL) 500 | Given | 09/03/20 | 1 tablet | | | | mg-200 units per tablet 1 tablet | | 15 12:23 | | | | | 1 tablet, Oral, ONCE, Sun | | PM PST | | | | | 09/03/15 at 1100, For 1 dose | | | | | | + +--------+ + +------+------+ +---+---+ | | | +---+---+ + +---------+ +--------+-------+---+ | lactated ringers (LR) bolus | New Bag | 09/03/20 | 1,000 | 1000 | | | 1,000 mL 1,000 mL, Intravenous, | | 15 5:45 | mLs | mL/hr | | | Administer over 1 Hours, ONCE, | | AM PST | | | | | 09/03/15 at 0630, For 1 dose | | | | | | + +---------+ +--------+-------+---+ +---+---+ | | | +---+---+ + +-------+ +------+---+---+ | ondansetron (ZOFRAN) injection | Given | 09/03/20 | 8 mg | | | | 8 mg 8 mg, Intravenous, ONCE, | | 15 6:15 | | | | | 09/03/15 at 0630, For 1 dose | | AM PST | | | | + +-------+ +------+---+---+ +---+---+ | | | +---+---+ + +-------+ +--------+---+---+ | potassium chloride (K-DUR) ER | Given | 09/03/20 | 40 mEq | | | | tablet 40 mEq 40 mEq, Oral, | | 15 12:22 | | | | | ONCE, 09/03/15 at 1100, For 1 | | PM PST | | | | | dose | | | | | | + +-------+ +--------+---+---+ +---+---+ | | | +---+---+ + +---------+ +-------+-------+---+ | promethazine (PHENERGAN) 25 mg | New Bag | 09/03/20 | 25 mg | 500 | | | in sodium chloride 0.9% 250 mL | | 15 11:47 | | mL/hr | | | IVPB 25 mg, Intravenous, | | AM PST | | | | | Administer over 60 Minutes, ONCE, | | | | | | | 09/03/15 at 1130, For 1 | | | | | | | dose, Please add to a 250 ml | | | | | | | bag., | | | | | | + +---------+ +-------+-------+---+ +---+---+ | | | +---+---+ + +---------+ +-------+-------+---+ | promethazine (PHENERGAN) 25 mg | New Bag | 09/03/20 | 25 mg | 204 | | | in sodium chloride 0.9% 50 mL | | 15 6:23 | | mL/hr | | | IVPB 25 mg, Intravenous, | | AM PST | | | | | Administer over 15 Minutes, ONCE, | | | | | | | 09/03/15 at 0630, For 1 dose | | | | | | + +---------+ +-------+-------+---+ +---+---+ | | | +---+---+ + +---------+ +---+-------+---+ | sodium chloride 0.9% (NS) 1,000 | New Bag | 09/03/20 | | 500 | | | mL with adult multivitamin 10 | | 15 8:15 | | mL/hr | | | mL, thiamine (VITAMIN B-1) 100 | | AM PST | | | | | mg, folic acid 1 mg infusion at | | | | | | | 500 mL/hr, Intravenous, | | | | | | | CONTINUOUS, Starting 09/03/15 | | | | | | | at 0630 | | | | | | + +---------+ +---+-------+---+ +---+---+ | | | +---+---+ documented in this encounter"
--- OUTSIDE RECORDS SUMMARY | ~2019-10-25 | XMS | Clinical Summary ---
Demographics + + + | Address | General Delivery | | | [place] [address] | + + + | Home Phone | | + + + | Preferred Language | Unknown | + + + | Marital Status | | + + + | Roman Catholic Affiliation | Unknown | + + [...] Team Providers + +------+ + | Care Strap Stitcher Name | Role | Phone | + [...] +---------+--------+ | [employer] | CAREOR | [id number] | | [phone] | | Medica | [...] may | | | 4 (Home) | [address] | + +--------+ +--------+ + + Advance Directives + + + + + | Type | Date Recorded | Patient | Explanation | | | | Front Desk Officer | | + + + + + | Power of | | | | | Dynamo Repairer | | | | + + + + + | Advance | 01/16/2015 12:26 | | | | Directive | PM | | | + + + + +
--- OUTSIDE RECORDS SUMMARY | ~2019-10-25 | XMS | Encounter Summary ---
Demographics + + + | Address | General Delivery | | | [place] [address] | + + + | Home Phone | | + + + | Preferred Language | Unknown | + + + | Marital Status | | + + + | Druze Affiliation | Unknown | + + + | Race | Unknown | + + + | Ethnic Group | Unknown | + + + Author + + + | Author | [facility] | | | and [place] | + + + | Organization | [facility] | | [...] Team Providers + +------+ + | Care Custom Miller Name | Role | Phone | + +------+ + PCP | Unavailable | + +------+ + Encounter Details +--------+ + + + + | Date | Type | Department | Care Team | Description | +--------+ + + + + | 10/06/ | [facility] | [facility] | | | | 2005 | Encounter | MED CTR XRAY [address] | | | | | | [place] | | | | | | [place] [address] | | | | | | [phone] | | | +--------+ + + + [...]
--- OUTSIDE RECORDS SUMMARY | ~2019-10-25 | XMS | Encounter Summary ---
Demographics + + + | Address | General Delivery | | | [place] [address] | + + + | Home Phone | | + + + | Preferred Language | Unknown | + + + | Marital Status | | + + + | Sikhism Affiliation | Unknown | + + + | Race | Unknown | + + + | Ethnic Group | Unknown | + + + Author + + + | Author | [facility] | | | and [place] | + + + | Organization | [facility] | | | [...] Team Providers + +------+ + | Care Gang Hemstitching Machine Operator Name | Role | Phone [...] + + | 07/11/ | Hospital | [facility] | Sheldon Sult[place], | | | 2015 | Encounter | MED CTR LABOR AND | [id number] | | | | | DELIVERY [address] | [place] | | | | | [place], | [place] [address] | | | | | [place] [address] | [phone] | | | | | [phone] | | | +--------+ + + + [...] is receiving care from Dr. Murcia, in [facility], but considers herself homeless and was visiting her aunt in [place] when her nausea and emesis occurred. This is not a first occurrence of nausea and emesis and she has been evaluated and hydrated several time s in [place] for similar complaints. Dating of the is by a first trimester ultrasound. I did review her records from [place], and notable diagnoses include asthma, bipolar disorder [...] lives in various house holds both in [place] and [place]. She does not believe she needs any further access to aid agencies in [place] and feels that she is adequately supported when she is in [facility]. She plans to return to [place] soon. She is unemployed. She does have [...] until she can see Dr. Murcia in [facility]. At present she is feeling much [...] IV, BP, anti-emetics; Waiting for fax from [place] of records from the hospital ther e. Aunt is at side. Continues with the loud growling/scream/moan with frequent emesis.Colton ferrer signed by Jeanette Johnson RN at 07/11/2015 6:28 AM Jeanette Centeno R N - 07/11/2015 3:35 AM PDTPt. Arrives with loud,screaming, growling vomiting. To room 351 per wheel chair for evaluation. Unregistered pt. Who is receiving care in [place]. She is in [place] for this past day staying with an [...] | [address] | [place] | [phone] | | [facility] | | [address] | | | - LABORATORY | | [...] mL/min/1.73m2 | [facility] | | | [place] | RATE,ESTIMATED | | MEDICAL | | | | mL/min/1.51q3Kzvy than | | CENTER - | | [...] [address] | [place] | [phone] | | [facility] | | [address] | | | - LABORATORY | | [...] - 1.030 | [facility] | | | [place] | | | [facility] | | [...] [address] | [place] | [phone] | | [facility] | | [address] | | | - LABORATORY | | [...]
--- OUTSIDE RECORDS SUMMARY | ~2019-10-25 | XMS | Encounter Summary ---
Demographics + + + | Address | General Delivery | | | [place] [address] | + + + | Home Phone | | + + + | Preferred Language | Unknown | + + + | Marital Status | | + + + | Quaker Affiliation | Unknown | + + + [...] Team Providers + +------+ + | Care Shipping Hand Name | Role | Phone | + +------+ + PCP | Unavailable | + +------+ + Encounter Details +--------+ + + + + | Date | Type | Department | Care Team | Description | +--------+ + + + + | 09/19/ | Hospital | [facility] | Min Jeffrey, | | | 2008 | Encounter | MED CTR LABORATORY | DO [address] | | | | | [address] | [place] | | | | | [place] | [id number] | | | | | [address] | | | | | | [phone] | | | +--------+ + + + [...]
--- OUTSIDE RECORDS SUMMARY | ~2019-10-25 | XMS | Encounter Summary ---
Demographics + + + | Address | General Delivery | | | [place] [address] | + + + | Home Phone | | + + + | Preferred Language | Unknown | + + + | Marital Status | | + + + | Rastafarian Affiliation | Unknown | + + + | Race | Unknown | + + + | Ethnic Group | Unknown | + + + Author + + + | Author | [facility] | | | and [place] | + + + | Organization | [facility] | | | and [...] Team Providers + +------+ + | Care Tube Teller Name | Role | Phone | + +------+ + PCP | Unavailable | + +------+ + Encounter Details +--------+ + + + + | Date | Type | Department | Care Team | Description | +--------+ + + + + | 04/13/ | [facility] | [facility] | Sumit Tinajero, | | | 2006 | Encounter | MED CTR XRAY [address] | [address] | | | | | [place] | [place] | | | | | [place] [address] | [address] | | | | | [phone] | | | +--------+ + + + [...]
--- OUTSIDE RECORDS SUMMARY | ~2019-10-25 | XMS | Encounter Summary ---
Demographics + + + | Address | General Delivery | | | [place] [address] | + + + | Home Phone | | + + + | Preferred Language | Unknown | + + + | Marital Status | | + + + | Yarsanism Affiliation | Unknown | + + + | Race | Unknown | + + + | Ethnic Group | Unknown | + + + Author + + + | Author | [facility] | | | and [place] | + + + | Organization | [facility] | | | [...] Team Providers + +------+ + | Care Power Electronics Research Engineer Name | Role | Phone | + +------+ + PCP | Unavailable | + +------+ + Encounter Details +--------+ + + + + | Date | Type | Department | Care Team | Description | +--------+ + + + + | 05/14/ | Hospital | [facility] | Sunny Alvarado | | | 2005 | Encounter | MED CTR EMERGENCY | MD Josue [address] | | | | | CENTER [address] | [facility] | | | | | [place] | [place] [address] | | | | | [address] | [phone] | | | | | [phone] | | | +--------+ + + + [...]
--- OUTSIDE RECORDS SUMMARY | ~2019-10-25 | XMS | Encounter Summary ---
Demographics + + + | Address | General Delivery | | | [place] [address] | + + + | Home Phone | | + + + | Preferred Language | Unknown | + + + | Marital Status | | + + + | Episcopal Affiliation | Unknown | + + + [...] Team Providers + +------+ + | Care Global Coordinator Name | Role | Phone | + +------+ + PCP | Unavailable | + +------+ + Encounter Details +--------+ + + + + | Date | Type | Department | Care Team | Description | +--------+ + + + + | 09/21/ | Hospital | [facility] | Min Jeffrey, | | | 2008 | Encounter | MED CTR LABORATORY | DO [address] | | | | | [address] | [place] | | | | | [place] | [address] | | | | | [address] | | | | | | [phone] | | | +--------+ + + + [...]
--- OUTSIDE RECORDS SUMMARY | ~2019-10-25 | XMS | Encounter Summary ---
Demographics + + + | Address | General Delivery | | | [place] [address] | + + + | Home Phone | | + + + | Preferred Language | Unknown | + + + | Marital Status | | + + + | Judaism Affiliation | Unknown | + + + | Race | Unknown | + + + | Ethnic Group | Unknown | + + + Author + + + | Author | [facility] | | | and [place] | + + + | Organization | [facility] | | | and [place] | + [...] Team Providers + +------+ + | Care Slunk Skinner Name | Role | Phone | + +------+ + PCP | Unavailable | + +------+ + Encounter Details +--------+ + + + + | Date | Type | Department | Care Team | Description | +--------+ + + + + | 10/24/ | Hospital | [facility] | Min Jeffrey, | | | 2009 | Encounter | MED CTR LABORATORY | DO [address] | | | | | [address] | [place] | | | | | [place] | [address] | | | | | [address] | | | | | | [phone] | | | +--------+ + + + [...]
--- OUTSIDE RECORDS SUMMARY | ~2019-10-25 | XMS | Encounter Summary ---
Demographics + + + | Address | General Delivery | | | [place] [address] | + + + | Home Phone | | + + + | Preferred Language | Unknown | + + + | Marital Status | | + + + | Jewish Affiliation | Unknown | + + + | Race | Unknown | + + + | Ethnic Group | Unknown | + + + Author + + + | Author | [facility] | | | and [place] | + + + | Organization | [facility] | | [...] Team Providers + +------+ + | Care Baggage Handler Name | Role | Phone | + +------+ + PCP | Unavailable | + +------+ + Encounter Details +--------+ + + + + | Date | Type | Department | Care Team | Description | +--------+ + + + + | 02/18/ | Hospital | [facility] | Sanjeev Vail, | | | 2010 | Encounter | MED CTR EMERGENCY | [address] | | | | | CENTER [address] | [place] | | | | | [place] | [address] | | | | | [address] | | | | | | [phone] | | | +--------+ + + + [...] + | [facility] | [address] | [place] | [phone] | | [facility] | | [address] | | | - LABORATORY | | | | + + + + + | [facility] | [address] | [place] | | | [facility] | | [address] | | | - LABORATORY | | [...] | | | | | | the [employer] | | | | | | Access Analyzer. | | | | + + + + + + + + | Specimen | + + | | + + + + + + + | Performing | Address | City/State/Zipcode | Phone Number | | Organization | | | | + + + + + | [facility] | [address] | [place], [place] | [phone] | | [facility] | | [address] | | | - LABORATORY | | | | + + + + + | [facility] | [address] | [place], [place] | | | [facility] | | [address] | | | - LABORATORY | | | | + + + + + US OB Transvaginal (02/18/2011 1:08 PM PDT) + + | Specimen | + + | | + + + + + | Narrative | Performed At | + + + | [facility] Diagnostic Imaging Department | [facility] | | [address] [facility] | [facility] | | O B S T E T R I C A L | DIAG IMG | | U L T R A S O U N D R E P O R T | | | FIRST TRIMESTER Attending Physician: KATIE | | | Knockout Machine Operator: HESHAM LMP: [id number] Mens AGE: 6w 3d [...] Room | | | physician by the marine equipment engineer prior to having the technical | | [...] Transcribed Date/Time: 02/20/2011 | | | 10:57 International Marketing Executive: <Electronically Signed by Sumit Romano | | | MD Apple> 02/21/11 7548 | | + + + + + | Procedure Note | + + | Rupesh Grubbs Conversion - 11/26/2013 2:51 PM [facility] | | Diagnostic Imaging Department | | [address] | | | | | | | | O B S T E T R I C A L U L T R A S O U N D R E P O R T | | FIRST TRIMESTER | | | | Attending Physician: KATIE Knockout Machine Operator: HESHAM | | LMP: [id number] Mens AGE: [...] Emergency Room | | physician by the marine equipment engineer prior to having the technical difficulties which [...] | Transcribed Date/Time: 02/20/2011 10:57 | | International Marketing Executive: FER | | <Electronically Signed by Sumit [...] Performed At | + + + | [facility] Diagnostic Imaging Department | [facility] | | [address] | [facility] | | O B S T E T R I C A L | DIA IMG | | U L T R A S O U N D R E P O R T | | | FIRST TRIMESTER Attending Physician: KATIE | | | Knockout Machine Operator: HESHAM LMP: [id number] Mens AGE: 6w 3d [...] Room | | | physician by the marine equipment engineer prior to having the technical | | [...] Transcribed Date/Time: 02/20/2011 | | | 10:57 International Marketing Executive: <Electronically Signed by Sumit Romano | | | MD Apple> 02/20/11 1450 | | + + + + + | Procedure Note | + + | Romie, Rad Conversion - 11/26/2013 2:51 PM [facility] | | Diagnostic Imaging Department | | [address] [facility] [address] | | | | | | | | O B S T E T R I C A L U L T R A S O U N D R E P O R T | | FIRST TRIMESTER | | | | Attending Physician: KATIE Knockout Machine Operator: HESHAM | | LMP: [id number] Mens AGE: [...] Emergency Room | | physician by the marine equipment engineer prior to having the technical difficulties which [...] | Transcribed Date/Time: 02/20/2011 10:57 | | International Marketing Executive: FER | | <Electronically Signed by Sumit Chiu MD> 02/20/11 1450 | + + + +---------+ + + | Performing | Address | City/State/Zipcode | Phone Number | | Organization | | | | + +---------+ + + | [place] | | | | | [facility] | | | | + +---------+ + + documented in this encounter Visit Diagnoses Not on filedocumented in this encounter"
--- OUTSIDE RECORDS SUMMARY | ~2019-10-25 | XMS | Encounter Summary ---
Demographics + + + | Address | General Delivery | | | [place] [address] | + + + | Home Phone | | + + + | Preferred Language | Unknown | + + + | Marital Status | | + + + | Sikhism Affiliation | Unknown | + + + | Race | Unknown | + + + | Ethnic Group | Unknown | + + + Author + + + | Author | [facility] | | | and [place] | + + + | Organization | [facility] | | | [...] Team Providers + +------+ + | Care Bite Block Maker Name | Role | Phone | + +------+ + PCP | Unavailable | + +------+ + Encounter Details +--------+ + + + + | Date | Type | Department | Care Team | Description | +--------+ + + + + | 03/10/ | Hospital | [facility] | Basia Dorsey, | | | 2011 | Encounter | MED CTR WOMENS | [address] | | | | | [facility] [address] | [place] [address] | | | | | [place], | [phone] | | | | | [place] [address] | | | | | | [phone] | | | +--------+ + + + [...]
--- OUTSIDE RECORDS SUMMARY | ~2019-10-25 | XMS | Encounter Summary ---
Demographics + + + | Address | General Delivery | | | [place] [address] | + + + | Home Phone | | + + + | Preferred Language | Unknown | + + + | Marital Status | | + + + | Yarsani Affiliation | Unknown | + + + | Race | Unknown | + + + | Ethnic Group | Unknown | + + + Author + + + | Author | [facility] | | | and [place] | + + + | Organization | [facility] | | | and [place] | + + + | Address | Unknown | + + + | Phone | Unavailable | + + + Support + + +---------+ + | Name | Relationship | Address | Phone | + + +---------+ + | Mrais Cantrell | ECON | Unknown | | + + +---------+ + Care Team Providers + +------+ + | Care Fruit Bar Maker Name | Role | Phone | + +------+ + PCP | Unavailable | + +------+ + Encounter Details +--------+ + + + + | Date | Type | Department | Care Team | Description | +--------+ + + + + | 05/13/ | Hospital | [facility] | | | | 2000 | Encounter | MED CTR EMERGENCY | | | | | | CENTER [address] | | | | | | [place] | | | | | | [address] | | | | | | [phone] | | | +--------+ + + + [...]
--- OUTSIDE RECORDS SUMMARY | ~2019-10-25 | XMS | Encounter Summary ---
Demographics + + + | Address | General Delivery | | | [place] [address] | + + + | Home Phone | | + + + | Preferred Language | Unknown | + + + | Marital Status | | + + + | Confucianism Affiliation | Unknown | + + + | Race | Unknown | + + + | Ethnic Group | Unknown | + + + Author + + + | Author | [facility] | | | and [place] | + + + | Organization | [facility] | | [...] Team Providers + +------+ + | Care Survey Statistician Name | Role | Phone | + [...] + + | 08/15/ | Hospital | [facility] | Sunny Raza | | | 2014 | Encounter | MED CTR LABOR AND | MD [place] [address] [facility] | | | | | DELIVERY IP [address] | [place] | | | | | [place], | [address] | | | | | [place] [address] | | | | | | [phone] | | | +--------+ + + + [...] with your doctor before taking any other oqrx-umu-lmzbmdh or herbal medicines duri ng your . [...] pain -- Fever, chills or frequent diarrhea 8124-[address] [employer] [place], [place] [address]. All righ ts reserved. This information is [...] wks gestation. Her OB Dr. Is in [place]. Due to distance, she has come here [...]
--- OUTSIDE RECORDS SUMMARY | ~2019-10-25 | XMS | Encounter Summary ---
Demographics + + + | Address | General Delivery | | | [place] [address] | + + + | Home Phone | | + + + | Preferred Language | Unknown | + + + | Marital Status | | + + + | Mandaeism Affiliation | Unknown | + + + | Race | Unknown | + + + | Ethnic Group | Unknown | + + + Author + + + | Author | [facility] | | | and [place] | + + + | Organization | [facility] | | | [...] Team Providers + +------+ + | Care Steeping Press Operator Name | Role | Phone | + +------+ + PCP | Unavailable | + +------+ + Encounter Details +--------+ + + + + | Date | Type | Department | Care Team | Description | +--------+ + + + + | 05/13/ | Hospital | [facility] | | | | 2000 | Encounter | MED CTR EMERGENCY | | | | | | CENTER [address] | | | | | | [place] | | | | | | [address] | | | | | | [phone] | | | +--------+ + + + [...]
--- OUTSIDE RECORDS SUMMARY | ~2019-10-25 | XMS | Encounter Summary ---
Demographics + + + | Address | General Delivery | | | [place] [address] | + + + | Home Phone | | + + + | Preferred Language | Unknown | + + + | Marital Status | | + + + | Mormonism Affiliation | Unknown | + + + | Race | Unknown | + + + | Ethnic Group | Unknown | + + + Author + + + | Author | [facility] | | | and [place] | + + + | Organization | [facility] | | | [...] Team Providers + +------+ + | Care Model Maker Plaster Name | Role | Phone | + +------+ + PCP | Unavailable | + +------+ + Encounter Details +--------+ + + + + | Date | Type | Department | Care Team | Description | +--------+ + + + + | 10/12/ | Hospital | [facility] | Sunny Alvarado | | | 2010 | Encounter | MED CTR EMERGENCY | MD Josue [address] | | | | | CENTER [address] | [facility] | | | | | [place] | [place] [address] | | | | | [address] | [phone] | | | | | [phone] | | | +--------+ + + + [...] HhCG QC BEEN RUN? | mIU/mL | [facility] | | | | YESREFERENCE RANGE: | [...] + | [facility] | [address] | [place] | [phone] | | [facility] | | [address] | | | - LABORATORY | | | | + + + + + | [facility] | [address] | [place], [place] | | | [facility] | | [address] | | | - LABORATORY | | [...] - 1.030 | [facility] | | | [place] | | | [facility] | | [...] [address] | [place] | [phone] | | [facility] | | [address] | | | - LABORATORY | | | | + + + + + | [facility] | [address] | [place] | | | [facility] | | [address] | | | - LABORATORY | | | | + + + + + US OB Transvaginal (10/12/2011 1:14 PM PST) + + | Specimen | + + | | + + + + + | Narrative | Performed At | + + + | [facility] Diagnostic Imaging Department | [place] | | [address], [place] | [facility] | | EARLY OBSTETRIC ULTRASOUND | DIAG [...] Transcribed Date/Time: | | | 10/13/2011 13:21 Sock Boarder: <Electronically Signed | | | by Ryan Acevedo MD> 10/15/11 0945 | | + + + + + | Procedure Note | + + | Romie, Rad Conversion - 11/26/2013 4:27 PM [facility] | | Diagnostic Imaging Department [address] [facility] | | EARLY OBSTETRIC ULTRASOUND CLINICAL HISTORY: [...] 10:34 | |Transcribed Date/Time: 10/13/2011 13:21 | |Sock Boarder: | |<Electronically Signed by Ryan Acevedo MD> [...] [facility] Diagnostic Imaging Department | [facility] | | [address] [facility] | [facility] | | EARLY OBSTETRIC ULTRASOUND | DIAG [...] Transcribed Date/Time: | | | 10/13/2011 13:21 Sock Boarder: [email or web address] <Electronically Signed | | | by Ryan Acevedo MD> 10/13/11 1858 | | + + + + + | Procedure Note | + + | Romie, Rupesh Conversion - 11/26/2013 4:27 PM [facility] | | Diagnostic Imaging Department [address] [place] [address] | | EARLY OBSTETRIC ULTRASOUND CLINICAL HISTORY: [...] 10:34 | |Transcribed Date/Time: 10/13/2011 13:21 | |Sock Boarder: | |<Electronically Signed by Ryan Acevedo MD> [...]
--- OUTSIDE RECORDS SUMMARY | ~2019-10-25 | XMS | Encounter Summary ---
Demographics + + + | Address | General Delivery | | | [place] [address] | + + + | Home Phone | | + + + | Preferred Language | Unknown | + + + | Marital Status | | + + + | Temple Affiliation | Unknown | + + + [...] Team Providers + +------+ + | Care Applications Support Lead Name | Role | Phone | + [...] | | | | CENTER [address] | [address] [place] | ([facility]) (Primary Dx) | | | | [place], [place] | [place] [address] | | | | | [address] | [phone] | | | | | [phone] | | | +--------+ + + + [...]
--- OUTSIDE RECORDS SUMMARY | ~2019-10-25 | XMS | Encounter Summary ---
Demographics + + + | Address | General Delivery | | | [place] [address] | + + + | Home Phone | | + + + | Preferred Language | Unknown | + + + | Marital Status | | + + + | Religion Affiliation | Unknown | + + + | Race | Unknown | + + + | Ethnic Group | Unknown | + + + Author + + + | Author | [facility] | | | and [place] | + + + | Organization | [facility] | | | and [...] Team Providers + +------+ + | Care Time Study Technologist Name | Role | Phone | + [...] | SR | | | | | [phone] | | | +--------+ + + + [...]
--- OUTSIDE RECORDS SUMMARY | ~2019-10-25 | XMS | Encounter Summary ---
Demographics + + + | Address | General Delivery | | | [place] [address] | + + + | Home Phone | | + + + | Preferred Language | Unknown | + + + | Marital Status | | + + + | Quaker Affiliation | Unknown | + + + | Race | Unknown | + + + | Ethnic Group | Unknown | + + + Author + + + | Author | [facility] | | | and [place] | + + + | Organization | [facility] | | | [...] Team Providers + +------+ + | Care Director Apparel Name | Role | Phone | + [...] + + | 09/03/ | Hospital | [facility] | Mai Tierney | | | 2015 | Encounter | MED CTR LABOR AND | Lucinda Moseley DO | | | | | DELIVERY [address] | [address] | | | | | [place], | [place], [place] | | | | | [place] [address] | [address] | | | | | [phone] | | | +--------+ + + + [...] Ferrera RN - 09/03/2015 12:15 PM PSTDrAnamika Tienrey here, reviews heart tracing. Orders to discharge [...] - 09/03/2015 6:18 AM PSTZofran 8mg given iMckie Nolasco RN - 09/03/2015 5:11 AM PSTPt [...] | | | | | [place] [address] | | | | + + + + + + + + | Specimen | + + | Urine specimen | | (specimen) | + + + + + + + | Performing | Address | City/State/Zipcode | Phone Number | | Organization | | | | + + + + + | [facility] | [address] | [place] [address] | [phone] | + + + + + Urinalysis [...] - 1.030 | [facility] | | | [place] | | | [facility] | | [...] + | [facility] | [address] | [place] | [phone] | | [facility] | | [address] | | | - LABORATORY | | [...] - 1.020 | REFERENCE | | | [place] | Performed: [facility], [address] | | [facility] | | | | [address], [place] | | | | | | [address] | | | | + + + [...] [address] | [place] [address] | [phone] | + + + + + Basic [...] | mL/min/1.73m2 | [facility] | | | [facility] | RATE,ESTIMATED | | MEDICAL | | | | mL/min/1.29q2Acke than | | CENTER - | | [...] [address] | [place] | [phone] | | [facility] | | [address] | | | - LABORATORY | | [...]
--- OUTSIDE RECORDS SUMMARY | ~2019-10-25 | XMS | Encounter Summary ---
Demographics + + + | Address | General Delivery | | | [place] [address] | + + + | Home Phone | | + + + | Preferred Language | Unknown | + + + | Marital Status | | + + + | Congregation Affiliation | Unknown | + + + [...] Providers + +------+ + | Care Operations Intern Name | Role | Phone | + +------+ + PCP | Unavailable | + +------+ + Encounter Details +--------+ + + + + | Date | Type | Department | Care Team | Description | +--------+ + + + + | 05/11/ | [facility] | [facility] | Paul Mora MD | | | 2008 | Encounter | MED CTR XRAY [address] | [address] | | | | | [place] | [place] | | | | | [place] [address] | [address] | | | | | [phone] | | | +--------+ + + + [...]
--- OUTSIDE RECORDS SUMMARY | 2019-10-25 21:06 | XMS ---
PreManage Notification: EH MCCRAY Security Records Management Specialist Events No recent Security Events currently on file CRITERIA MET - Group Notification - [facility] - Has Care Guidelines - [facility] - 2 Visits in 30 Days CARE PROVIDERS FREDY ADAMS Physician Retail Selling Floor Leader 01/04/2019-Current PHONE: Unknown Shreyas Rangel Internal Medicine: Pulmonary Disease 02/15/2019-Current PHONE: Unknown KIMBERLEE Stoddard Internal Medicine Current PHONE: Unknown [employer] Case or Food Vendor Current PHONE: [phone] FREDY Parham Current PHONE: [phone] Guidelines Source: [facility] [place] Guidelines Date: 08/06/2019 Care Coordination: Mental health services provided by [employer].\T\nbsp; Please contact [employer] with mental health concerns.\T\nbsp; Zina/Jack Alvarez: [phone]\T\ nbsp; Celine: [phone]. Care History Medical/Surgical 09/27/2019 [facility] Patient used ER appropriately for asthma attack\T\nbsp;after walk in was closed.\T\nbsp; 02/15/2019 [facility] - PATIENT CURRENT PCP IS DR RANGEL OF 02/04/19. NEXT FOLLOW UP APT IS ON . - Patient is currently established with [facility]. If patient is seen in the ED during business hours. Please contact CHWs at [facility]. Care Recommendation: This patient has had 5 or more Emergency Department visits in the last 12 months.\T\nbsp; Patient requires education on the scope and purpose of the ED as an acute care provider not a Primary Care Provider and should not be utilized for chronic conditions.\T\nbsp; These are guidelines and the provider should exercise clinical judgment when providing care. Substance Use/Overdose 01/28/2018 [facility] PATIENT CURRENTLY USING METHAMPHETAMINES. USE CAUTION WITH ANY NARCOTICS. PATIENT IS CURRENTLY HOMELESS AND HER CHILDREN ARE IN STATE CUSTODY. REFER TO MENTAL HEALTH FOLLOW UP AND ENCOURAGE DRUG/ALCOHOL REHABILITATION. E.D. VISIT COUNT (12 MO.) 5 [facility] TOTAL 5 NOTE: Visits indicate total known visits. ED/UCC VISIT TRACKING (12 MO.) 10/25/2019 21:04 [facility] [place] TYPE: Emergency COMPLAINT: - ABDOMINAL PAIN/SOB 09/27/2019 00:31 [facility] [place] TYPE: Emergency COMPLAINT: - SOB/ASTHMA DIAGNOSES: - Personal history of nicotine dependence - Unspecified asthma with (acute) exacerbation - Allergy status to penicillin - Major depressive disorder, single episode, unspecified - Shortness of breath - Other intermediate (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 - Post-traumatic stress disorder, unspecified 08/04/2019 22:29 [facility] [place] TYPE: Emergency COMPLAINT: - SOB 02/15/2019 10:39 [facility] [place] TYPE: Emergency COMPLAINT: - DIFFICULTY BREATHING DIAGNOSES: - Other long term care administrator (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 - Shortness of breath [...] disorder, single episode, unspecified - Other intermediate (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 INPATIENT VISIT TRACKING (12 MO.) 08/04/2019 22:[address] [facility] [place] TYPE: Observation COMPLAINT: - ACUTE ASTHMA DIAGNOSES: - Hypokalemia - Other long term care administrator (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 - Personality disorder, unspecified [...] deficiency anemia secondary to blood loss (chronic) [email or web address]
[2019-10-25] MEDS ORDERED: ADVAIR 500-501 EACH INH (21:26)
[2019-10-25] MEDS ORDERED: PRAZOSIN HCL1 MG PO (21:27)
== END 2019-10-26 01:15 | disposition home or self-care (01) ==
LOC: ED 21:03
DX: J45.901 Unspecified asthma with (acute) exacerbation (principal); F32.9 Major depressive disorder, single episode, unspecified; F43.10 Post-traumatic stress disorder, unspecified; Z88.0 Allergy status to penicillin; Z79.899 Other long term (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
CPT/HCPCS: 71046; 80053; 81001; 83690; 84703; 85025; 94640; 96374; 99283-25; J2930

== ENCOUNTER 2020-02-19 08:18 | Emergency (ER) | payer OTHER ==
[~2020-02-19] VITALS: Ht 167.6 cm; Wt 72.6 kg
[~2020-02-19 08:18] MED LIST changes: +ADVAIR 500-501 EACH INH; +PRAZOSIN HCL1 MG PO
--- OUTSIDE RECORDS SUMMARY | 2020-02-19 08:20 | XMS ---
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 No recent Security Events currently on file CRITERIA MET - Group Notification - [facility] Care Guidelines CARE PROVIDERS FREDY ADAMS Physician Manager English 01/04/2019-Current PHONE: Unknown KIMBERLEE Stoddard Internal Medicine Current PHONE: [phone] TACO ROMO Internal Medicine: Pulmonary Disease 02/15/2019-Current PHONE: Unknown Guidelines Source: [facility] [place] Guidelines Date: 08/06/2019 Care Coordination: Mental health services provided by [facility].\T\nbsp; Please contact [facility] with mental health concerns.\T\nbsp; Zina/Jack Alvarez: [phone]\T\ nbsp; Celine: [phone]. Care History Medical/Surgical 10/26/2019 [facility] - PATIENT HAS AN APT WITH DR ESPAÑA ON 11/16/2019 FOR RX REQUEST. 09/27/2019 [facility] Patient used ER appropriately for asthma attack\T\nbsp;after walk in was closed.\T\nbsp; 02/15/2019 [facility] - PATIENT CURRENT PCP IS DR ESPAÑA OF 02/04/19. NEXT FOLLOW UP APT IS ON . - Patient is currently established with [facility]. If patient is seen in the ED during business hours. Please contact CHWs at [facility]. Care Recommendation: This patient has [...] judgment when providing care. Substance Use/Overdose 01/28/2018 [facility] PATIENT CURRENTLY USING METHAMPHETAMINES. USE CAUTION WITH ANY NARCOTICS. PATIENT IS CURRENTLY HOMELESS AND HER CHILDREN ARE IN STATE CUSTODY. REFER TO MENTAL HEALTH FOLLOW UP AND ENCOURAGE DRUG/ALCOHOL REHABILITATION. E.D. VISIT COUNT (12 MO.) 4 [facility]. TOTAL 4 NOTE: Visits indicate total known visits. ED/UCC VISIT TRACKING (12 MO.) 02/19/2020 08:19 [facility] [place] TYPE: Emergency COMPLAINT: - VOMITING 10/25/2019 21:04 [facility] [place] TYPE: Emergency COMPLAINT: - ABDOMINAL PAIN/SOB DIAGNOSES: - Post-traumatic stress disorder, unspecified - Allergy status to penicillin - Other watermaster (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 - Shortness of breath - Major depressive disorder, single episode, unspecified - Unspecified asthma with (acute) exacerbation 09/27/2019 00:31 [facility] [place] TYPE: Emergency COMPLAINT: - SOB/ASTHMA DIAGNOSES: - Personal history of nicotine dependence - Unspecified asthma with (acute) exacerbation - Allergy status to penicillin - Major depressive disorder, single episode, unspecified - Shortness of breath - Other detention (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 - Post-traumatic stress disorder, unspecified 08/04/2019 22:29 [facility] [place] TYPE: Emergency COMPLAINT: - SOB INPATIENT VISIT TRACKING (12 MO.) 08/04/2019 22:30 [facility] [place] TYPE: Observation COMPLAINT: - ACUTE ASTHMA DIAGNOSES: - Hypokalemia - Other watermaster (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 - Personality disorder, unspecified [...] deficiency anemia secondary to blood loss (chronic) [email or web address]
[2020-02-19] MEDS ORDERED: LATUDA40 MG PO (08:34)
[2020-02-19] MEDS ORDERED: ONDANSETRON ODT8 MG PO (13:24)
[2020-02-19] MEDS ORDERED: REGLAN10 MG PO (13:24)
== END 2020-02-19 16:20 | disposition home or self-care (01) ==
LOC: ED 08:18
DX: K29.00 Acute gastritis without bleeding (principal); J45.909 Unspecified asthma, uncomplicated; Z88.0 Allergy status to penicillin; Z79.899 Other long term (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
CPT/HCPCS: 80053; 81001; 83690; 84703; 85025; 96361; 96374; 96375; 96376; 99284-25; J1200; J1790; J2060; J2405; J3486; J7030

== ENCOUNTER 2020-06-02 09:15 | Emergency (ER) | payer OTHER ==
[~2020-06-02] VITALS: Ht 167.6 cm; Wt 72.6 kg
[~2020-06-02 09:15] MED LIST changes: +LATUDA40 MG PO
--- OUTSIDE RECORDS SUMMARY | 2020-06-02 09:18 | XMS ---
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 No recent Security Events currently on file CRITERIA MET - Group Notification - [facility] [place] [facility] Care Guidelines CARE PROVIDERS FREDY ADAMS Physician Loaders 01/04/2019-Current PHONE: Unknown KIMBERLEE Stoddard Internal Medicine Current PHONE: [phone] TACO ROMO Internal Medicine: Pulmonary Disease 02/15/2019-Current PHONE: Unknown Guidelines Source: [facility] Guidelines Date: 08/06/2019 Care Coordination: Mental health services provided by [facility].\T\nbsp; Please contact [facility] with mental health concerns.\T\nbsp; Zina/Jack Alvarez: [phone]\T\ nbsp; Celine: [phone]. Care History Medical/Surgical 10/26/2019 [facility] - PATIENT HAS AN APT WITH DR ESPAÑA ON 11/16/2019 FOR RX REQUEST. 09/27/2019 [facility] Patient used ER appropriately for asthma attack\T\nbsp;after walk in was closed.\T\nbsp; 02/15/2019 [facility] - PATIENT CURRENT PCP IS DR ESPAÑA OF 02/04/19. NEXT FOLLOW UP APT IS ON . - Patient is currently established with [facility]. If patient is seen in the ED during business hours. Please contact CHWs at [facility]. Care Recommendation: This patient has had 5 or more Emergency Department visits in the last 12 months.\T\nbsp; Patient requires education on the scope and purpose of the ED as an acute care provider not a Primary Care Provider and should not be utilized for chronic conditions.\T\nbsp; These are guidelines and the provider should exercise clinical judgment when providing care. Substance Use/Overdose 01/28/2018 [facility] PATIENT CURRENTLY USING METHAMPHETAMINES. USE CAUTION WITH ANY NARCOTICS. PATIENT IS CURRENTLY HOMELESS AND HER CHILDREN ARE IN STATE CUSTODY. REFER TO MENTAL HEALTH FOLLOW UP AND ENCOURAGE DRUG/ALCOHOL REHABILITATION. E.D. VISIT COUNT (12 MO[address] 5 [facility]. TOTAL 5 NOTE: Visits indicate total known visits. ED/UCC VISIT TRACKING (12 MO.) 06/02/2020 09:16 [facility] [place] TYPE: Emergency COMPLAINT: - VOMITING 02/19/2020 08:19 [facility] [place] TYPE: Emergency COMPLAINT: - VOMITING DIAGNOSES: - Allergy status to penicillin - Unspecified asthma, uncomplicated - Other senior living (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 - Unspecified abdominal pain - Acute gastritis without bleeding 10/25/2019 21:04 [facility] [place] TYPE: Emergency COMPLAINT: - ABDOMINAL PAIN/SOB DIAGNOSES: - Post-traumatic stress disorder, unspecified - Allergy status to penicillin - Other senior living (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 - Shortness of breath - Major depressive disorder, single episode, unspecified - Unspecified asthma with (acute) exacerbation 09/27/2019 00:31 [facility] [place] TYPE: Emergency COMPLAINT: - SOB/ASTHMA DIAGNOSES: - Personal history of nicotine dependence - Unspecified asthma with (acute) exacerbation - Allergy status to penicillin - Major depressive disorder, single episode, unspecified - Shortness of breath - 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
== END 2020-06-02 12:46 | disposition home or self-care (01) ==
LOC: ED 09:15
DX: K29.70 Gastritis, unspecified, without bleeding (principal); J45.909 Unspecified asthma, uncomplicated; F43.10 Post-traumatic stress disorder, unspecified; F32.9 Major depressive disorder, single episode, unspecified; Z88.0 Allergy status to penicillin; Z79.899 Other long term (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
CPT/HCPCS: 80053; 83690; 83735; 84703; 85025; 96374; 96375; 99284-25; J1200; J2405; J2765; J7040

== ENCOUNTER 2024-10-28 14:59 | Emergency (ER) | payer OTHER ==
[~2024-10-28] VITALS: Ht 167.6 cm; Wt 85.7 kg
[~2024-10-28 14:59] MED LIST changes: +OMEPRAZOLE40 MG PO; +ONDANSETRON HCL4 MG PO; +PROMETHEGAN25 MG PR; +TRAZODONE HCL100 MG PO; +VENTOLIN HFA18 GM
[2024-10-28] MEDS ORDERED: ADVAIR 250-501 EACH INH ×2 (16:25→21:10)
[2024-10-28 16:26] LABS: BILIRUBIN, URINE POSITIVE (negative); BLOOD/HGB, URINE SMALL (Negative); KETONE, URINE >=80 (Negative); LEUK ESTERASE, URINE NEGATIVE (negative); NITRITE, URINE NEGATIVE (negative)
[2024-10-28] MEDS ORDERED: ondansetron HCL 4 MG/2 ML VIAL IV ONE (16:30)
[2024-10-28 16:32] LABS: BACTERIA, URINE NONE SEEN /hpf (negative); CASTS, URINE NONE SEEN \\lpf; COLLECTION TYPE, URINE CLEAN CATCH; CRYSTALS, URINE NONE SEEN (0-1+); EPITHELIAL CELLS, URINE SQUAMOUS 1+ /lpf (0-1+); RED BLOOD CELLS, URINE 0-1 /hpf (0-5); REFLEX CULTURE, URINE No (No); WHITE BLOOD CELLS, URINE 0-1 /HPF (0-5)
[2024-10-28 16:45] LABS: BASOPHILS 0.4 % (0-2); EOSINOPHILS 0.5 % (0-6); HEMATOCRIT 40.3 % (35.0-50.0); HEMOGLOBIN 13.7 g/dL (12.0-18.0); LYMPHOCYTES 13.1 % (24-44); MCH 30.8 (27-36); MCHC 33.9 g/dl (30-36); MCV 90.8 fl (81-99); MONOCYTES 4.8 % (0-12); NEUTROPHILS 81.2 % (39-80); PLATELET COUNT 349 K/uL (140-440); RBC 4.44 M/ul (4.3-5.7); RDW 12.7 (10.5-15.0)
[2024-10-28 16:59] LABS: ALBUMIN 3.8 g/dL (3.4-5.0); ANION GAP 15.2 (7-21); BILIRUBIN, TOTAL 0.4 ng/dL (0.2-1.0); BUN/CREATININE RATIO 9.87 (6.0-28.6); CALCIUM 9.3 mg/dL (8.5-10.1); CREATININE, SERUM 0.81 mg/dL (0.55-1.02); MAGNESIUM 1.7 mg/dL (1.8-2.4); POTASSIUM 3.2 mmol/L (3.5-5.1); PROTEIN, TOTAL 7.6 g/dL (6.4-8.2)
[2024-10-28] MEDS ORDERED: LORazepam 2 MG/ML VIAL IV ONE (20:00)
[2024-10-28] MEDS ORDERED: CELEXA40 MG PO (21:10)
[2024-10-28] MEDS ORDERED: VENTOLIN HFA18 GM INH (21:10)
[2024-10-28] MEDS ORDERED: TRAZODONE HCL100 MG PO (21:10)
[2024-10-28] MEDS ORDERED: OMEPRAZOLE40 MG PO (21:10)
[2024-10-28] MEDS ORDERED: hydrOXYzine pamoate 50 MG HOME.PACK PO ONE (21:15)
[2024-10-28 21:25] VITALS: BP 125/79
[2024-10-28 22:47] LABS: N. GONORRRHOEAE BY PCR NOT DETECTED (NOT DETECT)
== END 2024-10-28 21:25 | disposition home or self-care (01) ==
LOC: ED 14:59
PROVIDERS: Emergency Medicine; Family Medicine
DX: R10.32 Left lower quadrant pain (principal); J45.909 Unspecified asthma, uncomplicated; Z59.00 Homelessness unspecified; Z88.0 Allergy status to penicillin; Z79.899 Other long term (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
CPT/HCPCS: 36415; 74177; 80053; 81001; 83690; 83735; 84703; 85025; 96375; 99284-25; J2060; J2405; Q9967

== ENCOUNTER 2024-12-22 06:34 | Emergency (ER) | payer OTHER ==
[~2024-12-22] VITALS: Ht 167.6 cm; Wt 83.9 kg
[2024-12-22] MEDS ORDERED: droPERidol 5 MG/2 ML VIAL IV ONE (07:00)
[2024-12-22] MEDS ORDERED: PROCHLORPERAZINE EDISYLATE 10 MG/2 ML VIAL IV ONE (07:00)
[2024-12-22] MEDS ORDERED: ondansetron HCL 4 MG/2 ML VIAL IV ONE (07:00)
[2024-12-22] MEDS ORDERED: SODIUM CHLORIDE 0.9% 1,000 ML IV ONE (07:00)
[2024-12-22] MEDS ORDERED: MORPHINE SULFATE 4 MG/ML VIAL IV ONE (07:00)
[2024-12-22 07:14] LABS: HEMOGLOBIN 13.2 g/dL (12.0-18.0); MCH 30.3 (27-36); MCHC 33.1 g/dl (30-36); MCV 91.5 fl (81-99); PLATELET COUNT 396 K/uL (140-440); RBC 4.37 M/ul (4.3-5.7); RDW 15.4 (10.5-15.0)
[2024-12-22 07:28] LABS: MAGNESIUM 1.7 mg/dL (1.8-2.4)
[2024-12-22 07:30] LABS: ALBUMIN 4.3 g/dL (3.4-5.0); ALBUMIN/GLOBULIN RATIO 1.08 (1.1-2.4); ANION GAP 18.8 (7-21); BILIRUBIN, TOTAL 0.5 mg/dL (0.2-1.0); BUN/CREATININE RATIO 13.63 (6.0-28.6); CALCIUM 9.9 mg/dL (8.5-10.1); CREATININE, SERUM 0.88 mg/dL (0.55-1.02); POTASSIUM 3.8 mmol/L (3.5-5.1); PROTEIN, TOTAL 8.3 g/dL (6.4-8.2)
[2024-12-22 07:31] LABS: BANDS, MANUAL DIFF 3; LYMPHOCYTES, MANUAL DIFF 6; MONOCYTES, MANUAL DIFF 5; NEUTROPHILS, MANUAL DIFF 86
[2024-12-22] MEDS ORDERED: diphenhydrAMINE HCL 50 MG/ML VIAL IV ONE (07:45)
[2024-12-22 08:47] LABS: BILIRUBIN, URINE NEGATIVE (negative); BLOOD/HGB, URINE NEGATIVE (Negative); KETONE, URINE NEGATIVE (Negative); LEUK ESTERASE, URINE NEGATIVE (negative); NITRITE, URINE NEGATIVE (negative); PH, URINE 8.5 (5-7)
[2024-12-22 09:00] LABS: CORONAVIRUS COVID-19 AG NEGATIVE (NEGATIVE); INFLUENZA A AG NEGATIVE (NEGATIVE); INFLUENZA B AG NEGATIVE (NEGATIVE)
[2024-12-22] MEDS ORDERED: ONDANSETRON ODT8 MG PO (09:16)
[2024-12-22 09:30] VITALS: BP 141/84
--- NOTE | 2024-12-23 21:09 | EKG ---
[facility] [address] [facility] [place], [place] [address] Signed Sinus rhythm with marked sinus arrhythmia Otherwise normal ECG Confirmed by Harpreet Brody MD ([id number]) on 12/23/2024 9:09:33 PM Electronically Signed By: HARPREET BRODY MD 12/[id number] PATIENT NAME: EH LITTLE JERILYN Electrocardiogram DATE OF : 89 PHYSICIAN: HARPREET BRODY MD REPORT #: [id number] REPORT IS CONFIDENTIAL AND NOT TO BE RELEASED WITHOUT AUTHORIZATION
== END 2024-12-22 09:30 | disposition home or self-care (01) ==
LOC: ED 06:34
PROVIDERS: Emergency Medicine; Family Medicine
DX: R11.2 Nausea with vomiting, unspecified (principal); R10.13 Epigastric pain; J45.909 Unspecified asthma, uncomplicated; Z88.0 Allergy status to penicillin; Z79.51 Long term (current) use of inhaled steroids; Z79.899 Other long term (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
CPT/HCPCS: 36415; 74177; 80053; 81003; 83690; 83735; 84703; 85025; 87502; 93005; 93010; 96375; 99284-25; G0480; J0780; J1200; J1790; J2270; J2405; J7030; Q9967; U0002